=== PATIENT | female | born 2000 | race Hispanic/Latino ===

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

== ENCOUNTER 2020-04-27 18:56 | Emergency (ER) | payer SELFPAY ==
[2020-04-27] MEDS ORDERED: NA CHLORIDE 0.9% 1,000 ML ONE (19:53)
[2020-04-27] MEDS ORDERED: MORPHINE 4 MG/ML SYR ONE (19:53)
[2020-04-27] MEDS ORDERED: ONDANSETRON 4 MG/2 ML VIAL ONE (19:53)
[2020-04-27 20:05] LABS: Absolute Lymphocytes (CBC) 1.4 K/uL (0.7-4.9); Basophils % 0.3 % (0-1.3); Hematocrit 37.9 % (36.0-45.0); Lymphocytes % 17.2 % (15.3-44.8); MPV 9.5 fL (7.6-11.3)
[2020-04-27 20:12] LABS: BUN Blood Urea Nitrogen 10 mg/dL (7-18); Bicarbonate 25 mmol/L (21-32); Glucose Level 119 mg/dL (74-106); Potassium 3.3 mmol/L (3.5-5.1); Sodium Level 141 mmol/L (136-145)
--- NOTE | 2020-04-27 21:09 | RAD REPORT ---
EXAM DESCRIPTION: US - Transvaginal Study Probe - 04/27/2020 8:32 pm CLINICAL HISTORY: ABD PAIN Pelvic pain. COMPARISON: No comparisons FINDINGS: The uterus is normal in size, shape and echotexture. The uterus measures 7.7 x 4.5 x 4.4 c m. The endometrial stripe measures 6 mm, normal. Both ovaries are normal in size, shape and echotexture. The right ovary measures 2.9 x 2.1 x 1.6 cm. The left ovary measures 2.8 x 1.8 x 1.4 cm. No ovarian or parovarian lesions. No adnexal masses. Normal Doppler blood flow was demonstrated to both ovaries. No significant pelvic ascites. IMPRESSION: Unremarkable study.
--- NOTE | 2020-04-27 21:40 | RAD REPORT ---
EXAM DESCRIPTION: CTAbdomen Pelvis W Contrast - 04/27/2020 9:16 pm CLINICAL HISTORY: Abdominal pain. ABD PAIN COMPARISON: No comparisons TECHNIQUE: Biphasic CT imaging of the abdomen and pelvis was performed with 100 ml non-ionic IV cont rast. All CT scans are performed using dose optimization technique as appropriate and may include automated exposure control or mA/KV adjustment according to patient size. FINDINGS: The lung bases are clear. The liver, spleen, pancreas, adrenal glands and kidneys are within normal limits. No bowel obstruction, free air, free fluid or abscess. The appendix is normal. No evidence of signi ficant lymphadenopathy. No suspicious bony findings. IMPRESSION: No acute intra-abdominal or pelvic finding.
[2020-04-27 21:42] LABS: Urine Blood 3+ (NEG); Urine Glucose NEGATIVE (NEG); Urine Protein 1+ (NEG); Urine Specific Gravity 1.025 (1.005-1.030)
--- NOTE | 2020-04-27 21:51 | EDPHYS ---
Physician Documentation [facility] Name: Juliet Elena Age: 19 yrs Sex: Female : 2000 Arrival Date: 04/27/2020 Time: 19:06 Bed 18 Private MD: ED Physician Jori Dominguez HPI: 04/27 22:10 This 19 yrs old Female presents to ER via Wheelchair with complaints of kb Vaginal Bleeding, Near Syncope. 22:10 The patient has not experienced similar symptoms in the past. The patient has not kb recently seen a physician. 22:11 The patient presents with abdominal pain in the left lower quadrant. Onset: The kb symptoms/episode began/occurred just prior to arrival. The symptoms do not radiate. Associated signs and symptoms: Pertinent positives: nausea, vomiting, and diarrhea, vaginal bleeding. The symptoms are described as constant, sharp. Modifying factors: The symptoms are alleviated by nothing, the symptoms are aggravated by nothing. Severity of pain: At its worst the pain was severe in the emergency department the pain is unchanged. Pt reports she started having severe LLQ pain, then vomiting and diarrhea. States the pain made her lightheaded and feel like she was going to pass out. . 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 - Social history:: Smoking status: Patient denies any tobacco usage or history of. ROS: 22:10 Constitutional: Negative for fever, chills, and weight loss, Cardiovascular: Negative kb for chest pain, palpitations, and edema, Respiratory: Negative for shortness of breath, cough, wheezing, and pleuritic chest pain, Back: Negative for injury and pain, MS/Extremity: Negative for injury and deformity, Skin: Negative for injury, rash, and discoloration. 22:10 Abdomen/GI: Positive for abdominal pain, nausea, vomiting, and diarrhea. 22:10 Neuro: Positive for near syncope. Exam: 22:09 Head/Face: Normocephalic, atraumatic. Chest/axilla: Normal chest wall appearance and kb motion. Nontender with no deformity. No lesions are appreciated. Cardiovascular: Regular rate and rhythm with a normal S1 and S2. No gallops, murmurs, or rubs. Normal PMI, no JVD. No pulse deficits. Respiratory: Lungs have equal breath sounds bilaterally, clear to auscultation and percussion. No rales, rhonchi or wheezes noted. No increased work of breathing, no retractions or nasal flaring. Back: No spinal tenderness. No costovertebral tenderness. Full range of motion. Skin: Warm, dry with normal turgor. Normal color with no rashes, no lesions, and no evidence of cellulitis. MS/ Extremity: Pulses equal, no cyanosis. Neurovascular intact. Full, normal range of motion. Neuro: Awake and alert, GCS 15, oriented to person, place, time, and situation. Cranial nerves II-XII grossly intact. Motor strength 5/5 in all extremities. Sensory grossly intact. Cerebellar exam normal. Normal gait. 22:09 Constitutional: The patient appears alert, awake, in obvious pain, pale. 22:09 Abdomen/GI: Inspection: abdomen appears normal, Bowel sounds: normal, in all quadrants, Palpation: soft, in all quadrants, moderate abdominal tenderness, in the left lower quadrant. Vital Signs: 19:15 BP 138 / 83; Pulse 80; Resp 16; Temp 97; Pulse Ox 100% on R/A; Weight 72.57 kg (R); lp1 Height 5 ft. 5 in. (165.10 cm); Pain 10/10; 19:45 BP 136 / 80; Pulse 84; Resp 16; Pulse Ox 97% on R/A; lp1 20:15 BP 122 / 83; Pulse 65; Resp 16; Pulse Ox 99% on R/A; lp1 21:15 BP 110 / 71; Pulse 81; Resp 18; Pulse Ox 99% on R/A; lp1 22:13 BP 104 / 51; Pulse 68; Resp 16; Pulse Ox 99% on R/A; lp1 19:15 Body Mass Index 26.63 (72.57 kg, 165.10 cm) lp1 MDM: 19:10 Patient medically screened. kb 22:04 Data reviewed: vital signs, nurses notes. Data interpreted: Pulse oximetry: on room air kb is 100 %. Interpretation: normal. Counseling: I had a detailed discussion with the patient and/or guardian regarding: the historical points, exam findings, and any diagnostic results supporting the discharge/admit diagnosis, lab results, radiology results, the need for outpatient follow up, a family practitioner, an OB/Gyne specialist, to return to the emergency department if symptoms worsen or persist or if there are any questions or concerns that arise at home. 22:09 ED course: Pt feeling better after intervention, color return to normal.. kb 04/27 19:11 Order name: Basic Metabolic Panel; Complete Time: 20:14 kb 04/27 19:11 Order name: CBC with Diff; Complete Time: 20:10 kb 04/27 19:11 Order name: US Transvaginal Study (Probe); Complete Time: 21:11 kb 04/27 20:58 Order name: CT Abd/Pelvis - IV Contrast Only; Complete Time: 21:41 kb 04/27 21:19 Order name: Urine Dipstick--Ancillary (enter results); Complete Time: 21:50 ar5 04/27 21:19 Order name: Urine --Ancillary (enter results); Complete Time: 21:50 ar5 04/27 19:11 Order name: IV Saline Lock; Complete Time: 19:38 kb 04/27 19:11 Order name: Labs collected and sent; Complete Time: 19:38 kb 04/27 19:11 Order name: Urine Dipstick-Ancillary (obtain specimen); Complete Time: 21:10 kb 04/27 19:11 Order name: Urine Test (obtain specimen); Complete Time: 21:10 kb Administered Medications: 19:45 Drug: NS 0.9% 1000 ml Route: IV; Rate: 1000 ml; Site: right antecubital; lp1 21:10 Follow up: IV Status: Completed infusion; IV Intake: 1000ml lp1 19:45 Drug: Zofran (Ondansetron) 4 mg Route: IVP; Site: right antecubital; lp1 21:11 Follow up: Response: Marked relief of symptoms lp1 19:45 Drug: morphine 4 mg Route: IVP; Site: right antecubital; lp1 21:11 Follow up: Response: Marked relief of symptoms lp1 22:08 Drug: Potassium Chloride 20 mEq Route: PO; lp1 22:09 Follow up: Response: Medication administered at discharge. lp1 Disposition: 04/27/20 21:51 Discharged to Home. Impression: Lower abdominal pain, unspecified. - Condition is Stable. - Discharge Instructions: Abdominal Pain, Adult, [id number]. - Prescriptions for Zofran 4 mg Oral Tablet - take 1 tablet by ORAL route every 6 hours As needed; 20 tablet. Diclofenac Sodium 75 mg Oral Tablet, Delayed Release (E.C.) - take 1 tablet by ORAL route 2 times per day As needed; 30 tablet. - Medication Reconciliation Form, Thank You Letter, Antibiotic Education, Prescription Opioid Use form. - Follow up: Emergency Department; When: As needed; Reason: Worsening of condition. Follow up: Private Physician; When: 2 - 3 days; Reason: Recheck today's complaints, Continuance of care, Re-evaluation by your physician. Addendum: 04/29/2020 21:46 Co-signature as Attending Physician, Jori Dominguez MD. r n Signatures: Dispatcher [employer] EDMT Sara Burkett, APPLE CHECKER-C APPLE CHECKER-Ckb Jori Dominguez MD MD rn Nereyda Cheng RN RN lp1 Corrections: (The following items were deleted from the chart) 04/27 22:14 21:51 04/27/2020 21:51 Discharged to Home. Impression: Lower abdominal pain, lp1 unspecified. Condition is Stable. Forms are Medication Reconciliation Form, Thank You Letter, Antibiotic Education, Prescription Opioid Use. Follow up: Emergency Department; When: As needed; Reason: Worsening of condition. Follow up: Private Physician; When: 2 - 3 days; Reason: Recheck today's complaints, Continuance of care, Re-evaluation by your physician. kb
--- NOTE | 2020-04-27 21:51 | ER ---
Nurse's Notes [facility] Name: Juliet Elena Age: 19 yrs Sex: Female : 2000 Arrival Date: 04/27/2020 Time: 19:06 Bed 18 Private MD: Diagnosis: Lower abdominal pain, unspecified Presentation: 04/27 19:15 Chief complaint: Patient states: About an hour ago patient became light headed, pain to lp1 LLQ of abdomen with x3 episodes of vomiting; reports vaginal bleeding. 19:15 Coronavirus screen: Client denies travel out of the [place] in the last 14 days. At this lp1 time, the client does not indicate any symptoms associated with coronavirus-19. Ebola Screen: No symptoms or risks identified at this time. Initial Sepsis Screen: Does the patient meet any 2 criteria? No. Patient's initial sepsis screen is negative. Does the patient have a suspected source of infection? No. Patient's initial sepsis screen is negative. Risk Assessment: Do you want to hurt yourself or someone else? Patient reports no desire to harm self or others. Onset of symptoms was April 27, 2020 at 18:00. 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 - Social history:: Smoking status: Patient denies any tobacco usage or history of. Screenin:19 Abuse screen: Denies threats or abuse. Denies injuries from another. Nutritional lp1 screening: No deficits noted. Tuberculosis screening: No symptoms or risk factors identified. Fall Risk None identified. Assessment: 19:35 General: Appears uncomfortable, Behavior is appropriate for age. Pain: Complains of lp1 pain in left lower quadrant Pain currently is 10 out of 10 on a pain scale. Quality of pain is described as sharp, stabbing. Neuro: Level of Consciousness is awake, alert, obeys commands, Oriented to person, place, time, situation, Pupils are PERRLA, Reports dizziness. Cardiovascular: Patient's skin is warm and dry. Respiratory: Respiratory effort is even, unlabored, Breath sounds are clear bilaterally. GI: Abdomen is non-distended, Pt is actively vomiting bile, Bowel sounds present X 4 quads. Abdomen is tender to palpation in left lower quadrant Reports nausea, vomiting. : Reports vaginal bleeding that is bright red. EENT: No signs and/or symptoms were reported regarding the EENT system. Derm: Skin is intact, Skin is dry, Skin is pale, Skin temperature is warm. 19:35 Musculoskeletal: No deficits noted. lp1 19:57 Reassessment: Ultrasound at bedside. lp1 21:09 Reassessment: Patient ambulated to bathroom independently Patient states feeling lp1 better. Patient states symptoms have improved. 22:10 Reassessment: Patient appears in no apparent distress at this time. Patient is alert, lp1 oriented x 3, equal unlabored respirations, skin warm/dry/pink. Patient denies pain at this time. Patient states feeling better. Vital Signs: 19:15 BP 138 / 83; Pulse 80; Resp 16; Temp 97; Pulse Ox 100% on R/A; Weight 72.57 kg (R); lp1 Height 5 ft. 5 in. (165.10 cm); Pain 10/10; 19:45 BP 136 / 80; Pulse 84; Resp 16; Pulse Ox 97% on R/A; lp1 20:15 BP 122 / 83; Pulse 65; Resp 16; Pulse Ox 99% on R/A; lp1 21:15 BP 110 / 71; Pulse 81; Resp 18; Pulse Ox 99% on R/A; lp1 22:13 BP 104 / 51; Pulse 68; Resp 16; Pulse Ox 99% on R/A; lp1 19:15 Body Mass Index 26.63 (72.57 kg, 165.10 cm) lp1 ED Course: 19:06 Patient arrived in ED. mr 19:10 [facility] Burkett [facility]C [facility] kb 19:10 Jori Dominguez MD is Attending Physician. kb 19:23 Nereyda Cheng, SAL is Primary Nurse. lp1 19:30 Patient has correct armband on for positive identification. Bed in low position. Call lp1 light in reach. Pulse ox on. NIBP on. 19:35 Arm band placed on. lp1 19:36 Inserted saline lock: 20 gauge in right antecubital area, using aseptic technique. dh4 Blood collected. 20:19 Triage completed. lp1 20:33 Ultrasound completed. Patient tolerated well. Notified ED Physician ale. sg3 20:33 US Transvaginal Study (Probe) In Process Unspecified. EDMS 21:16 CT Abd/Pelvis - IV Contrast Only In Process Unspecified. EDMS 22:13 No provider procedures requiring assistance completed. IV discontinued, No lp1 redness/swelling at site. Pressure dressing applied. Administered Medications: 19:45 Drug: NS 0.9% 1000 ml Route: IV; Rate: 1000 ml; Site: right antecubital; lp1 21:10 Follow up: IV Status: Completed infusion; IV Intake: 1000ml lp1 19:45 Drug: Zofran (Ondansetron) 4 mg Route: IVP; Site: right antecubital; lp1 21:11 Follow up: Response: Marked relief of symptoms lp1 19:45 Drug: morphine 4 mg Route: IVP; Site: right antecubital; lp1 21:11 Follow up: Response: Marked relief of symptoms lp1 22:08 Drug: Potassium Chloride 20 mEq Route: PO; lp1 22:09 Follow up: Response: Medication administered at discharge. lp1 Intake: 21:10 IV: 1000ml; Total: 1000ml. lp1 Outcome: 21:51 Discharge ordered by . kb 22:14 Discharged to home ambulatory, with family. lp1 22:14 Condition: good 22:14 Discharge instructions given to patient, Instructed on discharge instructions, follow up and referral plans. medication usage, Demonstrated understanding of instructions, follow-up care, medications, Prescriptions given X 2. 22:14 Patient left the ED. lp1 Signatures: Dispatcher [employer] EDMS Sara Burkett, JANET FIGUEROAP-Selma Alexander Laura, RN RN lp1 Chelly Scanlon 3 Niko García 4
[2020-04-27] MEDS ORDERED: POTASSIUM CL SA 10 MEQ TAB PO ONE (22:08)
[2020-04-27 23:05] VITALS: O2SAT 99
[2020-04-27 23:07] VITALS: TEMP 97
[2020-04-27 23:09] VITALS: BP 104/51
== END 2020-04-27 22:14 | disposition home or self-care (01) ==
LOC: ER 18:56
DX: R10.32 Left lower quadrant pain (principal); R11.2 Nausea with vomiting, unspecified
CPT/HCPCS: 36415; 74177; 76830; 80048; 81003; 81025; 85025; 96361; 96374; 96375; 99284; J2405; J7030; Q9967

== ENCOUNTER 2024-07-28 16:31 | Emergency (ER) | payer SELFPAY ==
--- OUTSIDE RECORDS SUMMARY | 2024-07-28 16:36 | XMS REPORT | Continuity of Care Document ---
Author Name Unknown Address [address] [facility]. [address] th[address] Address [address] [facility] 1 [address] [place] [address] Care Team Providers Care Social Worker Psychiatric Name Role Phone MERCY AZUL Primary Care Physician Unava MERCY Lawrence Attending Clinician Unavaila GLORIA Becker Attending Clinician Unavailable Gloria Ponce MD Attending Clinician [phone] Doctor Unassigned, Chambers Attending Clinician U Mercy Fernandez CNM Attending Clinician [phone] ZANA GLEASON Attending Clinician Unavail able [facility] Attending Clinician Unavail able Shea Mclaughlin NP Attending Clinician [phone] SHEA MCLAUGHLIN Attending Clinician Unavailable GLORIA PONCE Admitting Clinician Unavailable [facility] Admitting Clinician Unavail able SHEA MCLAUGHLIN Admitting Clinician Unavailable Payers Payer Name Policy Type Policy Number Effective Date Expirati on Date Source [facility] [id number] 2022 00:00:00 [facility] [id number] 2015 00:00:00 Problems Condition Name Condition Details Condition Category Status Onset Date Resolution Date Last Treatment Date Treating Clinician Comments Source Allergic rhinitis Allergic Rhinitis Problem Active 2023-07 00:00: 00 [facility] Exacerbati on of mild persistent asthma Exacerbati on of Mild Persistent Asthma Problem Active 2023-07 00:00: 00 [facility] History of HSV History of HSV Disease Active 2023-0 5-06 00:00: 00 [facility] Asthma Asthma Disease Active 08-02 00:00: 00 [facility] No known active problems No known active problems Disease [facility] Allergies, Adverse Reactions, Alerts Allergy Name Allergy Type Status Severity Reaction(s) Onset Date Inactive Date Treating Clinician Comments Source NO KNOWN ALLERGIE S Drug Class Active [facility] Social History Social Habit Start Date Stop Date Quantity Comments Source [facility]2 (event) 2022-11-02 00:00:00 2022-11-12 08:40:00 Not sure [facility] History of Social function 2022-11-12 00:00:00 2022-11-12 00:00:00 [facility] Tobacco use and exposure 2022-11-12 00:00:00 2022-11-12 00:00:00 Smokeless tobacco non-user [facility] Alcohol intake 2022-11-12 00:00:00 2022-11-12 00:00:00 Ex-drinker (finding) [facility] Alcohol Comment 2022-11-12 00:00:00 2022-11-12 00:00:00 socially [facility] Sex Assigned At 2000 00:00:00 2000 00:00:00 [facility] Smoking Status Start Date Stop Date Source Never smoked tobacco [facility] Medications Ordered Medication Name Filled Medication Name Start Date Stop Date Current Medication? Ordering Clinician Indication Dosage Frequency Signature (SIG) Comments Components Source TAKE 10 ML BY MOUTH EVERY 4 TO 6 HOURS NEEDED FOR COUGH AND CONGESTION 08-03 00:00: 00 Yes Toñito Keene TAKE 10 ML EVERY 4-6 HOURS NEEDED FOR COUGH AND CONGESTION 08-03 00:00: 00 11-01 00:00 :00 No [id number] Toñito Keene ketorolac (TORADOL) injection 30 mg 2022-07 10:00: 00 07-05 09:03 :00 No 30mg 30 mg, Slow IV Push, ONCE, 1 dose, On Tue07/05/23 at 0400, [facility] NaCl 0.9% (NS) bolus infusion 1,000 mL 2022-07 09:45: 00 07-05 10:06 :00 No 1000mL at 999 mL/hr, 1,000 mL, IV Infusion, ONCE, 1 dose, On Tue07/05/23 at 0345, STAT [facility] ondansetron (ZOFRAN (PF)) injection 4 mg 2022-07 09:00: 00 07-05 08:06 :00 No 4mg 4 mg, Slow IV Push, ONCE, 1 dose, On Tue07/05/23 at 0300, [facility] FENTanyl PF (SUBLIMAZE (PF)) injection 75 mcg 2022-07 09:00: 00 07-05 08:07 :00 No 75ug 75 mcg, Slow IV Push, ONCE, 1 dose, On Tue07/05/23 at 0300, STAT [facility] NaCl 0.9% (NS) bolus infusion 1,000 mL 2022-07 09:00: 00 07-05 09:40 :00 No 1000mL at 999 mL/hr, 1,000 mL, IV Infusion, ONCE, 1 dose, On Tue07/05/23 at 0300, STAT [facility] cefTRIAXone (ROCEPHIN) 1,000 mg in NaCl 0.9% (NS) 100 mL MINI-BAG 2022-07 08:45: 00 07-05 09:40 :00 No 1000mg 1,000 mg, IV Piggyback, ONCE, 1 dose, On Tue07/05/23 at 0245, Administer over 30 Minutes, 100 mL
Reas on for Anti-Infec tive: Documented Infection< br>Documen janessa Infection Site: Urine
D uration of Therapy: Other (see Comments) [facility] iopamidol (ISOVUE 370-500 mL) injection 100 mL 2022-07 08:45: 00 07-05 08:45 :00 No [id number] 100mL 100 mL, Intravenou s, ONCE, 1 dose, On Tue07/05/23 at 0245, Routine [facility] TAKE 1 CAPSULE BY MOUTH IN THE MORNING TAKE 1 CAPSULE AT NOON & TAKE 1 CAPSULE IN THE EVENING 2022-07 00:00: 00 Yes Toñito Keene TAKE 1 TABLET BY MOUTH TWICE A DAY (IN THE MORNING AND IN THE EVENING) WITH FOOD FOR 10 DAYS 2022-07 00:00: 00 Yes Toñito Keene TAKE 1 TABLET BY MOUTH EVERY 4 HOURS NEEDED FOR NAUSEA AND VOMITING 2022-07 00:00: 00 Yes Toñito Keene TAKE 1 TABLET EVERY 8 HOURS WITH FOOD NEEDED. 2022-07 00:00: 00 11-01 00:00 :00 No 800 Toñito Keene cephALEXin (KEFLEX) 500 mg capsule 2022-07 00:00: 00 07-05 00:00 :00 No [id number] 500mg Take 1 capsule by mouth in the morning and 1 capsule at noon and 1 capsule in the evening. [facility] ondansetron 4 mg disintegrat ing tablet 2022-07 00:00: 00 07-05 00:00 :00 No [id number] 4mg Take 1 tablet by mouth every 4 (four) hours as needed for Nausea and Vomiting (N/V). [facility] naproxen 500 mg tablet 2022-07 00:00: 00 07-05 00:00 :00 No [id number] 500mg Take 1 tablet by mouth in the morning and 1 tablet in the evening. Take with meals. Do all this for 10 days. [facility] TAKE 1 TABLET DAILY. 2022-07 00:00: 00 Yes 2535 Toñito Keene TAKE 1 TABLET DAILY. 2022-07 00:00: 00 11-01 00:00 :00 No 2535 Toñito Keene TAKE ONE (1) TABLET BY MOUTH EVERY SIX HOURS. 12-31 00:00: 00 Yes Toñito Keene TAKE ONE (1) TABLET BY MOUTH THREE TIMES A DAY. 12-31 00:00: 00 Yes Toñito Keene SWISH AND SPIT 15 ML BY MOUTH TWICE A DAY. 12-31 00:00: 00 Yes Toñito Keene TAKE 1 TABLET DAILY. 6-08 00:00: 00 11-01 00:00 :00 No 2535 Toñito Keene RINSE AND EXPECTORATE WITH 1/2 OUNCE FOR 30 SECONDS TWICE A DAY 12-01 00:00: 00 Yes Toñito Keene TAKE 1 TABLET BY MOUTH TWICE A DAY FOR 7 DAYS 12-01 00:00: 00 Yes Toñito Keene albuterol 90 mcg/actuati on inhaler 11-12 09:16: 28 Yes [id number] albuterol sulfate HFA 90 mcg/actuat ion aerosol inhaler Inhale 2 puffs every 4 hours by inhalation route as needed. [facility] norgestimat e-ethinyl estradiol (SPRINTEC, 28, ORAL) 11-12 09:16: 28 Yes [id number] Take by mouth. [facility] TAKE 1 TABLET DAILY. 4-11 00:00: 00 11-01 00:00 :00 No 2535 Toñito Keene TAKE 1 TABLET DAILY. -03 00:00: 00 11-01 00:00 :00 No 2535 Toñito Keene TAKE 1 TABLET 3 TIMES DAILY. 10-05 00:00: 00 11-01 00:00 :00 No 1 Toñito Keene TAKE 1 TABLET TWICE DAILY WITH MEALS 09-29 00:00: 00 11-01 00:00 :00 No [id number] Toñito Keene TAKE 1 TABLET EVERY 8 HOURS WITH FOOD NEEDED. 16 00:00: 00 11-01 00:00 :00 No 800 Toñito Keene ketorolac (TORADOL) injection 30 mg 2021-07 02:00: 00 06-13 01:07 :00 No 30mg 30 mg, Slow IV Push, ONCE, 1 dose, On 06/12/22 at 2000, Routine [facility] ondansetron (ZOFRAN (PF)) injection 4 mg 2021-07- 01:00: 00 06-13 01:08 :00 No 4mg 4 mg, Slow IV Push, ONCE, 1 dose, On 06/12/22 at 1900, MARTITA [facility] TAKE 1 CAPSULE BY MOUTH EVERY 6 (SIX) HOURS FOR 5 DAYS. 2021-07 00:00: 00 Yes Toñito Keene TAKE 1 TABLET BY MOUTH EVERY 8 HOURS NEEDED FOR NAUSEA AND VOMITING . 2021-07 00:00: 00 Yes Toñito Keene ondansetron 4 mg disintegrat ing tablet 2021-07 00:00: 00 11-12 00:00 :00 No [id number] 4mg Take 1 tablet by mouth every 8 (eight) hours as needed for Nausea and Vomiting (N/V). [facility] cephALEXin 250 mg capsule 2021-07 00:00: 00 06-18 05:59 :00 No [id number] 250mg Take 1 capsule by mouth every 6 (six) hours for 5 days. [facility] Dose Unknown 2018-07 00:00: 00 Yes Toñito Keene Dose Unknown 2018-07 00:00: 00 Yes Toñito Keene Trelegy Ellipta 200 mcg-62.5 mcg-25 mcg powder for inhalation Inhale 1 puff every day by inhalation route. Trelegy Ellipta 200 mcg-62.5 mcg-25 mcg powder for inhalation Inhale 1 puff every day by inhalation route. No 1puff(s ) Q1D Trelegy Ellipta 200 mcg-62.5 mcg-25 mcg powder for inhalation Inhale 1 puff every day by inhalation route. [facility] montelukast 10 mg tablet Take 1 tablet every day by oral route for 90 days. montelukast 10 mg tablet Take 1 tablet every day by oral route for 90 days. No 1 Q1D montelukas t 10 mg tablet Take 1 tablet every day by oral route for 90 days. [facility] Immunizations Ordered Immunization Name Filled Immunization Name Date Status Comments Source HPV9 2022-11-12 00:00:00 Completed [facility] SARS-COV-2 COVID-19 PFIZER VACCINE 2021-02-24 00:00:00 Completed [facility] Meningococcal Polysaccharide (groups A, C, Y and W-135) conjugate vaccine (MCV4P) 2017-06-23 00:00:00 Completed [facility] Meningococcal Polysaccharide (groups A, C, Y and W-135) conjugate vaccine (MCV4P) 2017-06-23 00:00:00 Completed [facility] Meningococcal Polysaccharide (groups A, C, Y and W-135) conjugate vaccine (MCV4P) 2017-06-23 00:00:00 Completed [facility] Influenza Virus Vaccine Quad IM 6-35 MO 2016-04-09 00:00:00 Completed [facility] Influenza Virus Vaccine 2016-04-09 00:00:00 Completed [facility] Influenza, injectable Influenza, injectable 2016-04-09 00:00:00 Completed Toñito Keene HEPATITIS A 2011-10-27 00:00:00 Completed [facility] HPV 2011-10-17 00:00:00 Completed [facility] HEPATITIS A 2010-09-28 00:00:00 Completed [facility] Meningococcal Polysaccharide (groups A, C, Y and W-135) conjugate vaccine (MCV4P) 2010-09-28 00:00:00 Completed [facility] TDAP 2010-09-28 00:00:00 Completed [facility] DTaP, Unspecified Formulation 2002-09-24 00:00:00 Completed [facility] DTAP 2002-09-24 00:00:00 Completed [facility] IPV 2002-09-24 00:00:00 Completed [facility] MMR 2002-09-24 00:00:00 Completed [facility] Hep B, Adol or Pedi Dosage 1998 00:00:00 Completed [facility] Meningococcal Polysaccharide (groups A, C, Y and W-135) conjugate vaccine (MCV4P) Unknown Completed [facility] HPV9 Unknown Completed [facility] HPV Unknown Completed [facility] DTAP Unknown Completed [facility] HEPATITIS A Unknown Completed [facility] Hep B, Adol or Pedi Dosage Unknown Completed [facility] Influenza Virus Vaccine Unknown Completed [facility] SARS-COV-2 COVID-19 PFIZER VACCINE Unknown Completed [facility] IPV Unknown Completed [facility] MMR Unknown Completed [facility] TDAP Unknown Completed [facility] DTaP, Unspecified Formulation Unknown Completed [facility] Influenza Virus Vaccine Quad IM 6-35 MO Unknown Completed [facility] Meningococcal Polysaccharide (groups A, C, Y and W-135) conjugate vaccine (MCV4P) Unknown Completed [facility] HPV9 Unknown Completed [facility] HPV Unknown Completed [facility] DTAP Unknown Completed [facility] HEPATITIS A Unknown Completed [facility] Hep B, Adol or Pedi Dosage Unknown Completed [facility] Influenza Virus Vaccine Unknown Completed [facility] SARS-COV-2 COVID-19 PFIZER VACCINE Unknown Completed [facility] IPV Unknown Completed [facility] MMR Unknown Completed [facility] TDAP Unknown Completed [facility] DTaP, Unspecified Formulation Unknown Completed [facility] Influenza Virus Vaccine Quad IM 6-35 MO Unknown Completed [facility] Vital Signs Vital Name Observation Time Observation Value Comments S ource Height 2024-04-27 00:00:00 65 [in_i] [facility] BMI (Body Mass Index) 2024-04-27 00:00:00 30.8 kg/m2 [facility] Body Weight 2024-04-27 00:00:00 2963.2 [oz_av] [facility] BP Diastolic 2024-04-27 00:00:00 117 mm[Hg] [facility] BP Systolic 2024-04-27 00:00:00 129 mm[Hg] [facility] BP Systolic 2023-11-10 00:00:00 110 mm[Hg] [facility] Body Weight 2023-11-10 00:00:00 3052.8 [oz_av] [facility] BP Diastolic 2023-11-10 00:00:00 91 mm[Hg] [facility] Height 2023-11-10 00:00:00 65 [in_i] [facility] BMI (Body Mass Index) 2023-11-10 00:00:00 31.8 kg/m2 [facility] Systolic blood pressure 2023-07-05 09:19:00 111 mm[Hg] [facility] Diastolic blood pressure 2023-07-05 09:19:00 67 mm[Hg] [facility] Heart rate 2023-07-05 09:19:00 81 /min [facility] Respiratory rate 2023-07-05 09:19:00 18 /min [facility] Oxygen saturation in Arterial blood by Pulse oximetry 2023-07-05 09:19:00 100 /min [facility] Body temperature 2023-07-05 07:15:00 36.78 Erendira [facility] Body height 2023-07-05 07:15:00 167.6 cm [facility] Body weight 2023-07-05 07:15:00 85.049 kg [facility] BMI 2023-07-05 07:15:00 30.26 kg/m2 [facility] Systolic blood pressure 2022-11-12 14:00:00 135 mm[Hg] [facility] Diastolic blood pressure 2022-11-12 14:00:00 83 mm[Hg] [facility] Heart rate 2022-11-12 14:00:00 82 /min [facility] Body temperature 2022-11-12 14:00:00 36.33 Erendira [facility] Respiratory rate 2022-11-12 14:00:00 20 /min [facility] Body height 2022-11-12 14:00:00 167.6 cm [facility] Body weight 2022-11-12 14:00:00 81.829 kg [facility] BMI 2022-11-12 14:00:00 29.12 kg/m2 [facility] Height 2022-08-02 00:00:00 65 [in_i] [facility] BMI (Body Mass Index) 2022-08-02 00:00:00 29.4 kg/m2 [facility] BP Systolic 2022-08-02 00:00:00 106 mm[Hg] [facility] Body Weight 2022-08-02 00:00:00 2824 [oz_av] [facility] BP Diastolic 2022-08-02 00:00:00 80 mm[Hg] [facility] Systolic blood pressure 2022-06-13 02:00:00 116 mm[Hg] [facility] Diastolic blood pressure 2022-06-13 02:00:00 67 mm[Hg] Lindsay o [facility] Heart rate 2022-06-13 02:00:00 72 /min [facility] Respiratory rate 2022-06-13 02:00:00 16 /min [facility] Oxygen saturation in Arterial blood by Pulse oximetry 2022-06-13 02:00:00 100 /min [facility] Body temperature 2022-06-13 00:54:02 37.22 Erendira [facility] Body height 2022-06-13 00:39:00 167.6 cm [facility] Body weight 2022-06-13 00:39:00 79.379 kg [facility] BMI 2022-06-13 00:39:00 28.25 kg/m2 [facility] BP Systolic 2024-06-15 15:01:00 134 mm[Hg] Step [facility] BP Diastolic 2024-06-15 15:01:00 70 mm[Hg] Darwin phen [facility] Weight Measured 2024-06-15 15:01:00 191.00 pounds Toñitosalvador Keene Height Measured 2024-06-15 15:01:00 66.00 inches Toñitosalvador Keene Body Temperature 2024-06-15 15:01:00 98.20 degrees Toñito F Jassi Heart Rate 2024-06-15 15:01:00 69.00 /min Bella en F [facility] Respiratory Rate 2024-06-15 15:01:00 18.00 /min Toñito F Jassi BP Systolic 2024-06-05 17:48:00 118 mm[Hg] Step hen F [facility] BP Diastolic 2024-06-05 17:48:00 67 mm[Hg] Darwin phen [facility] Weight Measured 2024-06-05 17:48:00 191.40 pounds Toñitosalvador Keene Height Measured 2024-06-05 17:48:00 66.00 inches Toñitosalvador Keene Body Temperature 2024-06-05 17:48:00 98.40 degrees Toñito F Jassi Heart Rate 2024-06-05 17:48:00 80.00 /min Bella en F [facility] Respiratory Rate 2024-06-05 17:48:00 Toñito F Jassi BP Systolic 2024-04-04 08:38:00 116 mm[Hg] Step hen F [facility] BP Diastolic 2024-04-04 08:38:00 67 mm[Hg] Darwin phen F [facility] Weight Measured 2024-04-04 08:38:00 185.50 pounds Toñito F Jassi Height Measured 2024-04-04 08:38:00 66.00 inches Toñito F Jassi Body Temperature 2024-04-04 08:38:00 97.90 degrees Toñito F Jassi Heart Rate 2024-04-04 08:38:00 71.00 /min Bella en F [facility] Respiratory Rate 2024-04-04 08:38:00 18.00 /min Toñito F Jassi BP Systolic 2024-01-09 16:49:00 128 mm[Hg] Step hen F [facility] BP Diastolic 2024-01-09 16:49:00 81 mm[Hg] Darwin phen F [facility]ass[facility] Weight Measured 2024-01-09 16:49:00 178.00 pounds Toñito F Jassi Height Measured 2024-01-09 16:49:00 66.00 inches Toñito F Jassi Body Temperature 2024-01-09 16:49:00 97.40 degrees Toñito F Jassi Heart Rate 2024-01-09 16:49:00 72.00 /min Bella en F [facility] Respiratory Rate 2024-01-09 16:49:00 Toñito F Jassi BP Systolic 2023-08-03 17:24:00 136 mm[Hg] Step hen F [facility] BP Diastolic 2023-08-03 17:24:00 85 mm[Hg] Darwin phen F [facility] Weight Measured 2023-08-03 17:24:00 186.00 pounds Toñito F Jassi Height Measured 2023-08-03 17:24:00 66.00 inches Toñito F Jassi Body Temperature 2023-08-03 17:24:00 98.30 degrees Toñito F Jassi Heart Rate 2023-08-03 17:24:00 116.00 /min Step [facility] Respiratory Rate 2023-08-03 17:24:00 Toñito F Jassi BP Systolic 2023-07-05 15:22:00 111 mm[Hg] Step hen F [facility]ass[facility] BP Diastolic 2023-07-05 15:22:00 72 mm[Hg] Darwin phen F [facility] Weight Measured 2023-07-05 15:22:00 189.00 pounds Toñito F Jassi Height Measured 2023-07-05 15:22:00 66.00 inches Toñtio F Jassi Body Temperature 2023-07-05 15:22:00 97.90 degrees Toñito F Jassi Heart Rate 2023-07-05 15:22:00 74.00 /min Bella en F Jassi Respiratory Rate 2023-07-05 15:22:00 18.00 /min Toñito F Jassi BP Systolic 2023-05-09 16:58:00 122 mm[Hg] Step hen F [facility]ass[facility] BP Diastolic 2023-05-09 16:58:00 73 mm[Hg] Darwin phen F [facility]ass[facility] Weight Measured 2023-05-09 16:58:00 185.40 pounds Toñito F Jassi Height Measured 2023-05-09 16:58:00 66.00 inches Toñito F Jassi Body Temperature 2023-05-09 16:58:00 97.40 degrees Toñito F Jassi Heart Rate 2023-05-09 16:58:00 67.00 /min Bella en F Jassi Respiratory Rate 2023-05-09 16:58:00 Toñito F Jassi BP Systolic 2023-02-25 15:01:00 120 mm[Hg] Step hen F Jassi BP Diastolic 2023-02-25 15:01:00 65 mm[Hg] Darwin phen F [facility] Weight Measured 2023-02-25 15:01:00 185.00 pounds Toñito F Jassi Height Measured 2023-02-25 15:01:00 66.00 inches Toñito F Jassi Body Temperature 2023-02-25 15:01:00 97.90 degrees Toñito F Jassi Heart Rate 2023-02-25 15:01:00 73.00 /min Bella en F Jassi Respiratory Rate 2023-02-25 15:01:00 Toñito F Jassi BP Systolic 2022-12-15 16:10:00 130 mm[Hg] Step hen F Jassi BP Diastolic 2022-12-15 16:10:00 77 mm[Hg] Darwin phen [facility] Weight Measured 2022-12-15 16:10:00 182.80 pounds Toñito F Jassi Height Measured 2022-12-15 16:10:00 66.00 inches Toñito F Jassi Body Temperature 2022-12-15 16:10:00 97.40 degrees Toñito F Jassi Heart Rate 2022-12-15 16:10:00 70.00 /min Bella en F Jassi Respiratory Rate 2022-12-15 16:10:00 Toñito F Jassi BP Systolic 2022-10-19 15:55:00 120 mm[Hg] Step hen F Jassi BP Diastolic 2022-10-19 15:55:00 75 mm[Hg] Darwin phen F [facility]ass[facility] Weight Measured 2022-10-19 15:55:00 184.60 pounds Toñito F Jassi Height Measured 2022-10-19 15:55:00 66.00 inches Toñito F Jassi Body Temperature 2022-10-19 15:55:00 97.90 degrees Toñito F Jassi Heart Rate 2022-10-19 15:55:00 70.00 /min Bella en F Jassi Respiratory Rate 2022-10-19 15:55:00 Toñito F Jassi BP Systolic 2022-10-11 15:43:00 130 mm[Hg] Step hen F Jassi BP Diastolic 2022-10-11 15:43:00 68 mm[Hg] Darwin phen F Jass[facility] Weight Measured 2022-10-11 15:43:00 182.40 pounds Toñito F Jassi Height Measured 2022-10-11 15:43:00 66.00 inches Toñito F Jassi Body Temperature 2022-10-11 15:43:00 98.50 degrees Toñito F Jassi Heart Rate 2022-10-11 15:43:00 76.00 /min Bella en F Jassi Respiratory Rate 2022-10-11 15:43:00 Toñito F Jassi BP Systolic 2022-10-05 16:19:00 133 mm[Hg] Step hen F Jassi BP Diastolic 2022-10-05 16:19:00 74 mm[Hg] Darwin phen F Jass[facility] Weight Measured 2022-10-05 16:19:00 181.40 pounds Toñito F Jassi Height Measured 2022-10-05 16:19:00 66.00 inches Toñito F Jassi Body Temperature 2022-10-05 16:19:00 97.90 degrees Toñito F Jassi Heart Rate 2022-10-05 16:19:00 77.00 /min Bella en F Jassi Respiratory Rate 2022-10-05 16:19:00 Toñito Keene BP Systolic 2022-09-23 15:26:00 118 mm[Hg] Melvin Keene BP Diastolic 2022-09-23 15:26:00 67 mm[Hg] Darwin Keene Weight Measured 2022-09-23 15:26:00 181.40 pounds Toñito Keene Height Measured 2022-09-23 15:26:00 66.00 inches Toñito Keene Body Temperature 2022-09-23 15:26:00 98.50 degrees Toñito Keene Heart Rate 2022-09-23 15:26:00 89.00 /min Bella en Danay Keene Respiratory Rate 2022-09-23 15:26:00 24.00 /min Toñito Keene Procedures Procedure Date / Time Performed Performing Clinicia n Source CT ABDOMEN PELVIS W CONTRAST 2023-07-05 07:57:14 Gloria Ponce [facility] LIPASE 2023-07-05 07:33:00 Gloria Ponce [facility] COMP. METABOLIC PANEL ([id number]) 2023-07-05 07:33:00 Gloria Ponce [facility] CBC WITH DIFF 2023-07-05 07:33:00 Gloria Ponce [facility] URINALYSIS 2023-07-05 07:33:00 Gloria Ponce [facility] POCT TEST 2023-07-05 07:26:00 Rosy Ponce [facility] NOTICE OF PRIVACY PRACTICES 2023-07-05 07:11:46 Doctor Unassigned, Chambers [facility] CONSENT/REFUSAL FOR DIAGNOSIS AND TREATMENT 2023-07-05 07:11:11 Doctor Unassigned, Chambers [facility] PAP SMEAR-LIQUID BASED-CP 2022-11-12 16:34:00 Mercy Azul [facility] GARDASIL 9 (HPV 9V) VACCINE 2022-11-12 14:41:46 Mercy Azul [facility] ASSIGNMENT OF BENEFITS 2022-11-12 13:38:22 Docto r Unassigned, Chambers [facility] CT ABDOMEN PELVIS WO CONTRAST 2022-06-13 01:18:23 Shea Mclaughlin [facility] COMP. METABOLIC PANEL ([id number]) 2022-06-13 01:07:00 Shea Mclaughlin [facility] CBC WITH DIFF 2022-06-13 01:07:00 Shea Mclaughlin [facility] URINALYSIS 2022-06-13 01:07:00 Shea Mclaughlin [facility] POCT TEST 2022-06-13 01:07:00 Shea Mclaughlin [facility] NOTICE OF PRIVACY PRACTICES 2022-06-13 00:34:58 Doctor Unassigned, Chambers [facility] CONSENT/REFUSAL FOR DIAGNOSIS AND TREATMENT 2022-06-13 00:34:28 Doctor Unassigned, Chambers [facility] Encounters Start Date/Time End Date/Time Encounter Type Admission Type Attending [facility] Facility Care Department Encounter ID Source 2024-07-03 09:20:09 2024-07-03 09:20:[address] [facility] [id number] Toñito Keene 2024-06-15 00:00:00 2024-06-15 00:00:00 Outpatient Visit [facility] [id number] Toñito Keene 2024-06-05 17:34:10 2024-06-05 17:34:10 Outpatient [facility] [id number] Toñito Keene 2024-06-05 00:00:00 2024-06-05 00:00:00 Outpatient Visit [facility] [id number] Toñito Keene 2024-04-27 00:00:00 2024-04-27 00:00:00 BEVERLY Whelan-: [address] [address] , Ph. Formerly [facility], [facility]–1983 - [facility]_Need [facility] [id number] [facility] 2024-04-04 08:32:45 2024-04-04 08:32:[address] [facility] [id number] Toñito Keene 2024-04-04 00:00:00 2024-04-04 00:00:00 Outpatient Visit [facility] [id number] Toñito Keene 2024-01-09 16:47:19 2024-01-09 16:47:[address] 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 Formerly [facility], 1928–1983 - [facility] Office [id number] [facility] 2023-08-03 17:13:14 2023-08-03 17:13:[address] [facility] [facility] [id number] Toñito Keene 2023-07-05 15:13:41 2023-07-05 15:13:[address] [facility] [id number] Toñito Keene 2023-07-05 01:29:00 2023-07-05 04:13:00 Emergency X GLORIA PONCE [facility] ERT [id number] [facility] 2023-07-05 01:29:00 2023-07-05 04:13:00 Emergency Gloria Ponce [facility] 1.2.840.114 350.1.13.10 4.2.7.2.686 [id number] [facility] 2023-07-05 00:00:00 2023-07-05 00:00:00 Orders Only Doctor Unassigned, [facility] 1.2.840.114 350.1.13.10 4.2.7.2.686 [id number] [facility] 2023-05-09 16:52:07 2023-05-09 16:52:[address] [facility] [facility] 1030 Toñito Jon Caneadea 2023-02-25 15:02:57 2023-02-25 15:02:[address] [facility] 0818 Toñito Jon Caneadea 2022-12-15 15:58:16 2022-12-15 15:58:[address] [facility] [facility] 0607 Toñito Jon Caneadea 2022-11-12 09:00:00 2022-11-12 09:53:38 Outpatient R [facility] [id number] [facility] 2022-11-12 09:00:00 2022-11-12 09:53:38 Office Visit Mercy Azul [facility] 1.2.840.114 350.1.13.10 4.2.7.2.686 [id number] [facility] 2022-11-12 00:00:00 2022-11-12 00:00:00 Orders Only Doctor Unassigned, Chambers [facility] 1.2.840.114 350.1.13.10 4.2.7.2.686 [id number] [facility] 2022-10-19 15:47:56 2022-10-19 15:47:[address] [facility] [facility] [id number] Toñito Keene 2022-10-11 15:40:17 2022-10-11 15:40:[address] [facility] [id number] Toñito Jon Caneadea 2022-10-05 16:14:49 2022-10-05 16:14:49 Outpatient [facility] [id number] Toñito Keene 2022-09-23 15:25:56 2022-09-23 15:25:56 Outpatient [facility] 0316 Toñito Keene 2022-08-02 00:00:00 2022-08-02 00:00:00 Outpatient GC_CPC_Walk InSchedul [facility] [id number] [facility] 2022-08-02 00:00:00 2022-08-02 00:00:00 Thea Talbot PA: [id number] [address] , Ph. Formerly [facility], [facility]–1983 - GC_CPC_Need martina Office [id number] [facility] 2022-06-12 18:51:00 2022-06-12 20:28:00 Emergency Shea Mclaughlin Tiffani [facility] 1.2.840.114 350.1.13.10 4.2.7.2.686 [id number] [facility] 2022-06-12 18:51:00 2022-06-12 20:28:00 Emergency X SHEA MCLAUGHLIN [facility] ERT [id number] [facility] 2022-06-10 10:07:51 2022-06-10 10:07:51 Outpatient [facility] 1201 Toñito Keene Results Test Description Test Time Test Comments Results Result Co mments Source [id number] 04:53:51* Test Item Value Reference Range Interpretation Comme nts TESTOSTERONE (test code = 2830) <12 NG/DL <=55 NOTE: TOTAL TESTOSTERONE ASSAY SENSITIVITY IS 12 NG/DL. TO DETERMINE NORMAL VS. SUBNORMAL TESTOSTERONE IN CHILDREN AND WOMEN, CONSIDER TESTING WITH ULTRASENSITIVE TESTOSTERONE. [id number] 04:53:41* Test Item Value Reference Range Interpretation Comme nts PROLACTIN (test code = 2800) 19.4 NG/ML 5.0-37.0 NOTE: Methodolog y is Carline Olimpia Electrochemiluminescence Immunoassay (ECLIA). Values obtained with different assays/manufacturers cannot be used interchangeably. Results should not be used as sole basis to establish the presence or absence of malignancy. FSH + LH [id number] 04:53:41* Test Item Value Reference Range Interpretation Comme nts FOLLICLE STIM HORMONE (test code = 2700) 7.1 IU/L SEE BELOW EXPEC JANESSA VALUES FOR FSH FOR FEMALES >17 YEARS FOLLICULAR 3.5-12.5 IU/L MID-CYCLE PEAK 4.7-21.5 IU/L LUTEAL PHASE 1.7-7.7 IU/L POSTMENOPAUSAL 25.8-134.8 IU/L LUTEINIZING HORMONE (test code = 2776) 7.0 IU/L SEE BELOW EXPEC JANESSA VALUES FOR LH FOR FEMALES >17 YEARS MALES FEMALES >=18 YEARS 1.8-8.6 IU/L FOLLICULAR 2.4-12.6 IU/L MID-CYCLE PEAK 14.0-95.6 IU/L LUTEAL PHASE 1.0-11.4 IU/L POSTMENOPAUSAL 7.7-58.5 IU/L [id number] 04:53:41* Test Item Value Reference Range Interpretation Comme nts PROGESTERONE (test code = 2790) <0.20 NG/ML SEE BELOW EXPECTED VALUES FOR PROGESTERONE MALE . . . . . . . . . . . . . . . . NG/ML <0.20 FEMALE FOLLICULAR PHASE . . . . . . . . . NG/ML <0.90 OVULATION . . . . . . . . . . . . NG/ML <12.00 LUTEAL PHASE . . . . . . . . . . . NG/ML 1.83-23.90 POSTMENOPAUSAL . . . . . . . . . . NG/ML <0.20 1ST TRIMESTER. . . . . . . . . . . NG/ML 11.00-44.30 2ND TRIMESTER. . . . . . . . . . . NG/ML 25.40-83.30 3RD TRIMESTER. . . . . . . . . . . NG/ML 58.70-214.00 [id number] 04:53:41* Test Item Value Reference Range Interpretation Comme nts ESTRADIOL (test code = 2505) 30.0 PG/ML SEE BELOW EXPECTED VALUES FOR ESTRADIOL FOR FEMALES >=18 YEARS FOLLICULAR . . . . . . . . . . . . . PG/ML 12.4-233.0 OVULATION. . . . . . . . . . . . . . PG/ML 41.0-398.0 LUTEAL PHASE . . . . . . . . . . . . PG/ML 22.3-341.0 POSTMENOPAUSAL SUPPLEMENTED/NON-SUPP . PG/ML <138.0/<20.0 NOTE: TO DETERMINE NORMAL VS. SUBNORMAL ESTRADIOL IN POSTMENOPAUSAL FEMALES, CONSIDER ULTRASENSITIVE ESTRADIOL ([facility] ORDER CODE 5678). METHODOLOGY IS CARLINE OLIMPIA ELECTROCHEMILUMINESCENT IMMUNOASSAY WITH A LIMIT OF DETECTION OF 17 PG/ML. TSH, THIRD [id number] 04:53:41* Test Item Value Reference Range Interpretation Comme [facility] TSH, THIRD GENERATION (test code = 2821) 2.000 UIU/ML 0.400-4.100 HCG, [id number] 04:08:38* Test Item Value Reference Range Interpretation Comme nts HCG, QUANTITATIVE (test code = 2506) <5 MIU/ML SEE BELOW EXPEC JANESSA VALUES FOR HCG GST.AGE UNITS RANGE GST. AGE UNITS RANGE3 WEEKS MIU/ML 6-71 10 WEEKS MIU/ML 46,509-186,9774 WEEKS MIU/ML 10-750 12 WEEKS MIU/ML 27,832-210,6125 WEEKS MIU/ML 217-7,138 14 WEEKS MIU/ML 13,950-62,5306 WEEKS MIU/ML 158-31,795 15 WEEKS MIU/ML 12,039-70,9717 WEEKS MIU/ML 3,697-163,563 16 WEEKS MIU/ML 9,040-56,4518 WEEKS MIU/ML 32,065-149,571 17 WEEKS MIU/ML 8,175-55,8689 WEEKS MIU/ML 63,803-151,410 18 WEEKS MIU/ML 8,099-58,176MALES and NON- FEMALES . . . . . . . . MIU/ML 6-1NHRX-GXQYFQPIBI FEMALES . . . . . . . . . . . . MIU/ML <=7 UNLESS OTHERWISE INDICATED, ALL TESTING PERFORMED AT [facility] [address] [place] [address] CLINICAL DOCUMENTATION CLERK: TULIO WILLIAM M.D. CLIA NUMBER [id number] [place]. [id number] HCG, [id number] 00:00:00* Test Item Value Reference Range Interpretation Comme nts HCG, QUANTITATIVE (test code = 2506) <5 MIU/ML Toñito KeeneHCG, [id number] 00:00:00* Test Item Value Reference Range Interpretation Comme nts HCG, QUANTITATIVE (test code = 2506) <5 MIU/ML Toñito KeeneCULTURE, [id number] 08:04:45SPECIMEN NUMBER: [id number] CULTURE, URINE SPECIMEN NUMBER: [id number] SPECIMEN COMMENT: URINE SOURCE: URINE REPORT STATUS: FINAL FINAL REPORT: 07/07/2023 NO GROWTH AFTER 36 HOURS INCUBATION UNLESS OTHERWISE INDICATED, ALL TESTING PERFORMED AT [facility] [address] [place] [address] CLINICAL DOCUMENTATION CLERK: TULIO WILLIAM M.D. CLIA NUMBER [id number] [place].[id number] CULTURE, [id number] 00:00:00* Test Item Value Reference Range Interpretation Comme nts CULTURE, URINE (test code = 84651) SPECIMEN NUMBER: [id number] Toñito KeeneCULTURE, [id number] 00:00:00* Test Item Value Reference Range Interpretation Comme nts CULTURE, URINE (test code = 31949) SPECIMEN NUMBER: [id number] Toñito KeeneCULTURE, [id number] 00:00:00* Test Item Value Reference Range Interpretation Comme nts CULTURE, URINE (test code = 40532) SPECIMEN NUMBER: [id number] Toñito KeeneCULTURE, [id number] 00:00:00* Test Item Value Reference Range Interpretation Comme nts CULTURE, URINE (test code = 45355) SPECIMEN NUMBER: [id number] Toñito KeeneCT ABDOMEN PELVIS W [id number] 08:40:07ORDERING PHYSICIAN: GLORIA PONCE CLINICAL HISTORY: Abdominal pain, left-sided COMPARISON: None available. TECHNIQUE: Helical CT images of the abdomen and pelvis obtained with IVcontrast. CT scan performed according to ALARA (As low as reasonablyachievable) principles. FINDINGS: Heart size is normal. Lower lungs are clear. The liver is unremarkable. Thegallbladder, pancreas, spleen, adrenals, and kidneys are unremarkable.There is no hydronephrosis. The appendix is normal. Bladder isunremarkable. The uterus and adnexa are unremarkable. The bones areunremarkable.[facility] 07:26:00* Test Item Value Reference Range Interpretation Comme [facility] POCT PREG (test code = 1605) Negative On board controls acceptable with C Line (test code = 3574) Yes POCT PREG LOT # (test code = 3575) [id number] POCT PREG TEST DATE ( test code = 3576) 09/18/2024 Lab Interpretation (test cod e = 74672-0) Normal [facility], [id number] 09:44:11* Test Item Value Reference Range Interpretation Comme [facility] HCG, QUANTITATIVE (test code = 2506) <5 MIU/ML SEE BELOW EXPEC JANESSA VALUES FOR HCG GST.AGE UNITS RANGE GST. AGE UNITS RANGE3 WEEKS MIU/ML 6-71 10 WEEKS MIU/ML 46,509-186,9774 WEEKS MIU/ML 10-750 12 WEEKS MIU/ML 27,832-210,6125 WEEKS MIU/ML 217-7,138 14 WEEKS MIU/ML 13,950-62,5306 WEEKS MIU/ML 158-31,795 15 WEEKS MIU/ML 12,039-70,9717 WEEKS MIU/ML 3,697-163,563 16 WEEKS MIU/ML 9,040-56,4518 WEEKS MIU/ML 32,065-149,571 17 WEEKS MIU/ML 8,175-55,8689 WEEKS MIU/ML 63,803-151,410 18 WEEKS MIU/ML 8,099-58,176MALES and NON- FEMALES . . . . . . . . MIU/ML 3-4OBNE-NGLBAMTOPM FEMALES . . . . . . . . . . . . MIU/ML <=7 UNLESS OTHERWISE INDICATED, ALL TESTING PERFORMED AT [facility] [address] [place] [address] CLINICAL DOCUMENTATION CLERK: TULIO WILLIAM M.D. CLIA NUMBER [id number] [facility] [place]. [id number] HCG, [id number] 00:00:00* Test Item Value Reference Range Interpretation Comme nts HCG, QUANTITATIVE (test code = 2506) <5 MIU/ML Toñito Danay AustinHCG, [id number] 00:00:00* Test Item Value Reference Range Interpretation Comme nts HCG, QUANTITATIVE (test code = 2506) <5 MIU/ML Toñiot F AustinHCG, [id number] 00:00:00* Test Item Value Reference Range Interpretation Comme nts HCG, QUANTITATIVE (test code = 2506) <5 MIU/ML Toñito F AustinHCG, [id number] 00:00:00* Test Item Value Reference Range Interpretation Comme nts HCG, QUANTITATIVE (test code = 2506) <5 MIU/ML Toñito KeeneHCG, [id number] 09:25:45* Test Item Value Reference Range Interpretation Comme nts HCG, QUANTITATIVE (test code = 2506) <5 MIU/ML SEE BELOW EXPEC JANESSA VALUES FOR HCG GST.AGE UNITS RANGE GST. AGE UNITS RANGE3 WEEKS MIU/ML 6-71 10 WEEKS MIU/ML 46,509-186,9774 WEEKS MIU/ML 10-750 12 WEEKS MIU/ML 27,832-210,6125 WEEKS MIU/ML 217-7,138 14 WEEKS MIU/ML 13,950-62,5306 WEEKS MIU/ML 158-31,795 15 WEEKS MIU/ML 12,039-70,9717 WEEKS MIU/ML 3,697-163,563 16 WEEKS MIU/ML 9,040-56,4518 WEEKS MIU/ML 32,065-149,571 17 WEEKS MIU/ML 8,175-55,8689 WEEKS MIU/ML 63,803-151,410 18 WEEKS MIU/ML 8,099-58,176MALES and NON- FEMALES . . . . . . . . MIU/ML 4-5KFPP-MDGQYYEJYX FEMALES . . . . . . . . . . . . MIU/ML <=7 UNLESS OTHERWISE INDICATED, ALL TESTING PERFORMED AT [facility] [address] [place] [address] CLINICAL DOCUMENTATION CLERK: TULIO WILLIAM M.D. CLIA NUMBER [id number] [facility] [place]. [id number] HCG, [id number] 00:00:00* Test Item Value Reference Range Interpretation Comme nts HCG, QUANTITATIVE (test code = 2506) <5 MIU/ML Toñito F AustinHCG, [id number] 00:00:00* Test Item Value Reference Range Interpretation Comme nts HCG, QUANTITATIVE (test code = 2506) <5 MIU/ML Toñito F AustinHCG, [id number] 00:00:00* Test Item Value Reference Range Interpretation Comme nts HCG, QUANTITATIVE (test code = 2506) <5 MIU/ML Toñito F AustinHCG, [id number] 00:00:00* Test Item Value Reference Range Interpretation Comme nts HCG, QUANTITATIVE (test code = 2506) <5 MIU/ML Toñito F AustinANA NON-REFLEX TO [id number] 03:13:07* Test Item Value Reference Range Interpretation Comme nts ANTI-NUCLEAR ANTIBODIES (test code = 3506) NEGATIVE NEGATIVE METHODOLOGY IS I NDIRECT IMMUNOFLUORESCENT ASSAY (IFA) WITH HUMAN EPITHELIAL (HEP-2) CELL LINE SUBSTRATE. MUKUL NON-REFLEX TO [id number] 00:00:00* Test Item Value Reference Range Interpretation Comme nts ANTI-NUCLEAR ANTIBODIES (sunni t code = 3506) NEGATIVE Toñito F AustinANA NON-REFLEX TO [id number] 00:00:00* Test Item Value Reference Range Interpretation Comme nts ANTI-NUCLEAR ANTIBODIES (sunni t code = 3506) NEGATIVE Toñito F AustinANA NON-REFLEX TO [id number] 00:00:00* Test Item Value Reference Range Interpretation Comme nts ANTI-NUCLEAR ANTIBODIES (sunni t code = 3506) NEGATIVE Toñito F AustinANA NON-REFLEX TO [id number] 00:00:00* Test Item Value Reference Range Interpretation Comme nts ANTI-NUCLEAR ANTIBODIES (sunni t code = 3506) NEGATIVE Toñito F AustinCOMPREHENSIVE METABOLIC [id number] 04:01:02* Test Item Value Reference Range Interpretation Comme nts GLUCOSE (test code = 2216) 94 MG/DL 70-99 BUN (test code = 2207) 9 MG/DL 6-20 CREATININE (test code = 2213) 0.58 MG/DL 0.60-1.30 L eGFR (2020 CKD-EPI) (test code = ) 130 ML/MIN/1.73 >60 CALC BUN/CREAT (test code = 5) 16 RATIO 6-28 SODIUM (test code = 223) 143 MEQ/L 133-146 POTASSIUM (test code = 222) 4.2 MEQ/L 3.5-5.4 CHLORIDE (test code = 2214) 106 MEQ/L 95-107 CARBON DIOXIDE (test code = 2205) 23 MEQ/L 19-31 CALCIUM (test code = 2208) 9.5 MG/DL 8.5-10.5 PROTEIN, TOTAL (test code = 2228) 7.6 G/DL 6.1-8.3 ALBUMIN (test code = 2200) 4.6 G/DL 3.5-5.2 CALC GLOBULIN (test code = 2240) 3.0 G/DL 1.9-3.7 CALC A/G RATIO (test code = 2233) 1.5 RATIO 1.0-2.6 BILIRUBIN, TOTAL (test code = 2206) 0.7 MG/DL See_Comment [Automated me ssage] The system which generated this result transmitted reference range: <=1.2. The reference range was not used to interpret this result as normal/abnormal. ALKALINE PHOSPHATASE (test code = 2203) 74 U/L 40-115 AST (test code = 2218) 14 U/L 9-40 ALT (test code = 2219) 17 U/L 5-40 [facility] has impo rtant pathology staff changes effective 09/08/2022. New pathology staff will provide uninterrupted, excellent patient care and clinical consultation. See URL: [email or web address]. UNLESS OTHERWISE INDICATED, ALL TESTING PERFORMED AT [facility] [address] [place] [address] CLINICAL DOCUMENTATION CLERK: TULIO WILLIAM M.D. MICHAEL NUMBER [id number] [facility] [place]. [id number] COMPREHENSIVE METABOLIC [id number] 00:00:00* Test Item Value Reference Range Interpretation Comme nts GLUCOSE (test code = 2217) 94 MG/DL BUN (test code = 2208) 9 MG/DL CREATININE (test code = 2214) 0.58 MG/DL eGFR (2020 CKD-EPI) (test code = 50804) 130 ML/MIN/1.73 CALC BUN/CREAT (test code = 2235) 16 RATIO SODIUM (test code = 2231) 143 MEQ/L POTASSIUM (test code = 2228) 4.2 MEQ/L CHLORIDE (test code = 2215) 106 MEQ/L CARBON DIOXIDE (test code = 2206) 23 MEQ/L CALCIUM (test code = 2209) 9.5 MG/DL PROTEIN, TOTAL (test code = 2229) 7.6 G/DL ALBUMIN (test code = 2201) 4.6 G/DL CALC GLOBULIN (test code = 2240) 3.0 G/DL CALC A/G RATIO (test code = 2234) 1.5 RATIO BILIRUBIN, TOTAL (test code = 2207) 0.7 MG/DL ALKALINE PHOSPHATASE (test code = 2204) 74 U/L AST (test code = 2218) 14 U/L ALT (test code = 2219) 17 U/L Toñito Jon JassiCOMPREHENSIVE METABOLIC [id number] 00:00:00* Test Item Value Reference Range Interpretation Comme nts GLUCOSE (test code = 2217) 94 MG/DL BUN (test code = 2208) 9 MG/DL CREATININE (test code = 2214) 0.58 MG/DL eGFR (2020 CKD-EPI) (test code = 30365) 130 ML/MIN/1.73 CALC BUN/CREAT (test code = 2235) 16 RATIO SODIUM (test code = 2231) 143 MEQ/L POTASSIUM (test code = 2228) 4.2 MEQ/L CHLORIDE (test code = 2215) 106 MEQ/L CARBON DIOXIDE (test code = 2206) 23 MEQ/L CALCIUM (test code = 2209) 9.5 MG/DL PROTEIN, TOTAL (test code = 2229) 7.6 G/DL ALBUMIN (test code = 2201) 4.6 G/DL CALC GLOBULIN (test code = 2240) 3.0 G/DL CALC A/G RATIO (test code = 2234) 1.5 RATIO BILIRUBIN, TOTAL (test code = 2207) 0.7 MG/DL ALKALINE PHOSPHATASE (test code = 2204) 74 U/L AST (test code = 2218) 14 U/L ALT (test code = 2219) 17 U/L Toñito Jon CaneadeaCOMPREHENSIVE METABOLIC [id number] 00:00:00* Test Item Value Reference Range Interpretation Comme nts GLUCOSE (test code = 2217) 94 MG/DL BUN (test code = 2208) 9 MG/DL CREATININE (test code = 2214) 0.58 MG/DL eGFR (2020 CKD-EPI) (test code = 92420) 130 ML/MIN/1.73 CALC BUN/CREAT (test code = 2235) 16 RATIO SODIUM (test code = 2231) 143 MEQ/L POTASSIUM (test code = 2228) 4.2 MEQ/L CHLORIDE (test code = 2215) 106 MEQ/L CARBON DIOXIDE (test code = 2206) 23 MEQ/L CALCIUM (test code = 2209) 9.5 MG/DL PROTEIN, TOTAL (test code = 2229) 7.6 G/DL ALBUMIN (test code = 2201) 4.6 G/DL CALC GLOBULIN (test code = 2240) 3.0 G/DL CALC A/G RATIO (test code = 2234) 1.5 RATIO BILIRUBIN, TOTAL (test code = 2207) 0.7 MG/DL ALKALINE PHOSPHATASE (test code = 2204) 74 U/L AST (test code = 2218) 14 U/L ALT (test code = 2219) 17 U/L Toñito Jon [facility] [id number] 00:00:00* Test Item Value Reference Range Interpretation Comme nts GLUCOSE (test code = 2217) 94 MG/DL BUN (test code = 2208) 9 MG/DL CREATININE (test code = 2214) 0.58 MG/DL eGFR (2020 CKD-EPI) (test code = 63859) 130 ML/MIN/1.73 CALC BUN/CREAT (test code = 2235) 16 RATIO SODIUM (test code = 2231) 143 MEQ/L POTASSIUM (test code = 2228) 4.2 MEQ/L CHLORIDE (test code = 2215) 106 MEQ/L CARBON DIOXIDE (test code = 2206) 23 MEQ/L CALCIUM (test code = 2209) 9.5 MG/DL PROTEIN, TOTAL (test code = 2229) 7.6 G/DL ALBUMIN (test code = 2201) 4.6 G/DL CALC GLOBULIN (test code = 2240) 3.0 G/DL CALC A/G RATIO (test code = 2234) 1.5 RATIO BILIRUBIN, TOTAL (test code = 2207) 0.7 MG/DL ALKALINE PHOSPHATASE (test code = 2204) 74 U/L AST (test code = 2218) 14 U/L ALT (test code = 2219) 17 U/L Toñito F AustinCT/NG, NAAT, [id number] 00:06:35* Test Item Value Reference Range Interpretation Comme nts CHLAMYDIA, NAAT, URINE (test code = 10431) NEGATIVE NEGATIVE Testing is perfo rmed with Affresol OLIMPIA 6800/8800 systems usingreal-time polymerase chain reaction (PCR) method. Testing is performed with Carline OLIMPIA 6800/8800 systems usingreal-time polymerase chain reaction (PCR) method. A negative result does not exclude low level infection, specimensampling error, or collection error. GONORRHEA, NAAT, URINE (test code = 92544) NEGATIVE NEGATIVE Testing is perfo rmed with Carline OLIMPIA 6800/8800 systems usingreal-time polymerase chain reaction (PCR) method. Testing is performed with Carline OLIMPIA 6800/8800 systems usingreal-time polymerase chain reaction (PCR) method. A negative result does not exclude low level infection, specimensampling error, or collection error. CT/NG, TMA, [id number] 00:00:00* Test Item Value Reference Range Interpretation Comme nts CHLAMYDIA, NAAT, URINE (test code = 13264) NEGATIVE GONORRHEA, NAAT, URINE (test code = 74125) NEGATIVE Toñito F AustinCT/NG, TMA, [id number] 00:00:00* Test Item Value Reference Range Interpretation Comme nts CHLAMYDIA, NAAT, URINE (test code = 43069) NEGATIVE GONORRHEA, NAAT, URINE (test code = 37173) NEGATIVE Toñito F AustinCT/NG, TMA, [id number] 00:00:00* Test Item Value Reference Range Interpretation Comme nts CHLAMYDIA, NAAT, URINE (test code = 80881) NEGATIVE GONORRHEA, NAAT, URINE (test code = 93494) NEGATIVE Toñito KeeneCT/NG, TMA, [id number] 00:00:00* Test Item Value Reference Range Interpretation Comme nts CHLAMYDIA, NAAT, URINE (test code = 94908) NEGATIVE GONORRHEA, NAAT, URINE (test code = 57712) NEGATIVE Toñito Wynn SIMPLEX AB, [id number] 12:00:15* Test Item Value Reference Range Interpretation Comme nts HERPES SIMPLEX AB, IgM (test code = 53711) 1.28 INDEX SEE BELOW H IMPORTANT NOTE: HSV IgM ASSAYS ARE NOT TYPE-SPECIFIC. THE BIOLOGICALIgM RESPONSE WITH PRIMARY INFECTIONS IS VARIABLE AND MAY BEUNDETECTABLE; WITH RECURRENT INFECTIONS IgM MAY OR MAY NOT BEDETECTED. FALSE POSITIVE RESULTS UNRELATED TO HSV INFECTION CAN OCCURWITH HSV IgM ASSAYS. ALL RESULTS SHOULD BE REVIEWED IN CLINICALCONTEXT, AND COMPARISON TO ACUTE OR CONVALESCENT TYPE-SPECIFIC [id number] HSV2 IgG ASSAYS SHOULD BE CONSIDERED. INTERPRETATION UNITS RANGE ----- ----- NEGATIVE INDEX <=0.89 EQUIVOCAL INDEX 0.90-1.09 POSITIVE INDEX >=1.10 HERPES SIMPLEX [id number] 00:00:00* Test Item Value Reference Range Interpretation Comme nts HERPES SIMPLEX AB, IgM (test code = 65694) 1.28 INDEX Toñito PetersonPES SIMPLEX [id number] 00:00:00* Test Item Value Reference Range Interpretation Comme nts HERPES SIMPLEX AB, IgM (test code = 27554) 1.28 INDEX Toñito KeeneHERPES SIMPLEX [id number] 00:00:00* Test Item Value Reference Range Interpretation Comme nts HERPES SIMPLEX AB, IgM (test code = 66670) 1.28 INDEX Toñito PetersonPES SIMPLEX [id number] 00:00:00* Test Item Value Reference Range Interpretation Comme nts HERPES SIMPLEX AB, IgM (test code = 43176) 1.28 INDEX Toñito ZuñigaLTTAYLOR, [id number] 16:44:36SPECIMEN NUMBER: [id number] CULTURE, URINE SPECIMEN NUMBER: [id number] SPECIMEN COMMENT: URINE SOURCE: URINE REPORT STATUS: FINAL FINAL REPORT: 09/26/2022 10-50,000 CFU/ML UROGENITAL JUN PRESENT NO COMMON PATHOGENSCULTURE, [id number] 00:00:00* Test Item Value Reference Range Interpretation Comme nts CULTURE, URINE (test code = 30236) SPECIMEN NUMBER: [id number] Toñito Jon AustinCULTURE, [id number] 00:00:00* Test Item Value Reference Range Interpretation Comme nts CULTURE, URINE (test code = 23682) SPECIMEN NUMBER: [id number] Toñito KeeneCULTURE, [id number] 00:00:00* Test Item Value Reference Range Interpretation Comme nts CULTURE, URINE (test code = 89668) SPECIMEN NUMBER: [id number] Toñito KeeneCULTURE, [id number] 00:00:00* Test Item Value Reference Range Interpretation Comme nts CULTURE, URINE (test code = 89564) SPECIMEN NUMBER: [id number] Toñito [id number] 07:06:36* Test Item Value Reference Range Interpretation Comme will PROLACTIN (test code = 2800) 24.4 NG/ML 5.0-37.0 NOTE: Methodolog y is Carline Olimpia Electrochemiluminescence Immunoassay (ECLIA). Values obtained with different assays/manufacturers cannot be used interchangeably. Results should not be used as sole basis to establish the presence or absence of malignancy. [id number] 07:06:36* Test Item Value Reference Range Interpretation Comme will FERRITIN (test code = 2075) 4 NG/ML 13-200 L FSH + LH [id number] 07:06:36* Test Item Value Reference Range Interpretation Comme nts FOLLICLE STIM HORMONE (test code = 2700) 7.5 IU/L SEE BELOW EXPEC JANESSA VALUES FOR FSH FOR FEMALES >17 YEARS FOLLICULAR 3.5-12.5 IU/L MID-CYCLE PEAK 4.7-21.5 IU/L LUTEAL PHASE 1.7-7.7 IU/L POSTMENOPAUSAL 25.8-134.8 IU/L LUTEINIZING HORMONE (test code = 2776) 5.2 IU/L SEE BELOW EXPEC JANESSA VALUES FOR LH FOR FEMALES >17 YEARS MALES FEMALES >=18 YEARS 1.8-8.6 IU/L FOLLICULAR 2.4-12.6 IU/L MID-CYCLE PEAK 14.0-95.6 IU/L LUTEAL PHASE 1.0-11.4 IU/L POSTMENOPAUSAL 7.7-58.5 IU/L TSH, THIRD [id number] 07:06:36* Test Item Value Reference Range [facility]ation [facility] (test code = 2821) 1.320 UIU/ML 0.400-4.100 DHEA [id number] 07:00:38* Test Item Value Reference Range [facility]ation [facility] DHEA SULFATE (test code = 4225) 95 UG/DL 148-407 L [id number] 07:00:38* Test Item Value Reference Range Interpretation [facility] TESTOSTERONE (test code = 2830) <12 NG/DL See_Comment NOTE: TOTAL TESTOSTERONE ASSAY SENSITIVITY IS 12 NG/DL. TO DETERMINE NORMAL VS. SUBNORMAL TESTOSTERONE IN CHILDREN AND WOMEN, CONSIDER TESTING WITH ULTRASENSITIVE TESTOSTERONE. [Automated message] The system which generated this result transmitted reference range: <=55. The reference range was not used to interpret this result as normal/abnormal. HERPES SIMPLEX 1/2 AB, IgG [id number] 06:06:48* Test Item Value Reference Range Interpretation [facility] HERPES SIMPLEX 1 AB, IgG (test code = 50747) 6.410 INDEX SEE BELOW H INTERPRETATION U NITS RANGE ----- ----- NON-REACTIVE INDEX <1.000 REACTIVE INDEX >=1.000 HERPES SIMPLEX 2 AB, IgG (test code = 01544) 0.066 INDEX SEE BELOW INTERPRETATION U NITS RANGE ----- ----- NON-REACTIVE INDEX <1.000 REACTIVE INDEX >=1.000 HIV 1/2 4TH GEN, RFLX [id number] 06:06:48* Test Item Value Reference Range [facility] 1/2 4TH GEN, RFLX CONF ( test code = 3514) NON-REACTIVE NON-REACTIVE HEPATITIS PANEL, [id number] 06:06:48* Test Item Value Reference Range Interpretation Comme nts HEPATITIS A IgM (test code = 38500) NON-REACTIVE NON-REACTIVE HEPATITIS B CORE IgM (test code = 4644) NON-REACTIVE NON-REACTIVE HEPATITIS B SURF AG (test code = 2739) NON-REACTIVE NON-REACTIVE HEPATITIS C ANTIBODY (test code = 4675) NON-REACTIVE NON-REACTIVE INTERPRETATION HEPATITIS A: (test code = 2552) (NOTE) Hepatitis A serology shows no evidence of acute hepatitis A. INTERPRETATION HEPATITIS B: (test code = 91398) (NOTE) Hepatitis B serology shows no evidence of acute hepatitis B andno indication of exposure to hepatitis B virus in the previous flore[place] eight months. INTERPRETATION HEPATITIS C: (test code = 89827) (NOTE) Hepatitis C serology shows no evidence of exposure to hepatitisC virus at this time. It can take up to 12 months after exposure tothe hepatitis C virus for antibodies to become detectable in the blood in certain patients. [id number] 05:38:25* Test Item Value Reference Range Interpretation Comme nts RPR RESULT (test code = 3501) NON-REACTIVE NON-REACTIVE RPR TITER (test code = 3500) NOT INDIC. TITER NOT INDIC. CBC W/AUTO DIFF WITH [id number] 04:19:59* Test Item Value Reference Range Interpretation Comme nts WBC (test code = 1001) 5.1 K/UL 3.5-11.0 RBC (test code = 1002) 4.39 M/UL 3.80-5.40 HEMOGLOBIN (test code = 1003) 12.1 G/DL 11.5-15.5 HEMATOCRIT (test code = 1004) 37.6 % 34.0-45.0 MCV (test code = 1005) 85.6 fL 80.0-99.0 MCH (test code = 1006) 27.6 PG 25.0-33.0 MCHC (test code = 1007) 32.2 G/DL 31.0-36.0 RDW (test code = 1038) 14.9 % 11.5-15.0 NEUTROPHILS (test code = 1008) 53.9 % LYMPHOCYTES (test code = 1010) 30.5 % MONOCYTES (test code = 1011) 9.7 % EOSINOPHILS (test code = 1012) 4.5 % BASOPHILS (test code = 1013) 1.2 % IMMATURE GRANULOCYTES (test code = 1036) 0.2 % NUCLEATED RBCS (test code = 1065) 0.0 /100 WBC'S See_Comment [Automated messa ge] The system which generated this result transmitted reference range: 0.0. The reference range was not used to interpret this result as normal/abnormal. PLATELET COUNT (test code = 1015) 281 K/UL 130-400 ABSOLUTE NEUTROPHILS (test code = 1066) 2.77 K/UL 1.50-7.50 ABSOLUTE LYMPHOCYTES (test code = 1067) 1.57 K/UL 1.00-4.00 ABSOLUTE MONOCYTES (test code = 1068) 0.50 K/UL 0.20-1.00 ABSOLUTE EOSINOPHILS (test code = 1040) 0.23 K/UL 0.00-0.50 ABSOLUTE BASOPHILS (test code = 1069) 0.06 K/UL 0.00-0.20 ABS IMMATURE GRANULOCYTES (test code = 1020) 0.01 K/UL 0.00-0.10 ABS NUCLEATED RBCS (test code = 71294) 0.00 K/UL 0.00-0.11 RETICULOCYTE WITH [id number] 04:19:59* Test Item Value Reference Range Interpretation Comme nts RETICULOCYTE COUNT (test code = 1018) 1.63 % 0.80-2.40 ABSOLUTE RETICULOCYTE (test code = 82012) 71.6 K/UL 32.0-105.0 [facility] has important pathology staff changes effective 09/08/2022. New pathology staff will provide uninterrupted, excellent patient care and clinical consultation. See URL: [email or web address]. UNLESS OTHERWISE INDICATED, ALL TESTING PERFORMED AT [facility] [address] [facility] [place] [address] CLINICAL DOCUMENTATION CLERK: TULIO WILLIAM M.D. CLIA NUMBER [id number] [facility] [place]. [id number] 00:00:00* Test Item Value Reference Range Interpretation Comme nts RPR RESULT (test code = 3501) NON-REACTIVE RPR TITER (test code = 3500) NOT INDIC. TITER Toñito KeeneACUTE HEPATITIS [id number] 00:00:00* Test Item Value Reference Range Interpretation Comme nts HEPATITIS A IgM (test code = 82713) NON-REACTIVE HEPATITIS B CORE IgM (test c ode = 4647) NON-REACTIVE HEPATITIS B SURF AG (test co de = 2569) NON-REACTIVE HEPATITIS C ANTIBODY (test c ode = 4620) NON-REACTIVE INTERPRETATION HEPATITIS A: (test code = 2552) (NOTE) INTERPRETATION HEPATITIS B: (test code = 73829) (NOTE) INTERPRETATION HEPATITIS C: (test code = 98124) (NOTE) Toñito KeeneFSH + LH [id number] 00:00:00* Test Item Value Reference Range Interpretation Comme nts FOLLICLE STIM HORMONE (test code = 2700) 7.5 IU/L LUTEINIZING HORMONE (test co de = 2776) 5.2 IU/L Toñito KeeneTSH, THIRD [id number] 00:00:00* Test Item Value Reference Range Interpretation Comme nts TSH, THIRD GENERATION (test code = 2821) 1.320 UIU/ML Toñito [id number] 00:00:00* Test Item Value Reference Range Interpretation Comme nts TESTOSTERONE (test code = 2830) <12 NG/DL Toñito [id number] 00:00:00* Test Item Value Reference Range Interpretation Comme nts PROLACTIN (test code = 2800) 24.4 NG/ML Toñito KeeneDHEA [id number] 00:00:00* Test Item Value Reference Range Interpretation Comme nts DHEA SULFATE (test code = 4225) 95 UG/DL Toñito KeeneCBC W/AUTO [id number] 00:00:00* Test Item Value Reference Range Interpretation Comme nts WBC (test code = 1001) 5.1 K/UL RBC (test code = 1002) 4.39 M/UL HEMOGLOBIN (test code = 1003) 12.1 G/DL HEMATOCRIT (test code = 1004) 37.6 % MCV (test code = 1005) 85.6 fL MCH (test code = 1006) 27.6 PG MCHC (test code = 1007) 32.2 G/DL RDW (test code = 1038) 14.9 % NEUTROPHILS (test code = 1008) 53.9 % LYMPHOCYTES (test code = 1010) 30.5 % MONOCYTES (test code = 1011) 9.7 % EOSINOPHILS (test code = 1012) 4.5 % BASOPHILS (test code = 1013) 1.2 % IMMATURE GRANULOCYTES (test code = 1036) 0.2 % NUCLEATED RBCS (test code = 1065) 0.0 /100WBC'S PLATELET COUNT (test code = 1015) 281 K/UL ABSOLUTE NEUTROPHILS (test c ode = 1066) 2.77 K/UL ABSOLUTE LYMPHOCYTES (test c ode = 1067) 1.57 K/UL ABSOLUTE MONOCYTES (test cod e = 1068) 0.50 K/UL ABSOLUTE EOSINOPHILS (test c ode = 1040) 0.23 K/UL ABSOLUTE BASOPHILS (test cod e = 1069) 0.06 K/UL ABS IMMATURE GRANULOCYTES (t est code = 1020) 0.01 K/UL ABS NUCLEATED RBCS (test cod e = 26112) 0.00 K/UL Toñito [id number] 00:00:00* Test Item Value Reference Range Interpretation Comme nts FERRITIN (test code = 2075) 4 NG/ML Toñito KeeneHERPES SIMPLEX 1/2 [id number] 00:00:00* Test Item Value Reference Range Interpretation Comme nts HERPES SIMPLEX 1 AB, IgG (te st code = 91074) 6.410 INDEX HERPES SIMPLEX 2 AB, IgG (te st code = 62705) 0.066 INDEX Toñito KeeneRETICULOCYTE WITH [id number] 00:00:00* Test Item Value Reference Range Interpretation Comme nts RETICULOCYTE COUNT (test cod e = 1018) 1.63 % ABSOLUTE RETICULOCYTE (test code = 17778) 71.6 K/UL Toñito KeeneHIV 1/2 4TH GEN, RFLX [id number] 00:00:00* Test Item Value Reference Range Interpretation Comme nts HIV 1/2 4TH GEN, RFLX CONF ( test code = 3514) NON-REACTIVE Toñito [id number] 00:00:00* Test Item Value Reference Range Interpretation Comme nts RPR RESULT (test code = 3501) NON-REACTIVE RPR TITER (test code = 3500) NOT INDIC. TITER Toñito KeeneACUTE HEPATITIS [id number] 00:00:00* Test Item Value Reference Range Interpretation Comme nts HEPATITIS A IgM (test code = 16634) NON-REACTIVE HEPATITIS B CORE IgM (test c ode = 4614) NON-REACTIVE HEPATITIS B SURF AG (test co de = 2739) NON-REACTIVE HEPATITIS C ANTIBODY (test c ode = 4656) NON-REACTIVE INTERPRETATION HEPATITIS A: (test code = 2552) (NOTE) INTERPRETATION HEPATITIS B: (test code = 94820) (NOTE) INTERPRETATION HEPATITIS C: (test code = 34445) (NOTE) Toñito KeeneFSH + LH [id number] 00:00:00* Test Item Value Reference Range Interpretation Comme nts FOLLICLE STIM HORMONE (test code = 2700) 7.5 IU/L LUTEINIZING HORMONE (test co de = 2776) 5.2 IU/L Toñito KeeneTSH, THIRD [id number] 00:00:00* Test Item Value Reference Range Interpretation Comme nts TSH, THIRD GENERATION (test code = 2821) 1.320 UIU/ML Toñito [id number] 00:00:00* Test Item Value Reference Range Interpretation Comme nts TESTOSTERONE (test code = 2830) <12 NG/DL Toñito [id number] 00:00:00* Test Item Value Reference Range Interpretation Comme nts PROLACTIN (test code = 2800) 24.4 NG/ML Toñito KeeneDHEA [id number] 00:00:00* Test Item Value Reference Range Interpretation Comme nts DHEA SULFATE (test code = 4225) 95 UG/DL Toñito KeeneCBC W/AUTO [id number] 00:00:00* Test Item Value Reference Range Interpretation Comme nts WBC (test code = 1001) 5.1 K/UL RBC (test code = 1002) 4.39 M/UL HEMOGLOBIN (test code = 1003) 12.1 G/DL HEMATOCRIT (test code = 1004) 37.6 % MCV (test code = 1005) 85.6 fL MCH (test code = 1006) 27.6 PG MCHC (test code = 1007) 32.2 G/DL RDW (test code = 1038) 14.9 % NEUTROPHILS (test code = 1008) 53.9 % LYMPHOCYTES (test code = 1010) 30.5 % MONOCYTES (test code = 1011) 9.7 % EOSINOPHILS (test code = 1012) 4.5 % BASOPHILS (test code = 1013) 1.2 % IMMATURE GRANULOCYTES (test code = 1036) 0.2 % NUCLEATED RBCS (test code = 1065) 0.0 /100WBC'S PLATELET COUNT (test code = 1015) 281 K/UL ABSOLUTE NEUTROPHILS (test c ode = 1066) 2.77 K/UL ABSOLUTE LYMPHOCYTES (test c ode = 1067) 1.57 K/UL ABSOLUTE MONOCYTES (test cod e = 1068) 0.50 K/UL ABSOLUTE EOSINOPHILS (test c ode = 1040) 0.23 K/UL ABSOLUTE BASOPHILS (test cod e = 1069) 0.06 K/UL ABS IMMATURE GRANULOCYTES (t est code = 1020) 0.01 K/UL ABS NUCLEATED RBCS (test cod e = 77823) 0.00 K/UL Toñito [id number] 00:00:00* Test Item Value Reference Range Interpretation Comme nts FERRITIN (test code = 2075) 4 NG/ML Toñito KeeneHERPES SIMPLEX 1/2 [id number] 00:00:00* Test Item Value Reference Range Interpretation Comme nts HERPES SIMPLEX 1 AB, IgG (te st code = 85832) 6.410 INDEX HERPES SIMPLEX 2 AB, IgG (te st code = 04310) 0.066 INDEX Toñito KeeneRETICULOCYTE WITH [id number] 00:00:00* Test Item Value Reference Range Interpretation Comme nts RETICULOCYTE COUNT (test cod e = 1018) 1.63 % ABSOLUTE RETICULOCYTE (test code = 88026) 71.6 K/UL Toñito KeeneHIV 1/2 4TH GEN, RFLX [id number] 00:00:00* Test Item Value Reference Range Interpretation Comme nts HIV 1/2 4TH GEN, RFLX CONF ( test code = 3514) NON-REACTIVE Toñito [id number] 00:00:00* Test Item Value Reference Range Interpretation Comme nts RPR RESULT (test code = 3501) NON-REACTIVE RPR TITER (test code = 3500) NOT INDIC. TITER Toñito KeeneACUTE HEPATITIS [id number] 00:00:00* Test Item Value Reference Range Interpretation Comme nts HEPATITIS A IgM (test code = 62737) NON-REACTIVE HEPATITIS B CORE IgM (test c ode = 4644) NON-REACTIVE HEPATITIS B SURF AG (test co de = 2739) NON-REACTIVE HEPATITIS C ANTIBODY (test c ode = 4673) NON-REACTIVE INTERPRETATION HEPATITIS A: (test code = 2552) (NOTE) INTERPRETATION HEPATITIS B: (test code = 38504) (NOTE) INTERPRETATION HEPATITIS C: (test code = 29497) (NOTE) Toñito KeeneFSH + LH [id number] 00:00:00* Test Item Value Reference Range Interpretation Comme nts FOLLICLE STIM HORMONE (test code = 2700) 7.5 IU/L LUTEINIZING HORMONE (test co de = 2776) 5.2 IU/L Toñito KeeneTSH, THIRD [id number] 00:00:00* Test Item Value Reference Range Interpretation Comme nts TSH, THIRD GENERATION (test code = 2821) 1.320 UIU/ML Toñito [id number] 00:00:00* Test Item Value Reference Range Interpretation Comme nts TESTOSTERONE (test code = 2830) <12 NG/DL Toñito [id number] 00:00:00* Test Item Value Reference Range Interpretation Comme nts PROLACTIN (test code = 2800) 24.4 NG/ML Toñito KeeneDHEA [id number] 00:00:00* Test Item Value Reference Range Interpretation Comme nts DHEA SULFATE (test code = 4225) 95 UG/DL Toñito KeeneCBC W/AUTO [id number] 00:00:00* Test Item Value Reference Range Interpretation Comme nts WBC (test code = 1001) 5.1 K/UL RBC (test code = 1002) 4.39 M/UL HEMOGLOBIN (test code = 1003) 12.1 G/DL HEMATOCRIT (test code = 1004) 37.6 % MCV (test code = 1005) 85.6 fL MCH (test code = 1006) 27.6 PG MCHC (test code = 1007) 32.2 G/DL RDW (test code = 1038) 14.9 % NEUTROPHILS (test code = 1008) 53.9 % LYMPHOCYTES (test code = 1010) 30.5 % MONOCYTES (test code = 1011) 9.7 % EOSINOPHILS (test code = 1012) 4.5 % BASOPHILS (test code = 1013) 1.2 % IMMATURE GRANULOCYTES (test code = 1036) 0.2 % NUCLEATED RBCS (test code = 1065) 0.0 /100WBC'S PLATELET COUNT (test code = 1015) 281 K/UL ABSOLUTE NEUTROPHILS (test c ode = 1066) 2.77 K/UL ABSOLUTE LYMPHOCYTES (test c ode = 1067) 1.57 K/UL ABSOLUTE MONOCYTES (test cod e = 1068) 0.50 K/UL ABSOLUTE EOSINOPHILS (test c ode = 1040) 0.23 K/UL ABSOLUTE BASOPHILS (test cod e = 1069) 0.06 K/UL ABS IMMATURE GRANULOCYTES (t est code = 1020) 0.01 K/UL ABS NUCLEATED RBCS (test cod e = 75355) 0.00 K/UL Toñito [id number] 00:00:00* Test Item Value Reference Range Interpretation Comme nts FERRITIN (test code = 2075) 4 NG/ML Toñito KeeneHERPES SIMPLEX 1/2 [id number] 00:00:00* Test Item Value Reference Range Interpretation Comme nts HERPES SIMPLEX 1 AB, IgG (te st code = 74052) 6.410 INDEX HERPES SIMPLEX 2 AB, IgG (te st code = 65457) 0.066 INDEX Toñito KeeneRETICULOCYTE WITH [id number] 00:00:00* Test Item Value Reference Range Interpretation Comme nts RETICULOCYTE COUNT (test cod e = 1018) 1.63 % ABSOLUTE RETICULOCYTE (test code = 68029) 71.6 K/UL Toñito KeeneHIV 1/2 4TH GEN, RFLX [id number] 00:00:00* Test Item Value Reference Range Interpretation Comme nts HIV 1/2 4TH GEN, RFLX CONF ( test code = 3514) NON-REACTIVE Toñito [id number] 00:00:00* Test Item Value Reference Range Interpretation Comme nts RPR RESULT (test code = 3501) NON-REACTIVE RPR TITER (test code = 3500) NOT INDIC. TITER Toñito KeeneACUTE HEPATITIS [id number] 00:00:00* Test Item Value Reference Range Interpretation Comme nts HEPATITIS A IgM (test code = 51801) NON-REACTIVE HEPATITIS B CORE IgM (test c ode = 4644) NON-REACTIVE HEPATITIS B SURF AG (test co de = 2739) NON-REACTIVE HEPATITIS C ANTIBODY (test c ode = 4630) NON-REACTIVE INTERPRETATION HEPATITIS A: (test code = 2552) (NOTE) INTERPRETATION HEPATITIS B: (test code = 00784) (NOTE) INTERPRETATION HEPATITIS C: (test code = 04767) (NOTE) Toñito KeeneFSH + LH [id number] 00:00:00* Test Item Value Reference Range Interpretation Comme nts FOLLICLE STIM HORMONE (test code = 2700) 7.5 IU/L LUTEINIZING HORMONE (test co de = 2776) 5.2 IU/L Toñito KeeneTSH, THIRD [id number] 00:00:00* Test Item Value Reference Range Interpretation Comme nts TSH, THIRD GENERATION (test code = 2821) 1.320 UIU/ML Toñito [id number] 00:00:00* Test Item Value Reference Range Interpretation Comme nts TESTOSTERONE (test code = 2830) <12 NG/DL Toñito [id number] 00:00:00* Test Item Value Reference Range Interpretation Comme nts PROLACTIN (test code = 2800) 24.4 NG/ML Toñito KeeneDHEA [id number] 00:00:00* Test Item Value Reference Range Interpretation Comme nts DHEA SULFATE (test code = 4225) 95 UG/DL Toñito KeeneCBC W/AUTO [id number] 00:00:00* Test Item Value Reference Range Interpretation Comme nts WBC (test code = 1001) 5.1 K/UL RBC (test code = 1002) 4.39 M/UL HEMOGLOBIN (test code = 1003) 12.1 G/DL HEMATOCRIT (test code = 1004) 37.6 % MCV (test code = 1005) 85.6 fL MCH (test code = 1006) 27.6 PG MCHC (test code = 1007) 32.2 G/DL RDW (test code = 1038) 14.9 % NEUTROPHILS (test code = 1008) 53.9 % LYMPHOCYTES (test code = 1010) 30.5 % MONOCYTES (test code = 1011) 9.7 % EOSINOPHILS (test code = 1012) 4.5 % BASOPHILS (test code = 1013) 1.2 % IMMATURE GRANULOCYTES (test code = 1036) 0.2 % NUCLEATED RBCS (test code = 1065) 0.0 /100WBC'S PLATELET COUNT (test code = 1015) 281 K/UL ABSOLUTE NEUTROPHILS (test c ode = 1066) 2.77 K/UL ABSOLUTE LYMPHOCYTES (test c ode = 1067) 1.57 K/UL ABSOLUTE MONOCYTES (test cod e = 1068) 0.50 K/UL ABSOLUTE EOSINOPHILS (test c ode = 1040) 0.23 K/UL ABSOLUTE BASOPHILS (test cod e = 1069) 0.06 K/UL ABS IMMATURE GRANULOCYTES (t est code = 1020) 0.01 K/UL ABS NUCLEATED RBCS (test cod e = 80874) 0.00 K/UL Toñito KeeneNafukuQDBTOBIK1060-21-74 00:00:00* Test Item Value Reference Range Interpretation Comme nts FERRITIN (test code = 2075) 4 NG/ML Toñito KeeneHERPES SIMPLEX 1/2 [id number] 00:00:00* Test Item Value Reference Range Interpretation Comme nts HERPES SIMPLEX 1 AB, IgG (te st code = 44953) 6.410 INDEX HERPES SIMPLEX 2 AB, IgG (te st code = 32667) 0.066 INDEX Toñito KeeneRETICULOCYTE WITH [id number] 00:00:00* Test Item Value Reference Range Interpretation Comme nts RETICULOCYTE COUNT (test cod e = 1018) 1.63 % ABSOLUTE RETICULOCYTE (test code = 05481) 71.6 K/UL Toñito Jon AustinHIV 1/2 4TH GEN, RFLX [id number] 00:00:00* Test Item Value Reference Range Interpretation Comme nts HIV 1/2 4TH GEN, RFLX CONF ( test code = 3514) NON-REACTIVE Toñito KeeneCOMP. METABOLIC PANEL (11363)[id number] 01:42:11* Test Item Value Reference Range Interpretation Comme nts NA (test code = 9698086090) 141 mmol/L 135-145 K (test code = 9070469363) 4.3 mmol/L 3.5-5.0 CL (test code = 4763249911) 105 mmol/L 98-108 CO2 TOTAL (test code = 1337847223) 26 mmol/L 23-31 AGAP (test code = 0863292535) 2-16 BUN (test code = 7308161260) 8 mg/dL 7-23 GLUCOSE (test code = 3003371266) 103 mg/dL 70-110 CREATININE (test code = 1339887292) 0.54 mg/dL 0.50-1.04 TOTAL BILI (test code = 6338470512) 0.9 mg/dL 0.1-1.1 CALCIUM (test code = 3591413953) 9.5 mg/dL 8.6-10.6 T PROTEIN (test code = 4784956853) 7.7 g/dL 6.3-8.2 ALBUMIN (test code = 8495043882) 4.8 g/dL 3.5-5.0 ALK PHOS (test code = 4339964410) 79 U/L 34-122 ALTv (test code = 1742-6) 18 U/L 5-35 AST(SGOT) (test code = 7179244549) 21 U/L 13-40 eGFR (test code = 8939821539) mL/min/1.73m2 CHRISTINA (test code = CHRISTINA) Association of Glomerular Filtration Rate (GFR) and Staging of Kidney Disease* + + +- +| GFR (mL/min/1.73 m2) ?| With Kidney Damage ?| ?Without Kidney Damage+ ------+ ----+ ------+| ?>90 ?| ?Stage one ?| ? Normal ?+ -+ + -+| ?60-89 ?| ?Stage two ?| ? Decreased GFR ? + + +- +| ?30-59 ?| ?Stage three ?| ? Stage three ? + + +- +| ?15-29 ?| ?Stage four ? | ? Stage four ?+ -+ + -+| ?<15 (or dialysis) ? ?| ?Stage five ? | ? Stage five ?+ -+ + -+ *Each stage assumes the associated GFR level has been in effect for at least three months. ?Stages 1 to 5, with or without kidney disease, indicate chronic kidney disease. Notes: Determination of stages one and two (with eGFR >59mL/min/1.73 m2) requires estimation of kidney damage for at least three months as defined by structural or functional abnormalities of the kidney, manifested by either:Pathological abnormalities or Markers of kidney damage (including abnormalities in the composition of the blood or urine or abnormalities in imaging tests). [facility] WITH [id number] 01:27:50* Test Item Value Reference Range Interpretation Comme nts WBC (test code = 6690-2) See_Comment [Automated Emitlessa ge] The system which generated this result transmitted reference range: 4.30 - 11.10 10*3/?L. The reference range was not used to interpret this result as normal/abnormal. RBC (test code = 789-8) See_Comment [Automated [employer]a ge] The system which generated this result transmitted reference range: 3.93 - 5.25 10*6/?L. The reference range was not used to interpret this result as normal/abnormal. HGB (test code = 718-7) 12.4 g/dL 11.6-15.0 HCT (test code = 4544-3) 39.2 % 35.7-45.2 MCV (test code = 787-2) 86.3 fL 80.6-95.5 MCH (test code = 785-6) 27.3 pg 25.9-32.8 MCHC (test code = 786-4) 31.6 g/dL 31.6-35.1 RDW-SD (test code = 68134-2) 45.0 fL 39.0-49.9 RDW-CV (test code = 788-0) 14.2 % 12.0-15.5 PLT (test code = 777-3) See_Comment [Automated Emitlessa ge] The system which generated this result transmitted reference range: 166 - 358 10*3/?L. The reference range was not used to interpret this result as normal/abnormal. MPV (test code = 82522-0) 10.8 fL 9.5-12.9 NRBC/100 WBC (test code = 6228007370) See_Comment [Automated [employer] ssage] The system which generated this result transmitted reference range: 0.0 - 10.0 /100 WBCs. The reference range was not used to interpret this result as normal/abnormal. NRBC x10^3 (test code = 6141189785) See_Comment [Automated me ssage] The system which generated this result transmitted reference range: 10*3/?L. The reference range was not used to interpret this result as normal/abnormal. GRAN MAT (NEUT) % (test code = 770-8) 76.4 % IMM GRAN % (test code = 1896809144) 0.20 % LYMPH % (test code = 736-9) 15.5 % MONO % (test code = 5905-5) 5.8 % EOS % (test code = 713-8) 1.7 % BASO % (test code = 706-2) 0.4 % GRAN MAT x10^3(ANC) (test code = 2082128118) 7.09 10*3/uL 1.88-7.09 IMM GRAN x10^3 (test code = 4858229823) 0.00-0.06 LYMPH x10^3 (test code = 731-0) 1.44 10*3/uL 1.32-3.29 MONO x10^3 (test code = 742-7) 0.54 10*3/uL 0.33-0.92 EOS x10^3 (test code = 711-2) 0.16 10*3/uL 0.03-0.39 BASO x10^3 (test code = 704-7) 0.04 10*3/uL 0.01-0.07 [id number] Test Item Value Reference Range Interpretation Comme nts POCT PREG (test code = 1605) negative Lab Interpretation (test cod e = 50022-6) [facility] (HIGH RISK) 2020-02-20 00:00:00* Test Item Value Reference Range Interpretation Comme nts SARS-CoV-2 INTERPRETATION (t est code = 41468) POSITIVE SOURCE (test code = 79874) NOT SPECIFIED Toñito KeeneSARS-CoV-2 (COVID-19) by RT-PCR (HIGH RISK)2020-02-20 00:00:00* Test Item Value Reference Range Interpretation Comme nts SARS-CoV-2 INTERPRETATION (t est code = 02953) POSITIVE SOURCE (test code = 88306) NOT SPECIFIED Toñ[facility] Jon ZlmnfgJNPP-YbR-1 (COVID-19) by RT-PCR (HIGH RISK)2020-02-20 00:00:00* Test Item Value Reference Range Interpretation Comme nts SARS-CoV-2 INTERPRETATION (t est code = 27746) POSITIVE SOURCE (test code = 07767) NOT SPECIFIED Toñ[facility] Jon LgnjekBQUA-EdH-7 (COVID-19) by RT-PCR (HIGH RISK)2020-02-20 00:00:00* Test Item Value Reference Range Interpretation Comme nts SARS-CoV-2 INTERPRETATION (t est code = 05980) POSITIVE SOURCE (test code = 60626) NOT SPECIFIED Toñito Keene"
[2024-07-28 17:55] LABS: Absolute Eosinophils 0.4 K/uL (0-0.5); Absolute Lymphocytes (CBC) 1.7 K/uL (0.7-4.9); Absolute Monocytes 0.6 K/uL (0.1-1.3); Absolute Neutrophil 6.1 K/uL (1.8-8.0); Basophils % 0.5 % (0-1.3); Hematocrit 41.9 % (36.0-45.0); Lymphocytes % 19.3 % (15.3-44.8); MCH 29.6 pg (27.0-35.0); MCHC 33.4 g/dL (32.0-36.0); MCV 88.8 fL (80-100); MPV 8.8 fL (7.6-11.3); Monocytes % 6.9 % (3.3-12.3); Neutrophils % 69.3 % (41.7-73.7); Nucleated Red Blood Cells % 0.1 % (0-0); Platelets 272 thou/uL (152-406); RBC Red Blood Cell Count 4.71 M/uL (3.86-4.86); Red Cell Distribution Width 13.2 % (12.1-15.2)
[2024-07-28 18:04] LABS: Specific Gravity 1.005 (1.005-1.030); Urine Bacteria <20 /HPF (<20); Urine Bilirubin NEGATIVE (Negative); Urine Blood Trace (Negative); Urine Clarity Turbid (Clear); Urine Color Colorless (Yellow); Urine Culture Reflex Order NOT NEEDED; Urine Glucose NEGATIVE (Negative); Urine Ketones NEGATIVE (Negative); Urine Microscopic Reflex YN ORDER UMIC; Urine Nitrite NEGATIVE (Negative); Urine Protein NEGATIVE (Negative); Urine RBC None Seen /HPF (None Seen); Urine Urobilinogen Normal (Normal); Urine WBC <5 /HPF (<5)
[2024-07-28 18:21] LABS: Albumin 3.5 g/dL (3.4-5.0); Anion Gap 9.5 mEq/L (5.0-15.0); Bilirubin Total 0.8 mg/dL (0.2-1.0); Globulin 3.6 g/dL (2.3-3.5); Potassium 3.5 mEq/L (3.5-5.1); Protein, Total 7.1 g/dL (6.4-8.2)
--- NOTE | 2024-07-28 18:24 | ER ---
Nurse's Notes [facility] Name: Juliet Elena Age: 24 yrs Sex: Female : 2000 Arrival Date: 07/28/2024 Time: 16:31 Bed 20 Private MD: Diagnosis: Encounter for test, result negative;Lower abdominal pain, unspecified Presentation: 07/28 16:44 Chief complaint: Patient states: POSITIVE UPT AT HOME LAST PM, +CRAMPING AND NAUSEA. bp Coronavirus screen: At this time, the client does not indicate any symptoms associated with coronavirus-19. Ebola Screen: No symptoms or risks identified at this time. Initial Sepsis Screen: Does the patient meet any 2 criteria? No. Patient's initial sepsis screen is negative. Does the patient have a suspected source of infection? No. Patient's initial sepsis screen is negative. Risk Assessment: Do you want to hurt yourself or someone else? Patient reports no desire to harm self or others. Onset of symptoms is unknown. 16:44 Method Of Arrival: Ambulatory bp 16:44 Acuity: RUPAL 4 bp Triage Assessment: 16:45 General: Appears in no apparent distress. comfortable, Behavior is calm, cooperative, bp appropriate for age. Pain: Complains of pain in pelvis. EENT: No deficits noted. Neuro: No deficits noted. Cardiovascular: No deficits noted. Respiratory: No deficits noted. GI: No signs and/or symptoms were reported involving the gastrointestinal system. : Denies discharge, vaginal bleeding. Derm: No deficits noted. Musculoskeletal: No deficits noted. 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 - Infectious Disease History:: Denies. - Social history:: Smoking status: Patient denies any tobacco usage or history of. Screenin:20 [facility] ED Fall Risk Assessment (Adult) History of falling in the last 3 months, me1 including since admission No falls in past 3 months (0 pts) Confusion or Disorientation No (0 pts) Intoxicated or Sedated No (0 pts) Impaired Gait No (0 pts) Mobility Assist Device Used No (0 pt) Altered Elimination No (0 pt) Score/Fall Risk Level 0 - 2 = Low Risk Maintained a safe environment, Provided non-skid footwear, Hourly rounding (assess needs \T\ fall precautionary measures) done. Abuse screen: Denies threats or abuse. Nutritional screening: No deficits noted. Tuberculosis screening: No symptoms or risk factors identified. Assessment: 17:20 General: Appears comfortable, well groomed, well developed, well nourished, Behavior is me1 calm, cooperative, appropriate for age, Reports POSITIVE UPT AT HOME LAST PM, +CRAMPING AND NAUSEA. Pain: Complains of pain in left lower quadrant and right lower quadrant and pelvis Pain does not radiate. Pain currently is 3 out of 10 on a pain scale. Quality of pain is described as crampy, Pain began suddenly, Is continuous. Neuro: Level of Consciousness is awake, alert, obeys commands, Oriented to person, place, time, situation, Appropriate for age. Cardiovascular: Patient's skin is warm and dry. Respiratory: Airway is patent Trachea midline Respiratory effort is even, unlabored, Respiratory pattern is regular, symmetrical. GI: Reports nausea. : No signs and/or symptoms were reported regarding the genitourinary system. EENT: No signs and/or symptoms were reported regarding the EENT system. Derm: Skin is intact, is healthy with good turgor, Skin is pink, warm \T\ dry. Musculoskeletal: No signs and/or symptoms reported regarding the musculoskeletal system. Vital Signs: 16:44 BP 145 / 83; Pulse 100; Resp 16; Temp 98; Pulse Ox 100% ; bp 17:45 BP 118 / 76; Pulse 85; Resp 16; Pulse Ox 99% ; me1 18:30 BP 138 / 94; Pulse 97; Resp 15; Temp 98.4; Pulse Ox 99% ; me1 ED Course: 16:33 Patient arrived in ED. ra3 16:34 [facility]. cp 16:34 Hayes Ortega MD is Attending Physician. cp 16:45 Triage completed. bp 16:45 Arm band placed on. bp 17:20 Patient has correct armband on for positive identification. Bed in low position. Call me1 light in reach. Side rails up X2. Provided Education on: POC. Verbalized understanding.. Client placed on continuous cardiac and pulse oximetry monitoring. NIBP monitoring applied. Pulse ox on. NIBP on. 17:20 No provider procedures requiring assistance completed. me1 17:25 Katerina Khoury, RN is Primary Nurse. me1 17:39 Initial lab(s) drawn, by me, sent to lab. Urine collected: clean catch specimen, clear. me1 Inserted saline lock: 22 gauge in right antecubital area, using aseptic technique. 17:40 CBC with Diff Sent. me1 17:40 CMP Sent. me1 17:40 Lipase Sent. me1 17:40 Urinalysis w/ reflexes Sent. me1 17:40 Test, Serum Sent. me1 18:11 PHCP role handed off by Hayes Bustos PA sb4 18:11 Sarah Burns PA-C is PHCP. sb4 18:22 Hayes Bustos PA is PHCP. cp 18:50 IV discontinued, intact, bleeding controlled, No redness/swelling at site. Pressure me1 dressing applied. Administered Medications: No medications were administered Medication: 17:20 VIS not applicable for this client. me1 Outcome: 18:23 Discharge ordered by MD. cp 18:50 Discharged to home ambulatory, me1 18:50 Condition: stable 18:50 Discharge instructions given to patient, Instructed on discharge instructions, follow up and referral plans. Demonstrated understanding of instructions, follow-up care, 18:50 Patient left the ED. me1 Signatures: Hayes Bustos PA PA cp Peltier, Brian, RN SAL bp Sarah Burns PA-C PA-C sb4 Katerina Khoury, SAL RN [facility] ra3 Corrections: (The following items were deleted from the chart) 17:54 17:40 Test, Urine+UC.LAB.BRZ drawn and sent. me1 EDMS 18:43 16:44 Chief complaint: Patient states: POSITIVE UPT AT HOME LAST PM, +CRAMPING AND me1 NAUSEA bp
--- NOTE | 2024-07-28 18:24 | EDPHYS ---
Physician Documentation [facility] Name: Juliet Elena Age: 24 yrs Sex: Female : 2000 Arrival Date: 07/28/2024 Time: 16:31 Bed 20 Private MD: ED Physician Hayes Ortega HPI: 07/28 16:48 This 24 yrs old Female presents to ER via Ambulatory with complaints of Preg cp test. 16:48 The patient presents with abdominal pain in the lower abdomen. cp 16:48 Onset: The symptoms/episode began/occurred today. cp 16:48 Associated signs and symptoms: Pertinent positives: nausea. The symptoms are described cp as crampy. Severity of pain: in the emergency department the pain is unchanged despite home interventions. Patient reports faint positive line on home test and requests blood test. 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 - Infectious Disease History:: Denies. - Social history:: Smoking status: Patient denies any tobacco usage or history of. ROS: 16:50 Abdomen/GI: Positive for abdominal pain, nausea, cp 16:50 Constitutional: Negative for body aches, chills, fever, poor PO intake, cp 16:50 Eyes: Negative for injury, pain, redness, and discharge, cp 16:50 ENT: Negative for drainage from ear(s), ear pain, sore throat, difficulty swallowing, difficulty handling secretions, 16:50 Cardiovascular: Negative for chest pain, palpitations, 16:50 Respiratory: Negative for cough, shortness of breath, wheezing, 16:50 Back: Negative for pain at rest, pain with movement, 16:50 : Negative for urinary symptoms, 16:50 All other systems are negative, Exam: 16:55 Constitutional: The patient appears in no acute distress, alert, awake, well developed, cp well nourished, 16:55 Head/Face: Normocephalic, atraumatic. cp 16:55 Eyes: Periorbital structures: appear normal, Conjunctiva: normal, no exudate, no injection, Sclera: no appreciated abnormality, Lids and lashes: appear normal, bilaterally, 16:55 ENT: External ear(s): are unremarkable, Nose: is normal, Mouth: Lips: moist, Oral mucosa: moist, Posterior pharynx: Airway: no evidence of obstruction, patent, 16:55 Chest/axilla: Inspection: normal, 16:55 Cardiovascular: Rate: tachycardic, Rhythm: regular, 16:55 Respiratory: the patient does not display signs of respiratory distress, Respirations: normal, no use of accessory muscles, no retractions, labored breathing, is not present, Breath sounds: are clear throughout, no decreased breath sounds, no stridor, no wheezing, 16:55 Abdomen/GI: Inspection: abdomen appears normal, Bowel sounds: active, all quadrants, Palpation: soft, in all quadrants, mild abdominal tenderness, in the right lower quadrant and left lower quadrant, rebound tenderness, is not appreciated, involuntary guarding, is not appreciated, 16:55 Back: CVA tenderness, is absent, cp Vital Signs: 16:44 BP 145 / 83; Pulse 100; Resp 16; Temp 98; Pulse Ox 100% ; bp 17:45 BP 118 / 76; Pulse 85; Resp 16; Pulse Ox 99% ; me1 18:30 BP 138 / 94; Pulse 97; Resp 15; Temp 98.4; Pulse Ox 99% ; me1 MDM: 16:42 Medical Screening Exam initiated esha 17:00 Differential diagnosis: Ectopic , non-specific abd pain, Ovarian Torsion, cp Pyelonephritis, Tubal Ovarian Abcess, Ureterolithiasis, urinary tract infection. 18:22 Data reviewed: vital signs, nurses notes, lab test result(s), and as a result, I will cp discharge patient. 18:22 Counseling: I had a detailed discussion with the patient and/or guardian regarding the cp historical points, exam findings, and any diagnostic results supporting the discharge/admit diagnosis, lab results, to return to the emergency department if symptoms worsen or persist or if there are any questions or concerns that arise at home. Special discussion: Based on the patient's Hx, exam, and Dx evaluation, there is no indication for emergent surgery or inpatient Tx. It is understood by the patient/guardian that if the Sx's persist or worsen they need to return immediately for re-evaluation. 07/28 16:45 Order name: CBC with Diff; Complete Time: 18:13 cp 07/28 16:45 Order name: CMP; Complete Time: 18:21 cp 07/28 16:45 Order name: Lipase; Complete Time: 18:21 cp 07/28 16:45 Order name: Urinalysis w/ reflexes; Complete Time: 18:13 cp 07/28 17:39 Order name: Test, Serum; Complete Time: 18:13 me1 07/28 16:45 Order name: IV Saline Lock; Complete Time: 17:40 cp 07/28 16:45 Order name: Labs collected and sent; Complete Time: 17:40 cp Administered Medications: No medications were administered Disposition Summary: 07/28/24 18:23 Discharge Ordered Notes: Location: Home cp Problem: new cp Symptoms: have improved cp Condition: Stable cp Diagnosis - Encounter for test, result negative cp - Lower abdominal pain, unspecified cp Followup: cp - With: Emergency Department - When: As needed - Reason: Worsening of condition Discharge Instructions: - Discharge Summary Sheet cp - Abdominal Pain, Adult cp - Home Test Information cp Forms: - Medication Reconciliation Form cp - Antibiotic Education cp - Prescription Opioid Use cp - Patient Portal Instructions cp - Leadership Thank You Letter cp Addendum: 08/01/2024 07:27 Co-signature as Attending Physician, Hayes Ortega MD I agree with the assessment and c taylor plan of care. Signatures: Dispatcher [employer] EDHayes Pate MD MD cha Page, Corey, PA PA cp Peltier, Brian, RN RN Sarah Leger PA-C PA-C sb4 Corrections: (The following items were deleted from the chart) 07/28 17:43 16:55 Abdomen/GI: Inspection: abdomen appears normal, cp cp 17:54 16:45 Test, Urine+UC.LAB.BRZ ordered. EDID EDID
[2024-07-28 19:36] VITALS: O2SAT 99
[2024-07-28 19:37] VITALS: BP 138/94; TEMP 98.4
== END 2024-07-28 18:50 | disposition home or self-care (01) ==
LOC: ER 16:31
DX: R10.30 Lower abdominal pain, unspecified (principal); Z32.02 Encounter for pregnancy test, result negative; J45.909 Unspecified asthma, uncomplicated
CPT/HCPCS: 36415; 80053; 81001; 83690; 84703; 85025; 99284

== ENCOUNTER 2024-09-17 15:11 | Inpatient (IN) | payer SELFPAY ==
--- OUTSIDE RECORDS SUMMARY | 2024-09-17 15:17 | XMS REPORT | Continuity of Care Document ---
Author Name Unknown Address [address] [facility] [address] [place] [address] [facility] Address [address] [facility] [address] [place] [address] Care Team Providers Care Junior Copywriter Name Role Phone MERCY AZUL Primary Care Physician Unava ilMERCY Horan Attending Clinician Unavaila GLORIA Becker Attending Clinician Unavailable Gloria Ponce MD Attending Clinician [phone] Doctor Unassigned, [place] Attending Clinician U Mercy Fernandez CNM Attending Clinician [phone] ZANA GLEASON Attending Clinician Unavail able [facility]ul Attending Clinician Unavail able Shea Mclaughlin NP Attending Clinician [phone] SHEA MCLAUGHLIN Attending Clinician Unavailable GLORIA PONCE Admitting Clinician Unavailable [facility]_WalkInSchedvaishali Admitting Clinician Unavail able SHEA MCLAUGHLIN Admitting Clinician Unavailable Payers Payer Name Policy Type Policy Number Effective Date Expirati on Date Source [id number] 2022 00:00:00 [facility] [id number] 2015 00:00:00 Problems Condition Name Condition Details Condition Category Status Onset Date Resolution Date Last Treatment Date Treating Clinician Comments Source Allergic rhinitis Allergic Rhinitis Problem Active 2023-07 00:00: 00 [facility] Exacerbati on of mild persistent asthma Exacerbati on of Mild Persistent Asthma Problem Active 2023-07 00:00: 00 [facility] History of HSV History of HSV Disease Active 11-13 00:00: 00 [facility] Asthma Asthma Disease Active 08-02 00:00: 00 [facility] No known active problems No known active problems Disease [facility] Allergies, Adverse Reactions, Alerts Allergy Name Allergy Type Status Severity Reaction(s) Onset Date Inactive Date Treating Clinician Comments Source NO KNOWN ALLERGIE S Drug Class Active [facility] Social History Social Habit Start Date Stop Date Quantity Comments Source [facility] to SARS-CoV-2 (event) 2022-11-02 00:00:00 2022-11-12 08:40:00 Not sure [facility] History of Social function 2022-11-12 00:00:00 2022-11-12 00:00:00 [facility] Tobacco use and exposure 2022-11-12 00:00:00 2022-11-12 00:00:00 Smokeless tobacco non-user [facility] Alcohol intake 2022-11-12 00:00:00 2022-11-12 00:00:00 Ex-drinker (finding) [facility] Alcohol Comment 2022-11-12 00:00:00 2022-11-12 00:00:00 socially [facility] Sex Assigned At 2000 00:00:00 2000 00:00:00 [facility] Smoking Status Start Date Stop Date Source Never smoked tobacco [facility] Medications Ordered Medication Name Filled Medication Name Start Date Stop Date Current Medication? Ordering Clinician Indication Dosage Frequency Signature (SIG) Comments Components Source TAKE 10 ML BY MOUTH EVERY 4 TO 6 HOURS NEEDED FOR COUGH AND CONGESTION 08-03 00:00: 00 Yes Toñito Keene TAKE 10 ML EVERY 4-6 HOURS NEEDED FOR COUGH AND CONGESTION 08-03 00:00: 00 11-01 00:00 :00 No [id number] Toñito Keene ketorolac (TORADOL) injection 30 mg 2022-07 10:00: 00 07-05 09:03 :00 No 30mg 30 mg, Slow IV Push, ONCE, 1 dose, On Tue07/05/23 at 0400, [facility] NaCl 0.9% (NS) bolus infusion 1,000 mL 2022-07 09:45: 00 07-05 10:06 :00 No 1000mL at 999 mL/hr, 1,000 mL, IV Infusion, ONCE, 1 dose, On Tue07/05/23 at 0345, STAT [facility] ondansetron (ZOFRAN (PF)) injection 4 mg 2022-07 09:00: 00 07-05 08:06 :00 No 4mg 4 mg, Slow IV Push, ONCE, 1 dose, On Tue07/05/23 at 0300, [facility] FENTanyl PF (SUBLIMAZE (PF)) injection 75 mcg 2022-07 09:00: 00 07-05 08:07 :00 No 75ug 75 mcg, Slow IV Push, ONCE, 1 dose, On Tue07/05/23 at 0300, STAT [facility] NaCl 0.9% (NS) bolus infusion 1,000 mL 2022-07 09:00: 00 07-05 09:40 :00 No 1000mL at 999 mL/hr, 1,000 mL, IV Infusion, ONCE, 1 dose, On Tue07/05/23 at 0300, [facility] cefTRIAXone (ROCEPHIN) 1,000 mg in NaCl 0.9% (NS) 100 mL MINI-BAG 2022-07 08:45: 00 07-05 09:40 :00 No 1000mg 1,000 mg, IV Piggyback, ONCE, 1 dose, On Tue07/05/23 at 0245, Administer over 30 Minutes, 100 mL
Reas on for Anti-Infec tive: Documented Infection< br>Documen janessa Infection Site: Urine
D uration of Therapy: Other (see Comments) [facility] iopamidol (ISOVUE 370-500 mL) injection 100 mL 2022-07 08:45: 00 07-05 08:45 :00 No [id number] 100mL 100 mL, Intravenou s, ONCE, 1 dose, On Tue07/05/23 at 0245, Routine [facility] TAKE 1 CAPSULE BY MOUTH IN THE [...] 2022-07 00:00: 00 07-05 00:00 :00 No [id number] 500mg Take 1 capsule by mouth in the morning and 1 capsule at noon and 1 capsule in the evening. [facility] ondansetron 4 mg disintegrat ing tablet 2022-07 00:00: 00 07-05 00:00 :00 No [id number] 4mg Take 1 tablet by mouth every 4 (four) hours as needed for Nausea and Vomiting (N/V). [facility] naproxen 500 mg tablet 2022-07 00:00: 00 07-05 00:00 :00 No [id number] 500mg Take 1 tablet by mouth in the morning and 1 tablet in the evening. Take with meals. Do all this for 10 days. [facility] TAKE 1 TABLET DAILY. 2022-07 00:00: 00 [...] Yes Toñito Keene TAKE 1 TABLET DAILY. 608 00:00: 00 11-01 00:00 :00 No 2535 Toñito Keene RINSE AND EXPECTORATE WITH 1/2 OUNCE FOR 30 SECONDS TWICE A DAY 12-01 00:00: 00 Yes Toñito Keene TAKE 1 TABLET BY MOUTH TWICE A DAY FOR 7 DAYS 12-01 00:00: 00 Yes Toñito Keene albuterol 90 mcg/actuati on inhaler 11-12 09:16: 28 Yes [id number] albuterol sulfate HFA 90 mcg/actuat ion aerosol inhaler Inhale 2 puffs every 4 hours by inhalation route as needed. [facility] norgestimat e-ethinyl estradiol (SPRINTEC, 28, ORAL) 11-12 09:16: 28 Yes [id number] Take by mouth. [facility] TAKE 1 TABLET DAILY. 4-11 00:00: 00 11-01 00:00 :00 No 2535 Toñito Keene TAKE 1 TABLET DAILY. 4-03 00:00: 00 11-01 00:00 :00 No 2535 Toñito Keene TAKE 1 TABLET 3 TIMES DAILY. 10-05 00:00: 00 11-01 00:00 :00 No 1 Toñito Keene TAKE 1 TABLET TWICE DAILY WITH MEALS 09-29 00:00: 00 11-01 00:00 :00 No [id number] Toñito Keene TAKE 1 TABLET EVERY 8 HOURS WITH FOOD NEEDED. 16 00:00: 00 11-01 00:00 :00 No 800 Toñito Keene ketorolac (TORADOL) injection 30 mg 2021-07 02:00: 00 06-13 01:07 :00 No 30mg 30 mg, Slow IV Push, ONCE, 1 dose, On 06/12/22 at 2000, Routine [facility] ondansetron (ZOFRAN (PF)) injection 4 mg 2021-07 01:00: 00 06-13 01:08 :00 No 4mg 4 mg, Slow IV Push, ONCE, 1 dose, On 06/12/22 at 1900, [facility] TAKE 1 CAPSULE BY MOUTH EVERY 6 (SIX) HOURS FOR 5 DAYS. 2021-07 00:00: 00 Yes Toñito Keene TAKE 1 TABLET BY MOUTH EVERY 8 HOURS NEEDED FOR NAUSEA AND VOMITING . 2021-07 00:00: 00 Yes Toñito Keene ondansetron 4 mg disintegrat ing tablet 2021-07 00:00: 00 11-12 00:00 :00 No [id number] 4mg Take 1 tablet by mouth every 8 (eight) hours as needed for Nausea and Vomiting (N/V). [facility] cephALEXin 250 mg capsule 2021-07 00:00: 00 06-18 05:59 :00 No [id number] 250mg Take 1 capsule by mouth every 6 (six) hours for 5 days. [facility] Dose Unknown 2018-07 00:00: 00 Yes Toñito [...] 1 puff every day by inhalation route. [facility] montelukast 10 mg tablet Take 1 tablet every day by oral route for 90 days. montelukast 10 mg tablet Take 1 tablet every day by oral route for 90 days. No 1 Q1D montelukas t 10 mg tablet Take 1 tablet every day by oral route for 90 days. [facility] Immunizations Ordered Immunization Name Filled Immunization Name Date Status Comments Source HPV9 2022-11-12 00:00:00 Completed [facility] SARS-COV-2 COVID-19 PFIZER VACCINE 2021-02-24 00:00:00 Completed [facility] Meningococcal Polysaccharide (groups A, C, Y and W-135) conjugate vaccine (MCV4P) 2017-06-23 00:00:00 Completed [facility] Meningococcal Polysaccharide (groups A, C, Y and W-135) conjugate vaccine (MCV4P) 2017-06-23 00:00:00 Completed [facility] Meningococcal Polysaccharide (groups A, C, Y and W-135) conjugate vaccine (MCV4P) 2017-06-23 00:00:00 Completed [facility] Influenza Virus Vaccine Quad IM 6-35 MO 2016-04-09 00:00:00 Completed [facility] Influenza Virus Vaccine 2016-04-09 00:00:00 Completed [facility] Influenza, injectable Influenza, injectable 2016-04-09 00:00:00 Completed Toñito Keene HEPATITIS A 2011-10-27 00:00:00 Completed [facility] HPV 2011-10-17 00:00:00 Completed [facility] HEPATITIS A 2010-09-28 00:00:00 Completed [facility] Meningococcal Polysaccharide (groups A, C, Y and W-135) conjugate vaccine (MCV4P) 2010-09-28 00:00:00 Completed [facility] TDAP 2010-09-28 00:00:00 Completed [facility] DTaP, Unspecified Formulation 2002-09-24 00:00:00 Completed [facility] DTAP 2002-09-24 00:00:00 Completed [facility] IPV 2002-09-24 00:00:00 Completed [facility] MMR 2002-09-24 00:00:00 Completed [facility] Hep B, Adol or Pedi Dosage 1998 00:00:00 Completed [facility] Meningococcal Polysaccharide (groups A, C, Y and W-135) conjugate vaccine (MCV4P) Unknown Completed [facility] HPV9 Unknown Completed [facility] HPV Unknown Completed [facility] DTAP Unknown Completed [facility] HEPATITIS A Unknown Completed [facility] Hep B, Adol or Pedi Dosage Unknown Completed [facility] Influenza Virus Vaccine Unknown Completed [facility] SARS-COV-2 COVID-19 PFIZER VACCINE Unknown Completed [facility] IPV Unknown Completed [facility] MMR Unknown Completed [facility] TDAP Unknown Completed [facility] DTaP, Unspecified Formulation Unknown Completed [facility] Influenza Virus Vaccine Quad IM 6-35 MO Unknown Completed [facility] Meningococcal Polysaccharide (groups A, C, Y and W-135) conjugate vaccine (MCV4P) Unknown Completed [facility] HPV9 Unknown Completed [facility] HPV Unknown Completed [facility] DTAP Unknown Completed [facility] HEPATITIS A Unknown Completed [facility] Hep B, Adol or Pedi Dosage Unknown Completed [facility] Influenza Virus Vaccine Unknown Completed [facility] SARS-COV-2 COVID-19 PFIZER VACCINE Unknown Completed [facility] IPV Unknown Completed [facility] MMR Unknown Completed [facility] TDAP Unknown Completed [facility] DTaP, Unspecified Formulation Unknown Completed [facility] Influenza Virus Vaccine Quad IM 6-35 MO Unknown Completed [facility] Vital Signs Vital Name Observation Time Observation [...] Systolic blood pressure 2023-07-05 09:19:00 111 mm[Hg] [facility] Diastolic blood pressure 2023-07-05 09:19:00 67 mm[Hg] [facility] Heart rate 2023-07-05 09:19:00 81 /min Unive [facility] Respiratory rate 2023-07-05 09:19:00 18 /min [facility] Oxygen saturation in Arterial blood by Pulse oximetry 2023-07-05 09:19:00 100 /min [facility] Body temperature 2023-07-05 07:15:00 36.78 Erendira [facility] Body height 2023-07-05 07:15:00 167.6 cm [facility] Body weight 2023-07-05 07:15:00 85.049 kg [facility] BMI 2023-07-05 07:15:00 30.26 kg/m2 [facility] Systolic blood pressure 2022-11-12 14:00:00 135 mm[Hg] [facility] Diastolic blood pressure 2022-11-12 14:00:00 83 mm[Hg] [facility] Heart rate 2022-11-12 14:00:00 82 /min Unive [facility] Body temperature 2022-11-12 14:00:00 36.33 Erendira [facility] Respiratory rate 2022-11-12 14:00:00 20 /min [facility] Body height 2022-11-12 14:00:00 167.6 cm [facility] Body weight 2022-11-12 14:00:00 81.829 kg [facility] BMI 2022-11-12 14:00:00 29.12 kg/m2 [facility] Height 2022-08-02 00:00:00 65 [in_i] [facility] BMI (Body Mass Index) 2022-08-02 00:00:00 29.4 kg/m2 [facility] BP Systolic 2022-08-02 00:00:00 106 mm[Hg] [facility] Body Weight 2022-08-02 00:00:00 2824 [oz_av] [facility] BP Diastolic 2022-08-02 00:00:00 80 mm[Hg] [facility] Systolic blood pressure 2022-06-13 02:00:00 116 mm[Hg] [place] [facility] Diastolic blood pressure 2022-06-13 02:00:00 67 mm[Hg] [place] [facility] Heart rate 2022-06-13 02:00:00 72 /min [facility] Respiratory rate 2022-06-13 02:00:00 16 /min [facility] Oxygen saturation in Arterial blood by Pulse oximetry 2022-06-13 02:00:00 100 /min [facility] Body temperature 2022-06-13 00:54:02 37.22 Erendira [facility] Body height 2022-06-13 00:39:00 167.6 cm [facility] Body weight 2022-06-13 00:39:00 79.379 kg [facility] BMI 2022-06-13 00:39:00 28.25 kg/m2 [facility] BP Systolic 2024-06-15 15:01:00 134 mm[Hg] Step hen F Jassi BP Diastolic 2024-06-15 15:01:00 70 mm[Hg] Darwin phen F Jassi Weight Measured 2024-06-15 15:01:00 191.00 pounds Toñito F Jassi Height Measured 2024-06-15 15:01:00 66.00 inches Toñito F Jassi Body Temperature 2024-06-15 15:01:00 98.20 degrees Toñito F Jassi Heart Rate 2024-06-15 15:01:00 69.00 /min Bella en F Jassi Respiratory Rate 2024-06-15 15:01:00 18.00 /min Toñito F Jassi BP Systolic 2024-06-05 17:48:00 118 mm[Hg] Step hen F Jassi BP Diastolic 2024-06-05 17:48:00 67 mm[Hg] Darwin phen F Jassi Weight Measured 2024-06-05 17:48:00 191.40 pounds Toñito F Jassi Height Measured 2024-06-05 17:48:00 66.00 inches Toñito F Jassi Body Temperature 2024-06-05 17:48:00 98.40 degrees Toñito [...] Jassi Height Measured 2023-07-05 15:22:00 66.00 inches Toñito F Jassi Body Temperature 2023-07-05 15:22:00 97.90 [...] PELVIS W CONTRAST 2023-07-05 07:57:14 Gloria Ponce [facility] LIPASE 2023-07-05 07:33:00 [facility] COMP. METABOLIC PANEL ([id number]) 2023-07-05 07:33:00 Gloria Ponce [facility] CBC WITH DIFF 2023-07-05 07:33:00 Gloria Ponce [facility] URINALYSIS 2023-07-05 07:33:00 Gloria Ponce [facility] POCT TEST 2023-07-05 07:26:00 Rosy Ponce [facility] NOTICE OF PRIVACY PRACTICES 2023-07-05 07:11:46 Doctor Unassigned, [place] [facility] CONSENT/REFUSAL FOR DIAGNOSIS AND TREATMENT 2023-07-05 07:11:11 Doctor Unassigned, [place] [facility] PAP SMEAR-LIQUID BASED-CP 2022-11-12 16:34:00 Mercy Azul [facility] GARDASIL 9 (HPV 9V) VACCINE 2022-11-12 14:41:46 Mercy Azul [facility] ASSIGNMENT OF BENEFITS 2022-11-12 13:38:22 Docto r Unassigned, [place] [facility] CT ABDOMEN PELVIS WO CONTRAST 2022-06-13 01:18:23 Shea Mclaughlin [facility] COMP. METABOLIC PANEL ([id number]) 2022-06-13 01:07:00 Shea Mclaughlin [facility] CBC WITH DIFF 2022-06-13 01:07:00 Shea Mclaughlin [facility] URINALYSIS 2022-06-13 01:07:00 Shea Mclaughlin [facility] POCT TEST 2022-06-13 01:07:00 Shea Mclaughlin [facility] NOTICE OF PRIVACY PRACTICES 2022-06-13 00:34:58 Doctor Unassigned, [place] [facility] CONSENT/REFUSAL FOR DIAGNOSIS AND TREATMENT 2022-06-13 00:34:28 Doctor Unassigned, [place] [facility] Encounters Start Date/Time End Date/Time Encounter Type Admission Type Attending [facility] Facility Care Department Encounter ID Source 2024-07-03 09:20:09 2024-07-03 09:20:09 Outpatient SFA [facility] [id number] Toñito Keene 2024-06-15 00:00:00 2024-06-15 00:00:00 Outpatient Visit SFA [id number] Toñito Jon Jassi 2024-06-05 17:34:10 2024-06-05 17:34:10 Outpatient SFA SFA [id number] Toñito Jon Jassi 2024-06-05 00:00:00 2024-06-05 00:00:00 Outpatient Visit SFA [id number] Toñito Jon Jassi 2024-04-27 00:00:00 2024-04-27 00:00:00 [facility] [address] [address] , Ph. On license of [facility] [id number] [facility] 2024-04-04 08:32:45 2024-04-04 08:32:45 Outpatient SFA SFA [id number] Toñito Keene 2024-04-04 00:00:00 2024-04-04 00:00:00 Outpatient Visit SFA [id number] Toñito Keene 2024-01-09 16:47:19 2024-01-09 16:47:19 Outpatient SFA SFA [id number] Toñito Keene 2024-01-09 00:00:00 2024-01-09 00:00:00 Outpatient Visit SFA [id number] Toñito Keene 2023-11-22 15:00:00 2023-11-22 15:00:00 Outpatient [facility] [id number] [facility] 2023-11-18 09:00:00 2023-11-18 09:00:00 Outpatient [facility] [id number] [facility] 2023-11-10 00:00:00 2023-11-10 00:00:00 Sudhir Orta, SENIOR PAINTER: [address] [address] , Ph. On license of [facility]_Need [facility] [id number] [facility] 2023-08-03 17:13:14 2023-08-03 17:13:14 Outpatient SFA [facility] [id number] Toñito Keene 2023-07-05 15:13:41 2023-07-05 15:13:41 Outpatient SFA [facility] [id number] Toñito Keene 2023-07-05 01:29:00 2023-07-05 04:13:00 Emergency X GLORIA PONCE [facility] ERT [id number] [facility] 2023-07-05 01:29:00 2023-07-05 04:13:00 Emergency Gloria Ponce [facility] [id number] [id number] [id number] [id number] [facility] 2023-07-05 00:00:00 2023-07-05 00:00:00 Orders Only Doctor Unassigned, [place] [facility] [id number] [id number] [id number] [facility] 2023-05-09 16:52:07 2023-05-09 16:52:07 Outpatient SFA SFA [id number] Toñito Jon [place] 2023-02-25 15:02:57 2023-02-25 15:02:57 Outpatient SFA SFA [id number] Toñito Jon Jassi 2022-12-15 15:58:16 2022-12-15 15:58:16 Outpatient SFA [facility] [id number] Toñito Jon [place] 2022-11-12 09:00:00 2022-11-12 09:53:38 Outpatient R [facility] [id number] [facility] 2022-11-12 09:00:00 2022-11-12 09:53:38 Office Visit Mercy Azul [facility] 1..840.114 350.1.13.10 [id number] [id number] [facility] 2022-11-12 00:00:00 2022-11-12 00:00:00 Orders Only Doctor Unassigned, [place] [facility] 1.2840.114 350.1.13.10 4.2.7.2.686 [id number] [facility] 2022-10-19 15:47:56 2022-10-19 15:47:56 Outpatient SFA SFA [id number] Toñito Jon Jassi 2022-10-11 15:40:17 2022-10-11 15:40:17 Outpatient SFA SFA [id number] Toñito Keene 2022-10-05 16:14:49 2022-10-05 16:14:49 Outpatient [facility] [id number] Toñito Keene 2022-09-23 15:25:56 2022-09-23 15:25:56 Outpatient [facility] [id number] Toñito Keene 2022-08-02 00:00:00 2022-08-02 00:00:00 Outpatient [facility] [id number] [facility] 2022-08-02 00:00:00 2022-08-02 00:00:00 JOHNNY Pressley: [address] [address] , Ph. On license of [facility]_C[facility]_Need martina Office [id number] [facility] 2022-06-12 18:51:00 2022-06-12 20:28:00 Emergency Shea Mclaughlin [facility] [id number] 350.1.13.10 [id number] [id number] [facility] 2022-06-12 18:51:00 2022-06-12 20:28:00 Emergency X NINGCARLOS LOPEZALA [facility] ERT [id number] [facility] 2022-06-10 10:07:51 2022-06-10 10:07:51 Outpatient [facility] [id number] Toñito Keene Results Test Description Test Time Test Comments Results Result Co mments Source [id number] 04:53:51* Test Item Value Reference Range Interpretation Comme nts TESTOSTERONE (test code = 2830) <12 NG/DL <=55 NOTE: TOTAL TESTOSTERONE ASSAY SENSITIVITY IS 12 NG/DL. TO DETERMINE NORMAL VS. SUBNORMAL TESTOSTERONE IN CHILDREN AND WOMEN, CONSIDER TESTING WITH ULTRASENSITIVE TESTOSTERONE. [id number] 04:53:41* Test Item Value Reference Range Interpretation Comme nts PROLACTIN (test code = 2800) 19.4 NG/ML 5.0-37.0 NOTE: Methodolog y is Carline Olimpia Electrochemiluminescence Immunoassay (ECLIA). Values obtained with different assays/manufacturers cannot be used interchangeably. Results should not be used as sole basis to establish the presence or absence of malignancy. FSH + LH [id number] 04:53:41* Test Item Value Reference Range Interpretation [...] LUTEAL PHASE 1.0-11.4 IU/L POSTMENOPAUSAL 7.7-58.5 IU/L [id number] 04:53:41* Test Item Value Reference Range Interpretation [...] . . . . . NG/ML 58.70-214.00 [id number] 04:53:41* Test Item Value Reference Range Interpretation [...] ESTRADIOL IN POSTMENOPAUSAL FEMALES, CONSIDER ULTRASENSITIVE ESTRADIOL ([facility] ORDER CODE 5678). METHODOLOGY IS CARLINE OLIMPIA ELECTROCHEMILUMINESCENT IMMUNOASSAY WITH A LIMIT OF DETECTION OF 17 PG/ML. TSH, THIRD [id number] 04:53:41* Test Item Value Reference Range Interpretation Comme [facility] TSH, THIRD GENERATION (test code = 2821) 2.000 UIU/ML 0.400-4.100 HCG, [id number] 04:08:38* Test Item Value Reference Range Interpretation Comme [facility] HCG, QUANTITATIVE (test code = 2506) [...] . . . . . . MIU/ML [id number] FEMALES . . . . . . . . . . . . MIU/ML <=7 UNLESS OTHERWISE INDICATED, ALL TESTING PERFORMED AT [facility], [facility]. [address] [place] [id number] PROCUREMENT PROFESSIONAL LOGISTICS: TULIO WILLIAM M.D. CLIA NUMBER [id number] [place] [id number] HCG, [id number] 00:00:00* Test Item Value Reference Range Interpretation Comme nts HCG, QUANTITATIVE (test code = 2506) <5 MIU/ML Toñito KeeneHCG, [id number] 00:00:00* Test Item Value Reference Range Interpretation Comme nts HCG, QUANTITATIVE (test code = 2506) <5 MIU/ML Toñito KeeneCULTURE, [id number] 08:04:45SPECIMEN NUMBER: [id number] CULTURE, URINE SPECIMEN NUMBER: [id number] SPECIMEN COMMENT: URINE SOURCE: URINE REPORT STATUS: FINAL FINAL REPORT: 07/07/2023 NO GROWTH AFTER 36 HOURS INCUBATION UNLESS OTHERWISE INDICATED, ALL TESTING PERFORMED AT [facility] [address] [place] [address] PROCUREMENT PROFESSIONAL LOGISTICS: TULIO WILLIAM M.D. CLIA NUMBER [id number] [place].[id number] CULTURE, [id number] 00:00:00* Test Item Value Reference Range Interpretation Comme nts CULTURE, URINE (test code = 97949) SPECIMEN NUMBER: [id number] Toñito KeeneCULTURE, [id number] 00:00:00* Test Item Value Reference Range Interpretation Comme nts CULTURE, URINE (test code = 78012) SPECIMEN NUMBER: [id number] Toñito KeeneCULTURE, [id number] 00:00:00* Test Item Value Reference Range Interpretation Comme nts CULTURE, URINE (test code = 57143) SPECIMEN NUMBER: [id number] Toñito KeeneCULTURE, [id number] 00:00:00* Test Item Value Reference Range Interpretation Comme nts CULTURE, URINE (test code = 32471) SPECIMEN NUMBER: [id number] Toñito KeeneCT ABDOMEN PELVIS W [id number] 08:40:07ORDERING PHYSICIAN: GLORIA PONCE CLINICAL HISTORY: Abdominal [...] uterus and adnexa are unremarkable. The bones areunremarkable.[facility] 07:26:00* Test Item Value Reference Range Interpretation Comme [facility] POCT PREG (test code = 1605) Negative On board controls acceptable with C Line (test code = 3574) Yes POCT PREG LOT # (test code = 3575) [id number] POCT PREG TEST DATE ( test code = 3576) 09/18/2024 Lab Interpretation (test cod e = 19216-9) Normal [facility], [id number] 09:44:11* Test Item Value Reference Range Interpretation Comme [facility] HCG, QUANTITATIVE (test code = 2506) [...] . . . . . . MIU/ML [id number]-GHAZCDGQWS FEMALES . . . . . . . . . . . . MIU/ML <=7 UNLESS OTHERWISE INDICATED, ALL TESTING PERFORMED AT [facility] [address] [place] [address] PROCUREMENT PROFESSIONAL LOGISTICS: TULIO WILLIAM M.D. CLIA NUMBER [id number] [facility] [place]. [id number] HCG, [id number] 00:00:00* Test Item Value Reference Range Interpretation Comme nts HCG, QUANTITATIVE (test code = 2506) <5 MIU/ML Toñitosalvador KeeneHCG, [id number] 00:00:00* Test Item Value Reference Range Interpretation Comme nts HCG, QUANTITATIVE (test code = 2506) <5 MIU/ML Toñito Danay KeeneHCG, [id number] 00:00:00* Test Item Value Reference Range Interpretation Comme nts HCG, QUANTITATIVE (test code = 2506) <5 MIU/ML Toñito F AustinHCG, [id number] 00:00:00* Test Item Value Reference Range Interpretation Comme nts HCG, QUANTITATIVE (test code = 2506) <5 MIU/ML Toñito KeeneHCG, [id number] 09:25:45* Test Item Value Reference Range Interpretation [...] . . . . . . MIU/ML 7-4VMJV-YPIGWPOHTB FEMALES . . . . . . . . . . . . MIU/ML <=7 UNLESS OTHERWISE INDICATED, ALL TESTING PERFORMED AT [facility] [address] [place] [address] PROCUREMENT PROFESSIONAL LOGISTICS: TULIO WILLIAM M.D. [place] NUMBER [id number] [facility] [place]. [id number] HCG, [id number] 00:00:00* Test Item Value Reference Range Interpretation Comme nts HCG, QUANTITATIVE (test code = 2506) <5 MIU/ML Toñito F AustinHCG, [id number] 00:00:00* Test Item Value Reference Range Interpretation Comme nts HCG, QUANTITATIVE (test code = 2506) <5 MIU/ML Toñito F AustinHCG, [id number] 00:00:00* Test Item Value Reference Range Interpretation Comme nts HCG, QUANTITATIVE (test code = 2506) <5 MIU/ML Toñito F AustinHCG, [id number] 00:00:00* Test Item Value Reference Range Interpretation Comme nts HCG, QUANTITATIVE (test code = 2506) <5 MIU/ML Toñito F AustinANA NON-REFLEX TO [id number] 03:13:07* Test Item Value Reference Range Interpretation Comme nts ANTI-NUCLEAR ANTIBODIES (test code = 3506) NEGATIVE NEGATIVE METHODOLOGY IS I NDIRECT IMMUNOFLUORESCENT ASSAY (IFA) WITH HUMAN EPITHELIAL (HEP-2) CELL LINE SUBSTRATE. MUKUL NON-REFLEX TO [id number] 00:00:00* Test Item Value Reference Range Interpretation Comme nts ANTI-NUCLEAR ANTIBODIES (sunni t code = 3506) NEGATIVE Toñito F AustinANA NON-REFLEX TO [id number] 00:00:00* Test Item Value Reference Range Interpretation Comme nts ANTI-NUCLEAR ANTIBODIES (sunni t code = 3506) NEGATIVE Toñito F AustinANA NON-REFLEX TO [id number] 00:00:00* Test Item Value Reference Range Interpretation Comme nts ANTI-NUCLEAR ANTIBODIES (sunni t code = 3506) NEGATIVE Toñito F AustinANA NON-REFLEX TO [id number] 00:00:00* Test Item Value Reference Range Interpretation Comme nts ANTI-NUCLEAR ANTIBODIES (sunni t code = 3506) NEGATIVE Toñito KeeneCOMPREHENSIVE METABOLIC [id number] 04:01:02* Test Item Value Reference Range Interpretation Comme nts GLUCOSE (test code = 2217) 94 MG/DL 70-99 BUN (test code = 2208) 9 MG/DL 6-20 CREATININE (test code = 2214) 0.58 MG/DL 0.60-1.30 L eGFR (2020 CKD-EPI) (test code = 02763) 130 ML/MIN/1.73 >60 CALC BUN/CREAT (test code = 2235) 16 RATIO 6-28 SODIUM (test code = 223) 143 MEQ/L 133-146 POTASSIUM (test code = 2228) 4.2 MEQ/L 3.5-5.4 CHLORIDE (test code = 2215) 106 MEQ/L 95-107 CARBON DIOXIDE (test code = 2206) 23 MEQ/L 19-31 CALCIUM (test code = 2209) 9.5 MG/DL 8.5-10.5 PROTEIN, TOTAL (test code = 2229) 7.6 G/DL 6.1-8.3 ALBUMIN (test code = 2201) 4.6 G/DL 3.5-5.2 CALC GLOBULIN (test code = 2240) 3.0 G/DL 1.9-3.7 CALC A/G RATIO (test code = 2234) 1.5 RATIO 1.0-2.6 BILIRUBIN, TOTAL (test code = 2207) 0.7 MG/DL See_Comment [Automated me ssage] The system which generated this result transmitted reference range: <=1.2. The reference range was not used to interpret this result as normal/abnormal. ALKALINE PHOSPHATASE (test code = 2204) 74 U/L 40-115 AST (test code = 2218) 14 U/L 9-40 ALT (test code = 2219) 17 U/L 5-40 [facility] has impo rtant pathology staff changes effective 09/08/2022. New pathology staff will provide uninterrupted, excellent patient care and clinical consultation. See URL: [email or web address]. UNLESS OTHERWISE INDICATED, ALL TESTING PERFORMED AT [facility] [address] [place] [address] PROCUREMENT PROFESSIONAL LOGISTICS: TULIO WILLIAM M.D. CLIA NUMBER [id number] [facility] [place] [place]. [id number] COMPREHENSIVE METABOLIC [id number] 00:00:00* Test Item Value Reference Range Interpretation Comme nts GLUCOSE (test code = 2217) 94 MG/DL BUN (test code = 2208) 9 MG/DL CREATININE (test code = 2214) 0.58 MG/DL eGFR (2020 CKD-EPI) (test code = 21193) 130 ML/MIN/1.73 CALC BUN/CREAT (test code = [...] (test code = 2219) 17 U/L Toñito KeeneCOMPREHENSIVE METABOLIC [id number] 00:00:00* Test Item Value Reference Range Interpretation Comme nts GLUCOSE (test code = 2217) 94 MG/DL BUN (test code = 2208) 9 MG/DL CREATININE (test code = 2214) 0.58 MG/DL eGFR (2020 CKD-EPI) (test code = 36644) 130 ML/MIN/1.73 CALC BUN/CREAT (test code = [...] code = 2219) 17 U/L Toñito F AustinCOMPREHENSIVE METABOLIC [id number] 00:00:00* Test Item Value Reference Range Interpretation Comme nts GLUCOSE (test code = 2217) 94 MG/DL BUN (test code = 2208) 9 MG/DL CREATININE (test code = 2214) 0.58 MG/DL eGFR (2020 CKD-EPI) (test code = 73249) 130 ML/MIN/1.73 CALC BUN/CREAT (test code = [...] code = 2219) 17 U/L Toñito F AustinCOMPREHENSIVE METABOLIC [id number] 00:00:00* Test Item Value Reference Range Interpretation Comme nts GLUCOSE (test code = 2217) 94 MG/DL BUN (test code = 2208) 9 MG/DL CREATININE (test code = 2214) 0.58 MG/DL eGFR (2020 CKD-EPI) (test code = 52988) 130 ML/MIN/1.73 CALC BUN/CREAT (test code = [...] 2219) 17 U/L Toñito F AustinCT/NG, NAAT, [id number] 00:06:35* Test Item Value Reference Range Interpretation Comme nts CHLAMYDIA, NAAT, URINE (test code = 13215) NEGATIVE NEGATIVE Testing is perfo rmed with [employer] 6800/8800 systems usingreal-time polymerase chain reaction (PCR) method. Testing is performed with [employer] 6800/8800 systems usingreal-time polymerase chain reaction (PCR) method. A negative result does not exclude low level infection, specimensampling error, or collection error. GONORRHEA, NAAT, URINE (test code = 36230) NEGATIVE NEGATIVE Testing is perfo rmed with [employer] 6800/8800 systems usingreal-time polymerase chain reaction (PCR) method. Testing is performed with [employer] 6800/8800 systems usingreal-time polymerase chain reaction (PCR) method. A negative result does not exclude low level infection, specimensampling error, or collection error. CT/NG, TMA, [id number] 00:00:00* Test Item Value Reference Range Interpretation Comme nts CHLAMYDIA, NAAT, URINE (test code = 46062) NEGATIVE GONORRHEA, NAAT, URINE (test code = 22922) NEGATIVE Toñito F AustinCT/NG, TMA, [id number] 00:00:00* Test Item Value Reference Range Interpretation Comme nts CHLAMYDIA, NAAT, URINE (test code = 64061) NEGATIVE GONORRHEA, NAAT, URINE (test code = 49196) NEGATIVE Toñito F AustinCT/NG, TMA, [id number] 00:00:00* Test Item Value Reference Range Interpretation Comme nts CHLAMYDIA, NAAT, URINE (test code = 69307) NEGATIVE GONORRHEA, NAAT, URINE (test code = 45515) NEGATIVE Toñito Jon AustinCT/NG, TMA, [id number] 00:00:00* Test Item Value Reference Range Interpretation Comme nts CHLAMYDIA, NAAT, URINE (test code = 42880) NEGATIVE GONORRHEA, NAAT, URINE (test code = 28624) NEGATIVE Toñito KeeneHERPES SIMPLEX AB, [id number] 12:00:15* Test Item Value Reference Range Interpretation Comme nts HERPES SIMPLEX AB, IgM (test code = 67521) 1.28 INDEX SEE BELOW H IMPORTANT NOTE: HSV IgM ASSAYS ARE NOT TYPE-SPECIFIC. THE BIOLOGICALIgM RESPONSE WITH PRIMARY INFECTIONS IS VARIABLE AND MAY BEUNDETECTABLE; WITH RECURRENT INFECTIONS IgM MAY OR MAY NOT BEDETECTED. FALSE POSITIVE RESULTS UNRELATED TO HSV INFECTION CAN OCCURWITH HSV IgM ASSAYS. ALL RESULTS SHOULD BE REVIEWED IN CLINICALCONTEXT, AND COMPARISON TO ACUTE OR CONVALESCENT TYPE-SPECIFIC [id number] HSV2 IgG ASSAYS SHOULD BE CONSIDERED. INTERPRETATION UNITS RANGE ----- ----- NEGATIVE INDEX <=0.89 EQUIVOCAL INDEX 0.90-1.09 POSITIVE INDEX >=1.10 HERPES SIMPLEX [id number] 00:00:00* Test Item Value Reference Range Interpretation Comme nts HERPES SIMPLEX AB, IgM (test code = 53352) 1.28 INDEX Toñito KeeneHERPES SIMPLEX [id number] 00:00:00* Test Item Value Reference Range Interpretation Comme nts HERPES SIMPLEX AB, IgM (test code = 52104) 1.28 INDEX Toñito Jon AustinHERPES SIMPLEX [id number] 00:00:00* Test Item Value Reference Range Interpretation Comme nts HERPES SIMPLEX AB, IgM (test code = 06003) 1.28 INDEX Toñito KeeneHERPES SIMPLEX [id number] 00:00:00* Test Item Value Reference Range Interpretation Comme nts HERPES SIMPLEX AB, IgM (test code = 12289) 1.28 INDEX Toñito KeeneCULTURE, [id number] 16:44:36SPECIMEN NUMBER: [id number] CULTURE, URINE SPECIMEN NUMBER: [id number] SPECIMEN COMMENT: URINE SOURCE: URINE REPORT STATUS: FINAL FINAL REPORT: 09/26/2022 10-50,000 CFU/ML UROGENITAL JUN PRESENT NO COMMON PATHOGENSCULTURE, [id number] 00:00:00* Test Item Value Reference Range Interpretation Comme nts CULTURE, URINE (test code = 51995) SPECIMEN NUMBER: [id number] Toñito Jon AustinCULTURE, [id number] 00:00:00* Test Item Value Reference Range Interpretation Comme nts CULTURE, URINE (test code = 98535) SPECIMEN NUMBER: [id number] Toñito KeeneCULTURE, [id number] 00:00:00* Test Item Value Reference Range Interpretation Comme nts CULTURE, URINE (test code = 69148) SPECIMEN NUMBER: [id number] Toñito KeeneCULTURE, [id number] 00:00:00* Test Item Value Reference Range Interpretation Comme nts CULTURE, URINE (test code = 24225) SPECIMEN NUMBER: [id number] Toñito [id number] 07:06:36* Test Item Value Reference Range Interpretation Comme will PROLACTIN (test code = 2800) 24.4 NG/ML 5.0-37.0 NOTE: Methodolog y is [employer] Electrochemiluminescence Immunoassay (ECLIA). Values obtained with different assays/manufacturers cannot be used interchangeably. Results should not be used as sole basis to establish the presence or absence of malignancy. [id number] 07:06:36* Test Item Value Reference Range Interpretation Comme will FERRITIN (test code = 2075) 4 NG/ML 13-200 L FSH + LH [id number] 07:06:36* Test Item Value Reference Range Interpretation [...] 1.0-11.4 IU/L POSTMENOPAUSAL 7.7-58.5 IU/L TSH, THIRD [id number] 07:06:36* Test Item Value Reference Range Interpretation [facility] TSH, THIRD GENERATION (test code = 2821) 1.320 UIU/ML 0.400-4.100 DHEA [id number] 07:00:38* Test Item Value Reference Range Interpretation [facility] DHEA SULFATE (test code = 4225) 95 UG/DL 148-407 L [id number] 07:00:38* Test Item Value Reference Range Interpretation [facility] TESTOSTERONE (test code = 2830) <12 NG/DL See_Comment NOTE: TOTAL TESTOSTERONE ASSAY SENSITIVITY IS 12 NG/DL. TO DETERMINE NORMAL VS. SUBNORMAL TESTOSTERONE IN CHILDREN AND WOMEN, CONSIDER TESTING WITH ULTRASENSITIVE TESTOSTERONE. [Automated message] The system which generated this result transmitted reference range: <=55. The reference range was not used to interpret this result as normal/abnormal. HERPES SIMPLEX 1/2 AB, IgG [id number] 06:06:48* Test Item Value Reference Range Interpretation [facility] HERPES SIMPLEX 1 AB, IgG (test code = 90743) 6.410 INDEX SEE BELOW H INTERPRETATION U NITS RANGE ----- ----- NON-REACTIVE INDEX <1.000 REACTIVE INDEX >=1.000 HERPES SIMPLEX 2 AB, IgG (test code = 53053) 0.066 INDEX SEE BELOW INTERPRETATION U NITS RANGE ----- ----- NON-REACTIVE INDEX <1.000 REACTIVE INDEX >=1.000 HIV 1/2 4TH GEN, RFLX [id number] 06:06:48* Test Item Value Reference Range Interpretation Comme [facility] HIV 1/2 4TH GEN, RFLX CONF ( test code = 3514) NON-REACTIVE NON-REACTIVE HEPATITIS PANEL, [id number] 06:06:48* Test Item Value Reference Range Interpretation Comme nts HEPATITIS A IgM (test code = 56975) NON-REACTIVE NON-REACTIVE HEPATITIS B CORE IgM (test code = 4644) NON-REACTIVE NON-REACTIVE HEPATITIS B SURF AG (test code = 2739) NON-REACTIVE NON-REACTIVE HEPATITIS C ANTIBODY (test code = 4675) NON-REACTIVE NON-REACTIVE INTERPRETATION HEPATITIS A: (test code = 2552) (NOTE) Hepatitis A serology shows no evidence of acute hepatitis A. INTERPRETATION HEPATITIS B: (test code = 24402) (NOTE) Hepatitis B serology shows no evidence of acute hepatitis B andno indication of exposure to hepatitis B virus in the previous florencia eight months. INTERPRETATION HEPATITIS C: (test code = 16035) (NOTE) Hepatitis C serology shows no evidence of exposure to hepatitisC virus at this time. It can take up to 12 months after exposure tothe hepatitis C virus for antibodies to become detectable in the blood in certain patients. [id number] 05:38:25* Test Item Value Reference Range Interpretation Comme nts RPR RESULT (test code = 3501) NON-REACTIVE NON-REACTIVE RPR TITER (test code = 3500) NOT INDIC. TITER NOT INDIC. CBC W/AUTO DIFF WITH [id number] 04:19:59* Test Item Value Reference Range Interpretation [...] 0.00-0.10 ABS NUCLEATED RBCS (test code = 85034) 0.00 K/UL 0.00-0.11 RETICULOCYTE WITH [id number] 04:19:59* Test Item Value Reference Range Interpretation Comme nts RETICULOCYTE COUNT (test code = 1018) 1.63 % 0.80-2.40 ABSOLUTE RETICULOCYTE (test code = 42010) 71.6 K/UL 32.0-105.0 [facility] has important pathology staff changes effective 09/08/2022. New pathology staff will provide uninterrupted, excellent patient care and clinical consultation. See URL: [email or web address]. UNLESS OTHERWISE INDICATED, ALL TESTING PERFORMED AT [facility] [address] [place] [address] PROCUREMENT PROFESSIONAL LOGISTICS: TULIO WILLIAM M.D. CLIA NUMBER [id number] [facility] [place]. [id number] 00:00:00* Test Item Value Reference Range Interpretation Comme nts RPR RESULT (test code = 3501) NON-REACTIVE RPR TITER (test code = 3500) NOT INDIC. TITER Toñito KeeneACUTE HEPATITIS [id number] 00:00:00* Test Item Value Reference Range Interpretation Comme nts HEPATITIS A IgM (test code = 18548) NON-REACTIVE HEPATITIS B CORE IgM (test c ode = 4608) NON-REACTIVE HEPATITIS B SURF AG (test co de = 5780) NON-REACTIVE HEPATITIS C ANTIBODY (test c ode = 2374) NON-REACTIVE INTERPRETATION HEPATITIS A: (test code = 2552) (NOTE) INTERPRETATION HEPATITIS B: (test code = 80997) (NOTE) INTERPRETATION HEPATITIS C: (test code = 09643) (NOTE) Toñito KeeneFSH + LH [id number] 00:00:00* Test Item Value Reference Range Interpretation Comme nts FOLLICLE STIM HORMONE (test code = 2700) 7.5 IU/L LUTEINIZING HORMONE (test co de = 2776) 5.2 IU/L Toñito KeeneTSH, THIRD [id number] 00:00:00* Test Item Value Reference Range Interpretation Comme nts TSH, THIRD GENERATION (test code = 2821) 1.320 UIU/ML Toñito [id number] 00:00:00* Test Item Value Reference Range Interpretation Comme nts TESTOSTERONE (test code = 2830) <12 NG/DL Toñito [id number] 00:00:00* Test Item Value Reference Range Interpretation Comme nts PROLACTIN (test code = 2800) 24.4 NG/ML Toñito KeeneDHEA [id number] 00:00:00* Test Item Value Reference Range Interpretation Comme nts DHEA SULFATE (test code = 4225) 95 UG/DL Toñito KeeneCBC W/AUTO [id number] 00:00:00* Test Item Value Reference Range Interpretation [...] ABS NUCLEATED RBCS (test cod e = 25152) 0.00 K/UL Toñito [id number] 00:00:00* Test Item Value Reference Range Interpretation Comme nts FERRITIN (test code = 2075) 4 NG/ML Toñito KeeneHERPES SIMPLEX 1/2 [id number] 00:00:00* Test Item Value Reference Range Interpretation Comme nts HERPES SIMPLEX 1 AB, IgG (te st code = 53296) 6.410 INDEX HERPES SIMPLEX 2 AB, IgG (te st code = 64750) 0.066 INDEX Toñito KeeneRETICULOCYTE WITH [id number] 00:00:00* Test Item Value Reference Range Interpretation Comme nts RETICULOCYTE COUNT (test cod e = 1018) 1.63 % ABSOLUTE RETICULOCYTE (test code = 17226) 71.6 K/UL Toñito Jon AustinHIV 1/2 4TH GEN, RFLX [id number] 00:00:00* Test Item Value Reference Range Interpretation Comme nts HIV 1/2 4TH GEN, RFLX CONF ( test code = 3514) NON-REACTIVE Toñito [id number] 00:00:00* Test Item Value Reference Range Interpretation Comme nts RPR RESULT (test code = 3501) NON-REACTIVE RPR TITER (test code = 3500) NOT INDIC. TITER Toñito KeeneACUTE HEPATITIS [id number] 00:00:00* Test Item Value Reference Range Interpretation Comme nts HEPATITIS A IgM (test code = 83002) NON-REACTIVE HEPATITIS B CORE IgM (test c ode = 4644) NON-REACTIVE HEPATITIS B SURF AG (test co de = 7999) NON-REACTIVE HEPATITIS C ANTIBODY (test c ode = 8026) NON-REACTIVE INTERPRETATION HEPATITIS A: (test code = 2552) (NOTE) INTERPRETATION HEPATITIS B: (test code = 07752) (NOTE) INTERPRETATION HEPATITIS C: (test code = 97977) (NOTE) Toñito KeeneFSH + LH [id number] 00:00:00* Test Item Value Reference Range Interpretation Comme nts FOLLICLE STIM HORMONE (test code = 2700) 7.5 IU/L LUTEINIZING HORMONE (test co de = 2776) 5.2 IU/L Toñito KeeneTSH, THIRD [id number] 00:00:00* Test Item Value Reference Range Interpretation Comme nts TSH, THIRD GENERATION (test code = 2821) 1.320 UIU/ML Toñito [id number] 00:00:00* Test Item Value Reference Range Interpretation Comme nts TESTOSTERONE (test code = 2830) <12 NG/DL Toñito [id number] 00:00:00* Test Item Value Reference Range Interpretation Comme nts PROLACTIN (test code = 2800) 24.4 NG/ML Toñito KeeneDHEA [id number] 00:00:00* Test Item Value Reference Range Interpretation Comme nts DHEA SULFATE (test code = 4225) 95 UG/DL Toñito KeeneCBC W/AUTO [id number] 00:00:00* Test Item Value Reference Range Interpretation [...] ABS NUCLEATED RBCS (test cod e = 03896) 0.00 K/UL Toñito [id number] 00:00:00* Test Item Value Reference Range Interpretation Comme nts FERRITIN (test code = 2075) 4 NG/ML Toñito KeeneHERPES SIMPLEX 1/2 [id number] 00:00:00* Test Item Value Reference Range Interpretation Comme nts HERPES SIMPLEX 1 AB, IgG (te st code = 36350) 6.410 INDEX HERPES SIMPLEX 2 AB, IgG (te st code = 52957) 0.066 INDEX Toñito KeeneRETICULOCYTE WITH [id number] 00:00:00* Test Item Value Reference Range Interpretation Comme nts RETICULOCYTE COUNT (test cod e = 1018) 1.63 % ABSOLUTE RETICULOCYTE (test code = 10416) 71.6 K/UL Toñito KeeneHIV 1/2 4TH GEN, RFLX [id number] 00:00:00* Test Item Value Reference Range Interpretation Comme nts HIV 1/2 4TH GEN, RFLX CONF ( test code = 3514) NON-REACTIVE Toñito [id number] 00:00:00* Test Item Value Reference Range Interpretation Comme nts RPR RESULT (test code = 3501) NON-REACTIVE RPR TITER (test code = 3500) NOT INDIC. TITER Toñito KeeneACUTE HEPATITIS [id number] 00:00:00* Test Item Value Reference Range Interpretation Comme nts HEPATITIS A IgM (test code = 56763) NON-REACTIVE HEPATITIS B CORE IgM (test c ode = 4644) NON-REACTIVE HEPATITIS B SURF AG (test co de = 1974) NON-REACTIVE HEPATITIS C ANTIBODY (test c ode = 5575) NON-REACTIVE INTERPRETATION HEPATITIS A: (test code = 2552) (NOTE) INTERPRETATION HEPATITIS B: (test code = 54782) (NOTE) INTERPRETATION HEPATITIS C: (test code = 35674) (NOTE) Toñito KeeneFSH + LH [id number] 00:00:00* Test Item Value Reference Range Interpretation Comme nts FOLLICLE STIM HORMONE (test code = 2700) 7.5 IU/L LUTEINIZING HORMONE (test co de = 2776) 5.2 IU/L Toñito KeeneTSH, THIRD [id number] 00:00:00* Test Item Value Reference Range Interpretation Comme nts TSH, THIRD GENERATION (test code = 2821) 1.320 UIU/ML Toñito K[id number] 00:00:00* Test Item Value Reference Range Interpretation Comme nts TESTOSTERONE (test code = 2830) <12 NG/DL Toñito [id number] 00:00:00* Test Item Value Reference Range Interpretation Comme nts PROLACTIN (test code = 2800) 24.4 NG/ML Toñito KeeneDHEA [id number] 00:00:00* Test Item Value Reference Range Interpretation Comme nts DHEA SULFATE (test code = 4225) 95 UG/DL Toñito KeeneCBC W/AUTO [id number] 00:00:00* Test Item Value Reference Range Interpretation [...] ABS NUCLEATED RBCS (test cod e = 27129) 0.00 K/UL Toñito [id number] 00:00:00* Test Item Value Reference Range Interpretation Comme nts FERRITIN (test code = 2075) 4 NG/ML Toñito KeeneHERPES SIMPLEX 1/2 [id number] 00:00:00* Test Item Value Reference Range Interpretation Comme nts HERPES SIMPLEX 1 AB, IgG (te st code = 13139) 6.410 INDEX HERPES SIMPLEX 2 AB, IgG (te st code = 09482) 0.066 INDEX Toñito KeeneRETICULOCYTE WITH [id number] 00:00:00* Test Item Value Reference Range Interpretation Comme nts RETICULOCYTE COUNT (test cod e = 1018) 1.63 % ABSOLUTE RETICULOCYTE (test code = 05186) 71.6 K/UL Toñito KeeneHIV 1/2 4TH GEN, RFLX [id number] 00:00:00* Test Item Value Reference Range Interpretation Comme nts HIV 1/2 4TH GEN, RFLX CONF ( test code = 3514) NON-REACTIVE Toñito KeeneYwqrsaVQW2550-09-39 00:00:00* Test Item Value Reference Range Interpretation Comme nts RPR RESULT (test code = 3501) NON-REACTIVE RPR TITER (test code = 3500) NOT INDIC. TITER Toñito KeeneACUTE HEPATITIS [id number] 00:00:00* Test Item Value Reference Range Interpretation Comme nts HEPATITIS A IgM (test code = 99430) NON-REACTIVE HEPATITIS B CORE IgM (test c ode = 4644) NON-REACTIVE HEPATITIS B SURF AG (test co de = 7009) NON-REACTIVE HEPATITIS C ANTIBODY (test c ode = 0864) NON-REACTIVE INTERPRETATION HEPATITIS A: (test code = 2552) (NOTE) INTERPRETATION HEPATITIS B: (test code = 44764) (NOTE) INTERPRETATION HEPATITIS C: (test code = 05677) (NOTE) Toñito KeeneFSH + LH [id number] 00:00:00* Test Item Value Reference Range Interpretation Comme nts FOLLICLE STIM HORMONE (test code = 2700) 7.5 IU/L LUTEINIZING HORMONE (test co de = 2776) 5.2 IU/L Toñito KeeneTSH, THIRD [id number] 00:00:00* Test Item Value Reference Range Interpretation Comme nts TSH, THIRD GENERATION (test code = 2821) 1.320 UIU/ML Toñito [id number] 00:00:00* Test Item Value Reference Range Interpretation Comme nts TESTOSTERONE (test code = 2830) <12 NG/DL Toñito [id number] 00:00:00* Test Item Value Reference Range Interpretation Comme nts PROLACTIN (test code = 2800) 24.4 NG/ML Toñito KeeneDHEA [id number] 00:00:00* Test Item Value Reference Range Interpretation Comme nts DHEA SULFATE (test code = 4225) 95 UG/DL Toñito KeeneCBC W/AUTO [id number] 00:00:00* Test Item Value Reference Range Interpretation [...] ABS NUCLEATED RBCS (test cod e = 85679) 0.00 K/UL Toñito [id number] 00:00:00* Test Item Value Reference Range Interpretation Comme nts FERRITIN (test code = 2075) 4 NG/ML Toñito KeeneHERPES SIMPLEX 1/2 [id number] 00:00:00* Test Item Value Reference Range Interpretation Comme nts HERPES SIMPLEX 1 AB, IgG (te st code = 30735) 6.410 INDEX HERPES SIMPLEX 2 AB, IgG (te st code = 84096) 0.066 INDEX Toñito KeeneRETICULOCYTE WITH [id number] 00:00:00* Test Item Value Reference Range Interpretation Comme nts RETICULOCYTE COUNT (test cod e = 1018) 1.63 % ABSOLUTE RETICULOCYTE (test code = 39588) 71.6 K/UL Toñito Jon AustinHIV 1/2 4TH GEN, RFLX [id number] 00:00:00* Test Item Value Reference Range Interpretation Comme nts HIV 1/2 4TH GEN, RFLX CONF ( test code = 3514) NON-REACTIVE Toñito KeeneCOMP. METABOLIC PANEL (68310)2022-06-13 01:42:11* Test Item Value Reference Range Interpretation Comme nts NA (test code = 8584939837) 141 mmol/L 135-145 K (test code = 8974075469) 4.3 mmol/L 3.5-5.0 CL (test code = 3925567424) 105 mmol/L 98-108 CO2 TOTAL (test code = 5696729852) 26 mmol/L 23-31 AGAP (test code = 4766677891) 2-16 BUN (test code = 6748853172) 8 mg/dL 7-23 GLUCOSE (test code = 3231207588) 103 mg/dL 70-110 CREATININE (test code = 5509842894) 0.54 mg/dL 0.50-1.04 TOTAL BILI (test code = 3097368725) 0.9 mg/dL 0.1-1.1 CALCIUM (test code = 8737255327) 9.5 mg/dL 8.6-10.6 T PROTEIN (test code = 3535483876) 7.7 g/dL 6.3-8.2 ALBUMIN (test code = 1009791501) 4.8 g/dL 3.5-5.0 ALK PHOS (test code = 1168712437) 79 U/L 34-122 ALTv (test code = 1742-6) 18 U/L 5-35 AST(SGOT) (test code = 6725593149) 21 U/L 13-40 eGFR (test code = 8930270814) mL/min/1.73m2 CHRISTINA (test code = CHRISTINA) Association [...] or urine or abnormalities in imaging tests). [facility] WITH [id number] 01:27:50* Test Item Value Reference Range Interpretation Comme nts WBC (test code = 6690-2) See_Comment [[employer]ated [employer] The system which generated this result transmitted reference range: 4.30 - 11.10 10*3/?L. The reference range was not used to interpret this result as normal/abnormal. RBC (test code = 789-8) See_Comment [[employer]ated [employer] The system which generated this result transmitted [...] 31.6 g/dL 31.6-35.1 RDW-SD (test code = 44551-9) 45.0 fL 39.0-49.9 RDW-CV (test code = 788-0) 14.2 % 12.0-15.5 PLT (test code = 777-3) See_Comment [[employer] The system which generated this result transmitted reference range: 166 - 358 10*3/?L. The reference range was not used to interpret this result as normal/abnormal. MPV (test code = 34092-8) 10.8 fL 9.5-12.9 NRBC/100 WBC (test code = 9775041955) See_Comment [[employer]] The system which generated this result transmitted reference range: 0.0 - 10.0 /100 WBCs. The reference range was not used to interpret this result as normal/abnormal. NRBC x10^3 (test code = 5823305331) See_Comment [Automated [employer]] The system which generated this result transmitted reference range: 10*3/?L. The reference range was not used to interpret this result as normal/abnormal. GRAN MAT (NEUT) % (test code = 770-8) 76.4 % IMM GRAN % (test code = 0633153684) 0.20 % LYMPH % (test code = 736-9) 15.5 % MONO % (test code = 5905-5) 5.8 % EOS % (test code = 713-8) 1.7 % BASO % (test code = 706-2) 0.4 % GRAN MAT x10^3(ANC) (test code = 4677097962) 7.09 10*3/uL 1.88-7.09 IMM GRAN x10^3 (test code = 4757230164) 0.00-0.06 LYMPH x10^3 (test code = 731-0) 1.44 10*3/uL 1.32-3.29 MONO x10^3 (test code = 742-7) 0.54 10*3/uL 0.33-0.92 EOS x10^3 (test code = 711-2) 0.16 10*3/uL 0.03-0.39 BASO x10^3 (test code = 704-7) 0.04 10*3/uL 0.01-0.07 [id number] 01:07:00* Test Item Value Reference Range Interpretation Comme nts POCT PREG (test code = 1605) negative Lab Interpretation (test cod e = 92122-8) Normal [facility] (COVID-19) by RT-PCR (HIGH RISK) 2020-02-20 00:00:00* Test Item Value Reference Range Interpretation Comme nts SARS-CoV-2 INTERPRETATION (t est code = 60403) POSITIVE SOURCE (test code = 78470) NOT SPECIFIED Toñito KeeneSARS-CoV-2 (COVID-19) by RT-PCR (HIGH RISK)2020-02-20 00:00:00* Test Item Value Reference Range Interpretation Comme nts SARS-CoV-2 INTERPRETATION (t est code = 59237) POSITIVE SOURCE (test code = 88033) NOT SPECIFIED Toñito KeeneSARS-CoV-2 (COVID-19) by RT-PCR (HIGH RISK)2020-02-20 00:00:00* Test Item Value Reference Range Interpretation Comme nts SARS-CoV-2 INTERPRETATION (t est code = 35999) POSITIVE SOURCE (test code = 12497) NOT SPECIFIED Toñito KeeneSARS-CoV-2 (COVID-19) by RT-PCR (HIGH RISK)2020-02-20 00:00:00* Test Item Value Reference Range Interpretation Comme nts SARS-CoV-2 INTERPRETATION (t est code = 34403) POSITIVE SOURCE (test code = 94668) NOT SPECIFIED Toñito Keene Notes Date/Time Note [facility]:00:00 Toñito Jodie [facility]2024-09-25 00:00:00 [facility]2024-07-01 00:00:00 [facility]2023-12-26 04:12:16 Awake, alert oriented X4, respiratory even and unlabored,skin w/d color appropriate for race, moves all ext well, pt encouraged to follow up with pcp and or return as needed Pt given printed and verbal discharge instructions regarding Abdominal pain,Diarrhea,Urinary tract infection,Dysmenorrhea , patient verbralized understanding and signature obtained, patient denies any other concerns. Prescriptions provided Discussed antibiotic therapy and to take until all completed unless adverse reaction occurs - if occurs, discontinue medication and follow up with pcp/seek medical attention Advised to seek medical attention for new/prolonged/worsening of symptoms, No adverse reaction to meds given in ER noted upon discharge [facility]2023-12-26 01:13:54 C/O LLQ pain that happens every month when she is on her menstrual cycle. Pt states menstrual cycle started 07/02/2023. Pt states now she having diarrhea X7 today and feels dizzy. [facility]"
[2024-09-17 16:23] LABS: Absolute Eosinophils 0.3 K/uL (0-0.5); Absolute Lymphocytes (CBC) 1.1 K/uL (0.7-4.9); Absolute Monocytes 0.5 K/uL (0.1-1.3); Absolute Neutrophil 9.8 K/uL (1.8-8.0); Basophils % 0.4 % (0-1.3); Eosinophils % 2.6 % (0-4.4); Hematocrit 41.4 % (36.0-45.0); Hemoglobin 14.3 g/dL (12.0-15.0); Lymphocytes % 9.7 % (15.3-44.8); MCH 30.4 pg (27.0-35.0); MCHC 34.5 g/dL (32.0-36.0); MCV 88.1 fL (80-100); MPV 8.7 fL (7.6-11.3); Monocytes % 4.1 % (3.3-12.3); Neutrophils % 83.2 % (41.7-73.7); Platelets 242 thou/uL (152-406); Red Cell Distribution Width 12.8 % (12.1-15.2)
[2024-09-17 16:26] LABS: Specific Gravity 1.026 (1.005-1.030); Sqamous Epithelial <5 /HPF (None Seen); Urine Bacteria <20 /HPF (<20); Urine Bilirubin NEGATIVE (Negative); Urine Blood 3+ (Negative); Urine Clarity Extremely Turbid (Clear); Urine Color Light-Orange (Yellow); Urine Crystals Unidentified Few /HPF (None Seen); Urine Culture Reflex Order REFLEXED; Urine Glucose NEGATIVE (Negative); Urine Ketones NEGATIVE (Negative); Urine Micro Reflex YN NO BILL MICROSCOPIC; Urine Mucus Slight /HPF (None Seen); Urine Nitrite NEGATIVE (Negative); Urine Protein 1+ (Negative); Urine RBC >50 /HPF (None Seen); Urine Urobilinogen Normal (Normal); Urine WBC 20-50 /HPF (<5); Urine WBC Clump Rare /HPF (None Seen); Urine Yeast (Budding) Trace /HPF (None Seen); Urine pH 6.5 (5.0-7.0)
[2024-09-17 16:40] LABS: Albumin 3.9 g/dL (3.4-5.0); Albumin/Globulin Ratio 1.1 (1.1-1.8); Anion Gap 8.8 mEq/L (5.0-15.0); Bilirubin Total 0.8 mg/dL (0.2-1.0); Globulin 3.7 g/dL (2.3-3.5); Potassium 3.8 mEq/L (3.5-5.1); Protein, Total 7.6 g/dL (6.4-8.2)
--- NOTE | 2024-09-17 17:43 | RAD REPORT ---
EXAMINATION: CT ABDOMEN AND PELVIS WITH CONTRAST CLINICAL INDICATION: Abdominal pain TECHNIQUE: CT abdomen and pelvis was performed, after the administration of 100 cc Isovue-300.. Sagit sita and coronal reconstructions were obtained. One or more of the following dose reduction techniques were used: Automated exposure control, adjustment of the mA and kV according to patient si ze, and iterative reconstruction. Unless otherwise specified, incidental findings do not require dedicated imaging follow-up. [id number]. Oral contrast was not given which limits evaluation of bowel and appendix. COMPARISON: .None FINDINGS: 2.3 cm enhancing lesion posterior segment right lobe of liver. This is not clearly seen on the prior exam. The spleen, pancreas, adrenals and kidneys are unremarkable. Borderline enlargement of the appendix. Increased density mid appendix is equivocal for an appendicol ith No stranding within the adjacent fat no adnexal mass No evidence of diverticulitis. Prominent low-density area fundus. : IMPRESSION: Prominent low-density area uterine fundus. It is uncertain if this represents dilated endometrium, fi broid or artifact. Endovaginal sonogram recommended. 2.3 cm enhancing lesion within the liver may represent a hemangioma. Ultrasound recommended. Borderline enlargement of the appendix may be a normal finding given no stranding within the adjacent fat. Early appendicitis is another consideration and should be correlated clinically
--- NOTE | 2024-09-17 20:46 | RAD REPORT ---
EXAMINATION: CT ABDOMEN AND PELVIS WITHOUT CONTRAST CLINICAL INDICATION: Abdominal pain TECHNIQUE: CT abdomen and pelvis was performed, as per department protocol.. Oral contrast given. IAx ial, sagittal and coronal reconstructions were obtained. One or more of the following dose reduction techniques were used: Automated exposure control, adjustment of the mA and/or kV according to the patient size, and/or iterative reconstruction. Unless otherwise specified, incidental findings do not require dedicated imaging follow-up. [id number]. COMPARISON: CT abdomen same date FINDINGS: Oral contrast was administered. The small bowel and cecum are well opacified the contrast. No significant contrast is present within the appendix. The appendix is borderline dilated. No strand ing within the adjacent fat. No free air. No abscess. No other significant change since CT earlier on the same date with IV contrast. IMPRESSION: Borderline enlargement of the appendix without significant oral contrast within it. No stranding with in the adjacent fat. These findings are indeterminate for early appendicitis
[2024-09-17] MEDS ORDERED: METOCLOPRAMIDE 10 MG/2mL INJ ONE (21:12)
[2024-09-17] MEDS ORDERED: NA CHLORIDE 0.9% 1,000 ML ONE (21:12)
[2024-09-17] MEDS ORDERED: KETOROLAC 30 MG/ML INJ ONE (21:12)
--- NOTE | 2024-09-17 21:15 | EDPHYS ---
Physician Documentation [facility] Name: Juliet Elena Age: 24 yrs Sex: Female : 2000 Arrival Date: 09/17/2024 Time: 15:11 Bed 5 Private MD: HANANE Physician Hayes Ortega HPI: 09/17 16:10 This 24 yrs old Female presents to ER via Ambulatory with complaints of cp Abdominal Pain, Dizziness, Nausea/Vomiting. 16:10 The patient presents with abdominal pain in the lower abdomen. Onset: The cp symptoms/episode began/occurred today. 16:10 Associated signs and symptoms: Pertinent positives: nausea and vomiting, vaginal cp bleeding, dizziness, Pertinent negatives: constipation, diarrhea, dysuria, fever, headache, hematuria. 16:10 The symptoms are described as constant. 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 - Infectious Disease History:: Denies. - Social history:: Smoking status: Patient denies any tobacco usage or history of. ROS: 16:15 Constitutional: Negative for body aches, chills, fever, poor PO intake, cp 16:15 Eyes: Negative for injury, pain, redness, and discharge, cp 16:15 ENT: Negative for drainage from ear(s), ear pain, sore throat, difficulty swallowing, difficulty handling secretions, 16:15 Respiratory: Negative for cough, shortness of breath, wheezing, 16:15 Abdomen/GI: Positive for abdominal pain, nausea, vomiting, of the suprapubic area and right lower quadrant, Negative for diarrhea, constipation, anorexia, 16:15 Back: Negative for pain at rest, pain with movement, radiated pain, 16:15 : Positive for vaginal bleeding, Negative for urinary symptoms, 16:15 Neuro: Positive for dizziness, Negative for altered mental status, headache, weakness, 16:15 All other systems are negative, Exam: 16:20 Constitutional: The patient appears in no acute distress, alert, awake, non-toxic, well cp developed, well nourished, uncomfortable, 16:20 Head/Face: Normocephalic, atraumatic. cp 16:20 Eyes: Periorbital structures: appear normal, Conjunctiva: normal, no exudate, no injection, Sclera: no appreciated abnormality, Lids and lashes: appear normal, bilaterally, 16:20 ENT: External ear(s): are unremarkable, Nose: is normal, Mouth: Lips: moist, Oral mucosa: moist, Posterior pharynx: Airway: no evidence of obstruction, patent, 16:20 Neck: ROM/movement: is normal, is supple, without pain, no range of motions limitations, 16:20 Chest/axilla: Inspection: normal, 16:20 Cardiovascular: Rate: normal, Rhythm: regular, 16:20 Respiratory: the patient does not display signs of respiratory distress, Respirations: normal, no use of accessory muscles, no retractions, labored breathing, is not present, Breath sounds: are clear throughout, no decreased breath sounds, no stridor, no wheezing, 16:20 Abdomen/GI: Inspection: abdomen appears normal, Bowel sounds: active, all quadrants, cp Palpation: soft, in all quadrants, moderate abdominal tenderness, in the suprapubic area and right lower quadrant, rebound tenderness, is not appreciated, involuntary guarding, is not appreciated, 16:20 Back: pain, is absent, ROM is normal, 16:20 Neuro: Orientation: to person, place \T\ time. Mentation: is normal, Vital Signs: 15:25 BP 133 / 92; Pulse 65; Resp 14; Temp 97.9(TE); Pulse Ox 100% on R/A; Weight 86.18 kg; ss Height 5 ft. 7 in. ; Pain 10/10; 18:01 BP 133 / 66; Pulse 74; Resp 16; Pulse Ox 100% ; ll1 19:37 BP 126 / 92; Pulse 78; Resp 16; Pulse Ox 100% ; vc1 20:30 BP 131 / 72; Pulse 74; Resp 18; Pulse Ox 100% ; cp4 21:30 BP 132 / 74; Pulse 64; Resp 18; Pulse Ox 100% ; cp4 22:30 BP 126 / 61; Pulse 78; Resp 18; Pulse Ox 99% ; cp4 22:30 BP 138 / 92; Pulse 89; Resp 18; Pulse Ox 100% ; cp4 23:59 BP 118 / 62; Pulse 79; Resp 18; Pulse Ox 100% ; cp4 15:25 Body Mass Index 29.76 (86.18 kg, 170.18 cm) ss 15:25 Pain Scale: Adult ss MDM: 15:27 Medical Screening Exam initiated cp 17:00 Differential diagnosis: appendicitis, Ectopic , Endometriosis, non-specific cp abd pain, Ovarian Torsion, Pelvic Inflammatory Disease, Pyelonephritis, Ureterolithiasis, urinary tract infection. 21:05 Data reviewed: vital signs, nurses notes, lab test result(s), radiologic studies, CT cp scan. 21:05 Management of patient was discussed with the following: Dog License Officer Supervisor: DR Holder will cp consult and wants patient npo and admitted to hospitalist services. no antibiotics at this time. 21:15 Management of patient was discussed with the following: Hospitalist: Elida Rivera [employer], cp will admit after discussion to hospitalist services. 21:15 I considered the following discharge prescriptions or medication management in the emergency department Medications were administered in the Emergency Department. See MAR. 21:15 Counseling: I had a detailed discussion with the patient and/or guardian regarding the historical points, exam findings, and any diagnostic results supporting the discharge/admit diagnosis, lab results, radiology results, the need for further work-up and treatment in the hospital. Response to treatment: the patient's symptoms have mildly improved after treatment. 09/17 16:05 Order name: CBC with Diff; Complete Time: 16:45 cp 09/17 16:05 Order name: CMP; Complete Time: 16:45 cp 09/17 16:05 Order name: Lipase; Complete Time: 16:45 cp 09/17 16:05 Order name: Urinalysis W/Microscopic; Complete Time: 16:45 cp 09/17 21:04 Interpretation: Normal except: [facility] Extremely Turbid; UBLD 3+; UPROT 1+; UESTR 75; UWBC cp 20-50; URBC >50; BYST Trace. 09/17 16:05 Order name: Test, Serum; Complete Time: 16:45 cp 09/17 16:33 Order name: Urine Culture EDNJ 09/17 22:41 Order name: Urinalysis w/ reflexes EDMS 09/17 22:41 Order name: Basic Metabolic Panel EDNJ 09/17 22:41 Order name: Basic Metabolic Panel EDNJ 09/17 22:41 Order name: CBC with Automated Diff EDNJ 09/17 22:41 Order name: CBC with Automated Diff EDNJ 09/17 22:41 Order name: Magnesium EDNJ 09/17 22:41 Order name: Magnesium EDNJ 09/17 16:46 Order name: CT Abd/Pelvis - IV Contrast Only; Complete Time: 17:47 cp 09/17 19:12 Order name: Abdomen ; Complete Time: 20:48 EDNJ 09/17 22:38 Order name: CONS Physician Consult EDNJ 09/17 16:05 Order name: IV Saline Lock; Complete Time: 16:18 cp 09/17 16:05 Order name: Labs collected and sent; Complete Time: 16:18 cp Administered Medications: 21:25 Drug: Ketorolac IVP 15 mg IVP once Route: IVP; Site: left antecubital; cp4 23:05 Follow up: Response: No adverse reaction cp4 21:25 Drug: NS 0.9% IV 1000 ml IV at 1000 ml once; to be given as a bolus over 60 minutes cp4 Route: IV; Rate: 1000 ml; Site: left antecubital; 23:05 Follow up: Response: No adverse reaction; IV Status: Completed infusion cp4 21:25 Drug: metoCLOPramide IVP 10 mg IVP once; over 1 to 2 minutes Route: IVP; Site: left 4 antecubital; 23:05 Follow up: Response: No adverse reaction cp4 Disposition Summary: 09/17/24 21:14 Hospitalization Ordered Notes: Hospitalization Status: Observation cp Provider: Tejal Kaur cp Location: Telemetry/[facility] (observation) cp Condition: Stable cp Problem: new cp Symptoms: have improved cp Bed/Room Type: Standard cp Room Assignment: 221(09/17/24 22:53) rv1 Diagnosis - Lower abdominal pain, unspecified - RLQ cp Forms: - Medication Reconciliation Form cp - SBAR form cp - Leadership Thank You Letter cp Addendum: 09/27/2024 16:23 Co-signature as Attending Physician, Hayes Ortega MD I agree with the assessment and c taylor plan of care. Signatures: Dispatcher [employer] Hayes Pate MD MD cha Blanchard, Shelby RN RN ss Hayes Bustos PA PA cp Villegas, Rebecca rv1 Estephania Renee cp4 Corrections: (The following items were deleted from the chart) 09/17 16:05 16:05 CBC+H.LAB.BRZ ordered. EDMS EDMS 16:05 16:05 COMPREHENSIVE METABOLIC PANEL+C.LAB.BRZ ordered. EDMS EDMS 16:05 16:05 LIPASE+C.LAB.BRZ ordered. EDMS EDMS 16:05 16:05 Urinalysis W/Microscopic+U.LAB.BRZ ordered. EDMS EDMS 16:05 16:05 TEST, SERUM+SC.LAB.BRZ ordered. EDMS EDMS 18:13 18:13 Abdomen Pelvis W Con+CT.RAD.BRZ ordered. EDMS EDMS 22:53 21:14 cp rv1
--- NOTE | 2024-09-17 21:15 | ER ---
Nurse's Notes [facility] Name: Juliet Elena Age: 24 yrs Sex: Female : 2000 Arrival Date: 09/17/2024 Time: 15:11 Bed 5 Private MD: Diagnosis: Lower abdominal pain, unspecified-RLQ Presentation: 09/17 15:25 Chief complaint: Patient states: Dizziness that began while at work today with N/V. Pt ss reports she is having Heavy period with moderate cramping. Pt reports + UPT Tuesday and Tuesday. Coronavirus screen: Client denies travel out of the [place] in the last 14 days. Ebola Screen: Patient denies exposure to infectious person. Patient denies travel to an Ebola-affected area in the 21 days before illness onset. Initial Sepsis Screen: Does the patient meet any 2 criteria? No. Patient's initial sepsis screen is negative. Does the patient have a suspected source of infection? No. Patient's initial sepsis screen is negative. Risk Assessment: Do you want to hurt yourself or someone else? Patient reports no desire to harm self or others. Note pt reports, "I took a Tylenol #3 at 1230 to help with the pain.". Onset of symptoms was September 16, 2024. 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 - Infectious Disease History:: Denies. - Social history:: Smoking status: Patient denies any tobacco usage or history of. Screenin:00 [facility] ED Fall Risk Assessment (Adult) History of falling in the last 3 months, vc1 including since admission No falls in past 3 months (0 pts) Confusion or Disorientation No (0 pts) Intoxicated or Sedated No (0 pts) Impaired Gait No (0 pts) Mobility Assist Device Used No (0 pt) Altered Elimination No (0 pt) Score/Fall Risk Level 0 - 2 = Low Risk Oriented to surroundings, Maintained a safe environment, Educated pt \\T\\ family on fall prevention, incl call for assistance when getting out of bed, Hourly rounding (assess needs \\T\\ fall precautionary measures) done. Abuse screen: Denies threats or abuse. Nutritional screening: No deficits noted. Tuberculosis screening: No symptoms or risk factors identified. Assessment: 17:55 General: Appears in no apparent distress. Behavior is calm, cooperative, appropriate ll1 for age. Pain: Complains of pain in pelvis Quality of pain is described as crampy. GI: Reports cramping, nausea, vomiting. : Reports vaginal bleeding that is moderate flow. 18:02 Reassessment: No changes from previously documented assessment. Patient and/or family ll1 updated on plan of care and expected duration. Pain level reassessed. Patient is alert, oriented x 3, equal unlabored respirations, skin warm/dry/pink. 18:38 Reassessment: done drinking oral contrast. ll1 19:00 General: Appears in no apparent distress. uncomfortable, well groomed, well developed, vc1 well nourished, Behavior is calm, cooperative, appropriate for age. Pain: Complains of pain in right lower quadrant and left lower quadrant and pelvis Pain does not radiate. Pain currently is 8 out of 10 on a pain scale. Quality of pain is described as sharp. Neuro: Level of Consciousness is awake, alert, obeys commands, Oriented to person, place, time, situation, Appropriate for age. Cardiovascular: Capillary refill < 3 seconds Patient's skin is warm and dry. Respiratory: Airway is patent Respiratory effort is even, unlabored, Respiratory pattern is regular, symmetrical, Breath sounds are clear bilaterally. GI: Bowel sounds present X 4 quads. Abd is soft Abdomen is tender to palpation in right lower quadrant and left lower quadrant. : Reports vaginal bleeding that is moderate flow. EENT: No deficits noted. No signs and/or symptoms were reported regarding the EENT system. Derm: Skin is intact, is healthy with good turgor, Skin is dry, Skin is normal, Skin temperature is warm. 19:00 Musculoskeletal: Circulation, motion, and sensation intact. Range of motion: intact in vc1 all extremities. 19:37 Reassessment: No changes from previously documented assessment. Patient and/or family vc1 updated on plan of care and expected duration. Pain level reassessed. Patient is alert, oriented x 3, equal unlabored respirations, skin warm/dry/pink. Vital Signs: 15:25 BP 133 / 92; Pulse 65; Resp 14; Temp 97.9(TE); Pulse Ox 100% on R/A; Weight 86.18 kg; ss Height 5 ft. 7 in. ; Pain 10/10; 18:01 BP 133 / 66; Pulse 74; Resp 16; Pulse Ox 100% ; ll1 19:37 BP 126 / 92; Pulse 78; Resp 16; Pulse Ox 100% ; vc1 20:30 BP 131 / 72; Pulse 74; Resp 18; Pulse Ox 100% ; cp4 21:30 BP 132 / 74; Pulse 64; Resp 18; Pulse Ox 100% ; cp4 22:30 BP 126 / 61; Pulse 78; Resp 18; Pulse Ox 99% ; cp4 22:30 BP 138 / 92; Pulse 89; Resp 18; Pulse Ox 100% ; cp4 23:59 BP 118 / 62; Pulse 79; Resp 18; Pulse Ox 100% ; cp4 15:25 Body Mass Index 29.76 (86.18 kg, 170.18 cm) ss 15:25 Pain Scale: Adult ss ED Course: 15:14 Patient arrived in ED. al6 15:14 Hayes Bustos PA is PHCP. cp 15:14 Hayes Ortega MD is Attending Physician. cp 15:27 Triage completed. ss 15:27 Arm band placed on right wrist. ss 16:18 Test, Serum Sent. bc6 16:18 Urinalysis W/Microscopic Sent. bc6 16:18 CBC with Diff Sent. bc6 16:18 CMP Sent. bc6 16:18 Lipase Sent. bc6 16:18 Initial lab(s) drawn, by hi, sent to lab. Urine collected: clean catch specimen, saw bc6 blood. Inserted saline lock: 20 gauge in left antecubital area, using aseptic technique. Blood collected. Flushed with 10 mL NS. 17:18 CT Abd/Pelvis - IV Contrast Only In Process Unspecified. EDMS 17:31 Candice Mg, RN is Primary Nurse. ll1 19:00 Patient has correct armband on for positive identification. Bed in low position. Call vc1 light in reach. Provided Education on: Oral contrast and CT. Pulse ox on. NIBP on. 20:26 Abdomen In Process Unspecified. EDMS 21:14 Tejal Kaur MD is Hospitalizing Provider. cp 23:04 No provider procedures requiring assistance completed. Patient admitted, IV remains in cp4 place. Administered Medications: 21:25 Drug: Ketorolac IVP 15 mg IVP once Route: IVP; Site: left antecubital; cp4 23:05 Follow up: Response: No adverse reaction cp4 21:25 Drug: NS 0.9% IV 1000 ml IV at 1000 ml once; to be given as a bolus over 60 minutes cp4 Route: IV; Rate: 1000 ml; Site: left antecubital; 23:05 Follow up: Response: No adverse reaction; IV Status: Completed infusion cp4 21:25 Drug: metoCLOPramide IVP 10 mg IVP once; over 1 to 2 minutes Route: IVP; Site: left cp4 antecubital; 23:05 Follow up: Response: No adverse reaction cp4 Medication: 20:19 VIS not applicable for this client. vc1 Outcome: 21:14 Decision to Hospitalize by Provider. cp 23:59 Admitted to Med/surg accompanied by tech, via wheelchair, room 221, with chart, cp4 23:59 Condition: stable 23:59 Instructed on the need for admit, 09/18 00:16 Patient left the ED. vc1 Signatures: Dispatcher [employer] EDMS Kalli Holcomb RN RN Hayes Cleary PA PA cp Lewis, Lynsay, RN RN ll1 Genesis Arias RN RN vc1 Alesha Antonio6 Estephania Renee cp4 Catherine Cano
--- NOTE | 2024-09-17 22:33 | P.HP ---
Certification for Inpatient Patient admitted to: Observation <Elida Rivera - Last Filed: 09/18/24 02:46> Patient History Date of Service: 09/18/24 Reason for admission: Appendicitis History of Present Illness: 24-year-old female with a past medical history of asthma, presents to the emergency room with abdominal pain. She reports associated nausea vomiting started yesterday. She reports abdominal pain is right lower quadrant, radiates to the left lower quadrant, she denies constipation, diarrhea, fever, recent infection. Laboratory evaluation leukocytosis 11.80, neutrophils 83.2, chemistry unremarkable, urinalysis mild leukocytosis 75, 3+ hematuria. CT shows acute early appendicitis, plan to admit for appendicitis with surgery to consult. - Past Medical/Surgical History -: Asthma Past Surgical History: Patient denies surgical history - Social History Smoking Status: Never smoker Alcohol use: No Place of Residence: Home <Elida Rivera - Last Filed: 09/18/24 02:46> Date of Service: 09/17/24 History of Present Illness: Chart has been reviewed. Events of the last 24 hours have been noted. Case discussed with ZURDO. I performed a substantial part of the MDM during this patient's care today. I personally made or approved the documented management plan and acknowledge its risk of complications. I agree with the findings and documentation provided in the ZURDO's notes <Tejal Kaur - Last Filed: 09/22/24 02:44> Allergies No Known Allergies Allergy (Unverified 09/25/17 21:54) Home Medications: Amox/Clavulanate [Augmentin 875-125 Tab] 1 tab PO BID 7 Days #14 tab 09/20/24 Codeine/APAP [Tylenol W/Codeine #3 tab] 1 tab PO Q6HP PRN #10 tab 09/20/24 Review of Systems 10-point ROS is otherwise unremarkable <Elida Rivera - Last Filed: 09/18/24 02:46> Physical Examination - Physical Exam General: Alert, In no apparent distress, Oriented x3 HEENT: Atraumatic, Normocephalic, PERRLA Neck: Supple, 2+ carotid pulse no bruit, JVD not distended Respiratory: Clear to auscultation bilaterally, Normal air movement Cardiovascular: No edema, Normal pulses, Regular rate/rhythm Capillary refill: <2 Seconds Gastrointestinal: Normal bowel sounds, Other (+rebound RLQ), Tenderness Musculoskeletal: No swelling, No contractures Integumentary: No breakdown, No significant lesion, No tenderness/swelling Neurological: Normal speech, Normal strength at 5/5 x4 extr, Normal tone - Studies Laboratory Data (last 24 hrs) 09/17/24 09/17/24 16:15 16:15 WBC 11.80 H Hgb 14.3 Hct 41.4 Plt Count 242 Sodium 138 Potassium 3.8 BUN 11 Creatinine 0.63 Glucose 115 H Total Bilirubin 0.8 AST 15 ALT 24 Alkaline Phosphatase 68 Lipase 30 <Elida Rivera - Last Filed: 09/18/24 02:46> Assessment and Plan - Problems (Diagnosis) (1) Appendicitis Status: Acute Qualifiers: Appendicitis type: unspecified Qualified Code(s): K37 - Unspecified appendicitis (2) Rebound tenderness Status: Acute (3) Nausea & vomiting Status: Acute (4) Acute cystitis with hematuria Status: Acute - Plan Admit to [facility] -Surgery to consult -N.p.o. for surgery to eval in the a.m. -IV fluids, IV antibiotics, as needed antiemetics -Albuterol nebs as needed -UA, trend urine culture -Trend WBCs -Trend electrolytes replace as needed Full code DVT SCDs Diet n.p.o. Disposition Home independent prior Discharge Plan: Home - Advance Directives Does patient have a Living Will: No Does patient have a Durable POA for Healthcare: No Critical Care: No Time Spent Managing Pts Care (In Minutes): 55 <Elida Rivera - Last Filed: 09/18/24 02:46> Date of Service: 09/18/24 Chart has been reviewed. Events of the last 24 hours have been noted. Case discussed with ZURDO. I performed a substantial part of the MDM during this patient's care today. I personally made or approved the documented management plan and acknowledge its risk of complications. I agree with the findings and documentation provided in the ZURDO's notes <Tejal Kaur - Last Filed: 09/22/24 02:44>
[2024-09-17] MEDS ORDERED: ALBUTEROL 2.5 MG/3 ML NEB SOL NEB PRN (22:40)
[2024-09-18] MEDS: NA CHLORIDE 0.9% 1,000 ML IV SCH (00:37)
[2024-09-18] MEDS: PIPER TAZO 3.375 GM in NA CHLORIDE 0.9% 100 ML IV SCH (00:37)
[2024-09-18 05:24] VITALS: BMI 29.6
[2024-09-18 05:26] LABS: Absolute Eosinophils 0.6 K/uL (0-0.5); Absolute Lymphocytes (CBC) 2.1 K/uL (0.7-4.9); Absolute Monocytes 0.7 K/uL (0.1-1.3); Absolute Neutrophil 4.4 K/uL (1.8-8.0); Basophils % 0.5 % (0-1.3); Eosinophils % 7.4 % (0-4.4); Hematocrit 37.3 % (36.0-45.0); Lymphocytes % 26.8 % (15.3-44.8); MCH 30.7 pg (27.0-35.0); MCHC 34.7 g/dL (32.0-36.0); MCV 88.4 fL (80-100); MPV 8.7 fL (7.6-11.3); Monocytes % 9.2 % (3.3-12.3); Neutrophils % 56.1 % (41.7-73.7); Platelets 212 thou/uL (152-406); RBC Red Blood Cell Count 4.22 M/uL (3.86-4.86); Red Cell Distribution Width 12.8 % (12.1-15.2)
[2024-09-18 05:35] LABS: Anion Gap 9.5 mEq/L (5.0-15.0); Magnesium 2.1 mg/dL (1.6-2.4); Potassium 3.5 mEq/L (3.5-5.1)
--- NOTE | 2024-09-18 09:05 | RAD REPORT ---
EXAMINATION: US Liver Only CLINICAL HISTORY: eval lesion seen on CT, ?hemangioma COMPARISON: CT abdomen and pelvis 09/17/2024 TECHNIQUE: Limited upper abdominal grayscale and color flow sonographic images. FINDINGS: Bile ducts: No intrahepatic biliary ductal dilation. Visualized aspects of the gallbladder are unrema rkable. Liver: Smooth contour, and normal in size measuring 16.3 cm in long axis. Diffuse parenchymal hyperec hogenicity suggesting steatosis. Subcapsular posterior right lobe ovoid 3.0 x 2.6 cm hypoechoic lesion with no increased vascularity, corresponding to the apparent enhancing abnormality on the prio r CT. No other suspicious focal lesions. Spleen: No focal abnormalities. Normal size and contour, measuring 9.8 cm in long axis. Fluid: No ascites. IMPRESSION: Diffuse hepatic steatosis. Subcapsular posterior right lobe 3.0 cm hypoechoic lesion, corresponding to the CT abnormality. The f indings favor focal fatty sparing, versus an atypical hemangioma, although other etiologies such as an adenoma may be possible. Liver protocol multiphasic MRI would be the preferred modality for furthe r imaging characterization.
--- NOTE | 2024-09-18 10:30 | P.PN ---
Date of Service: 09/18/24 Subjective: Feeling better No further nausea/vomiting Continues with lower abdominal pain Feels more like her usual crampy menstrual pain no longer having the dizziness, nausea/vomiting, chills that she had yesterday No new/worsening symptoms today ROS: 10 point ROS as noted above, otherwise negative Physical Exam: GEN: Alert, oriented, NAD CV: Regular rate and rhythm, no edema Pulm: Nonlabored respirations on room air, clear bilaterally ABD: soft, mild tenderness to palpation in RLQ and suprapubic region, nondistended Integumentary: No rashes Neuro: Normal speech, normal affect Problem List: Intractable nausea/vomiting, resolved Lower abdominal pain Possible acute early appendicitis 3cm Liver lesion, incidental CT finding on admission, presents with RLQ pain radiating to LLQ associated with nausea/v omiting. Denies diarrhea/constipation. CT abd/pelvis (09/17): Possible acute early appendicitis. 2.3 cm enhancing lesion within the liver. Prominent low-density area uterine fundus. liver u/s (09/18): Diffuse hepatic steatosis. 3.0 cm hypoechoic right liver lobe lesion. Possible focal fatty sparing vs atypical hemangioma vs adenoma. outpatient MRI for further eval recommended Dr. Holder, general surgeon consulted NPO for now until seen by surgery Surgery recommending repeat CT abd/pelvis without contrast to re-eval appendix UA with leuk est, WBCs, microscopic hematuria - likely effected by currently menstruating continue empiric zosyn (09/18-) continue IV fluids while NPO pain control Reports about a week ago she started to have some lower abdominal painwhich she points to suprapubic region as well having some lower back pain. She states the abdominal pain was enough discomfort to not want her to bend over and pick things up. It is typically unusual for her. She reports trying to get for the last 6 months or so with no luck. Since she was having some abdominal discomfort, as well as she had checked urine testing -she reports using 2 different tests and both were faintly positive. Code: Full Dispo: Home, ~24-48HRS Pending repeat CT, surgical recs Time Spent Managing Pts Care (In Minutes): 55
--- NOTE | 2024-09-18 12:12 | RAD REPORT ---
EXAMINATION: CT Abdomen Pelvis Wo Contrast CLINICAL INDICATION: Female, 24 years old. Abdominal pain. re-eval appendix now after contrast TECHNIQUE: CT abdomen and pelvis was performed, without IV contrast, as per department protocol. Axia l, sagittal and coronal reconstructions were obtained. One or more of the following dose reduction techniques were used: Automated exposure control, adjustment of the mA and kV according to the patien t size, and iterative reconstruction. Unless otherwise specified, incidental findings do not require dedicated imaging follow-up. COMPARISON: 09/17/2024 FINDINGS: The lack of intravenous contrast limits the sensitivity of this exam for evaluation of solid visceral organs, vascular structures, and retroperitoneum. LOWER CHEST: The visualized lung bases are clear. LIVER: Normal in size and contour. No focal lesion. BILIARY SYSTEM: Layering gallbladder mildly hyperdense sludge. No other suspicious abnormalities. SPLEEN: Normal size. No focal lesion. PANCREAS: No mass, ductal dilation, or sean-pancreatic fluid. ADRENALS: Normal; no mass. KIDNEYS AND URETERS: Normal size and contour. No hydronephrosis. URINARY BLADDER: Decompressed limiting evaluation. GASTROINTESTINAL TRACT: No evidence of bowel obstruction, significant free fluid, free air or abscess . APPENDIX: Patulous mid to distal appendix measuring up to 1 cm in caliber, with progressive luminal c ontrast opacification. No adjacent fat stranding, wall thickening, or fluid collections. LYMPH NODES: No lymphadenopathy. MUSCULOSKELETAL: No acute or suspicious osseous abnormality. ADDITIONAL FINDINGS: None. IMPRESSION: Mid to distal appendix is again patulous, measuring up to 10 mm in caliber, however with progressive luminal contrast opacification suggesting patency. No progressive inflammatory changes. No other acute or concerning abnormalities in the abdomen or pelvis, with evaluation limited by lack of IV contrast.
[2024-09-18] MEDS: ACETAMINOPHEN 500 MG TAB PO PRN (17:01)
[2024-09-18] MEDS: MORPHINE 4 MG/ML SYR IV PRN (17:40)
--- NOTE | 2024-09-18 18:14 | CON ---
Date of Consultation: 09/18/2024 Reason For Service: Pelvic and right lower quadrant pain. History Of Present Illness: This is the case of a 24-year-old patient who came to us with an abdomin al pain worse last night. She is on her period. She noticed it was a little bit more than usual, so she came to the ER. When she went to the ER, she was diagnosed with abdominal pain, but the CAT sca n was inconclusive. It shows some enlargement of the appendix that could be chronic because no infla mmation in that area, so we decided to keep her overnight and repeat the CAT scan this morning. She feels a lot better compared with last night. No nausea, no vomiting. No shortness of breath. No ch est pain. Review of Systems: Ten points otherwise unremarkable, although she comes with an abdominal pain yesterday. She is on he r period. She states normally is painful. Allergies: NONE. Social History: Does not smoke. She does not drink alcohol. Family History: Noncontributory. Medical History: Asthma. Surgical History: None. Physical Examination: Vital Signs: Reviewed, afebrile. General: The patient is awake, alert. No distress. HEENT: Pupils are equal and reactive. Anicteric. Neck: Supple. Chest: Clear. Heart: S1, S2 Abdomen: Soft and depressible. No guarding or rebound or peritoneal signs. The pelvic pain she has last night has subsided. Breasts: Deferred. Pelvis: Deferred. Rectal: Deferred. Extremities: Good capillary refill. Laboratory Data: Blood work shows a WBC count of 7.9, hemoglobin 13. Chloride is 110, potassium 3.[address] was repeated from yesterday as an evaluation few hours later since she was in need fo r observation. I discussed the case with the radiologist, Dr. Alex. No evidence of obstruction. Mid to distal appendix that measured about 1 cm in caliber. Progressive luminal contrast opacificati on suggesting patency. No progressive inflammation when compared with the previous CT scan a few jg rs yesterday. Assessment: A 24-year-old patient feels better. We explained to her obviously the options of laparo scopy, but she feels better. The CAT scan does not show any acute pathology, so she wants to try pauly e diet. We are going to do full liquids first and advance as tolerated. If she gets sicker, then norma roth will let me do a diagnostic laparoscopy, possible appendectomy. If not, she is going to follow up with her crime data specialist and follow with me as an outpatient. We will see how she does in the next few hours clinically. For the CAT scan of the abdomen and pelvis, there is a mention of a cystic lesion, it is about 2.3 cm on the CAT scan in the right side of the liver and we encouraged her to discuss t hat with the primary doctor for any other tests indicated, although not emergent at this moment. May have to discuss with the primary doctor. Also, she was advised to discuss the case with the gynecol ogist about low density in the uterine fundus, which may represent a dilated endometrium. SOLOMON/TRISTAN Voice ID: [id number] Report ID: [id number]
[2024-09-19] MEDS: ONDANSETRON 4 MG/2 ML VIAL IV PRN (00:25)
[2024-09-19 05:48] LABS: Absolute Eosinophils 0.5 K/uL (0-0.5); Absolute Lymphocytes (CBC) 1.9 K/uL (0.7-4.9); Absolute Monocytes 0.5 K/uL (0.1-1.3); Absolute Neutrophil 2.7 K/uL (1.8-8.0); Basophils % 0.5 % (0-1.3); Eosinophils % 8.6 % (0-4.4); Hematocrit 38.1 % (36.0-45.0); Lymphocytes % 34.5 % (15.3-44.8); MCH 30.6 pg (27.0-35.0); MCHC 34.1 g/dL (32.0-36.0); MCV 89.7 fL (80-100); MPV 8.4 fL (7.6-11.3); Monocytes % 8.3 % (3.3-12.3); Neutrophils % 48.1 % (41.7-73.7); Nucleated Red Blood Cells % 0.1 % (0-0); Platelets 216 thou/uL (152-406); RBC Red Blood Cell Count 4.25 M/uL (3.86-4.86); Red Cell Distribution Width 12.9 % (12.1-15.2)
[2024-09-19 06:09] LABS: ALT/SGPT 25 U/L (13-56); AST/SGOT 14 U/L (15-37); Albumin 3.2 g/dL (3.4-5.0); Albumin/Globulin Ratio 1.1 (1.1-1.8); Alkaline Phosphatase 53 U/L (45-117); Anion Gap 7.8 mEq/L (5.0-15.0); BUN Blood Urea Nitrogen 6 mg/dL (7-18); Bicarbonate 26 mEq/L (21-32); Bilirubin Total 1.1 mg/dL (0.2-1.0); Globulin 2.9 g/dL (2.3-3.5); Glomerular Filtration Rate 125 ml/min (=/>90); Glucose Level 97 mg/dL (74-106); Magnesium 2.1 mg/dL (1.6-2.4); Potassium 3.8 mEq/L (3.5-5.1); Protein, Total 6.1 g/dL (6.4-8.2); Sodium Level 140 mEq/L (136-145)
[2024-09-19 06:13] LABS: HCG, Quantitative < 1 mIU/mL (1-3)
--- NOTE | 2024-09-19 08:43 | P.PN ---
Date of Service: 09/19/24 Subjective: reports had exacerbation of RLQ pain and nausea/vomiting after liquid diet yesterday last ate/drank last night feels different than her typical pain from menstruation reports at least 2 episodes of emesis overnight multiple BM yesterday afebrile ROS: 10 point ROS as noted above, otherwise negative Physical Exam: GEN: Alert, oriented, NAD CV: Regular rate and rhythm, no edema Pulm: Nonlabored respirations on room air, clear bilaterally ABD: soft, moderate tenderness to palpation in RLQ and mild in suprapubic region, nondistended Problem List: Acute early appendicitis Intractable nausea/vomiting Lower abdominal/Suprapubic pain 3cm Liver lesion, incidental CT finding on admission, presents with RLQ pain radiating to LLQ associated with nausea/vomiting. Denies diarrhea/constipation. CT abd/pelvis (09/17): Possible acute early appendicitis. 2.3 cm enhancing lesion within the liver. Prominent low-density area uterine fundus. liver u/s (09/18): Diffuse hepatic steatosis. 3.0 cm hypoechoic right liver lobe lesion. Possible focal fatty sparing vs atypical hemangioma vs adenoma. Follow up with GI for further work up, outpatient MRI for further eval Dr. Holder, general surgeon consulted UA with leuk est, WBCs, microscopic hematuria - likely effected by currently menstruating continue empiric zosyn (09/18-) repeat CT abd/pelvis (09/18): Mid to distal appendix is again patulous, measuring up to 10 mm in caliber, however with progressive luminal contrast opacification suggesting patency. Patient continues with abdominal pain, +multiples episodes of emesis overnight. She reports new RLQ pain after intake, different from her suprapubic pain. Updated Dr. Holder. Patient made NPO for possible surgery. NPO for possible lap appy. Dr. Holder to re-eval Code: Full Dispo: Home, ~24 hrs Pending surgical re-eval, possible surgery Time Spent Managing Pts Care (In Minutes): 55
[2024-09-19 09:18] LABS: Sqamous Epithelial <5 /HPF (None Seen); Urine Bacteria None Seen /HPF (<20); Urine Bilirubin NEGATIVE (Negative); Urine Blood 3+ (OVER) (Negative); Urine Clarity Extremely Turbid (Clear); Urine Color Colorless (Yellow); Urine Culture Reflex Order NOT NEEDED; Urine Glucose NEGATIVE (Negative); Urine Ketones NEGATIVE (Negative); Urine Microscopic Reflex YN ORDER UMIC; Urine Nitrite NEGATIVE (Negative); Urine Protein NEGATIVE (Negative); Urine RBC >50 /HPF (None Seen); Urine Urobilinogen Normal (Normal)
[2024-09-19] MEDS ORDERED: propofoL 200 MG/20 ML VIAL IV ONE (09:43)
[2024-09-19] MEDS ORDERED: NEOSTIGMINE 1 MG/ML -10 ML VIAL ONE (09:43)
[2024-09-19] MEDS ORDERED: ROCURONIUM 50 MG/5 ML VIAL IV ONE (09:43)
[2024-09-19] MEDS ORDERED: GLYCOPYRROLATE 0.2 MG/ML SYR ONE (09:43)
[2024-09-19] MEDS ORDERED: LIDOCAINE 2% MPF 5 ML VIAL ONE (09:43)
[2024-09-19] MEDS ORDERED: FENTANYL CITR 100 MCG/2 ML ONE (09:43)
[2024-09-19] MEDS ORDERED: ONDANSETRON 4 MG/2 ML VIAL ONE (09:43)
[2024-09-19] MEDS ORDERED: MIDAZOLAM HCL 2 MG/2 ML INJ ONE (09:43)
--- NOTE | 2024-09-19 10:44 | PN ---
Ms. Elena is a 24-year-old patient who comes to us with pelvic and right lower quadrant pain. Yes terday, she saw some improvement and a trial of liquid was started, but overnight she did not do well . Today, the pain is back again in the right lower quadrant. I was contacted by the primary doctor. We kept the patient then n.p.o. this morning and offered her once again diagnostic laparoscopic, po ssible open appendectomy with benefits, alternatives, and risks including, but not limited to, infect ion, bleeding, damage to adjacent structures, anesthesia complication, negative appendix, AR, and johnathan n . She also understands this may not relieve any symptoms. She might need more than one surgi mena intervention. She discussed that with her and she liked the option today that we describ ed above. She understands the importance of following up with her guitar maker hand for her liver l esion in the future and also with the cut off saw tender metal for her uterine also, findings on the CAT scan. S he understood the abdomen/right lower quadrant and pelvic pain today and tenderness. CBC and Chem-7 discussed with the patient. SOLOMON/MODL Voice ID: [id number] Report ID: [id number]
[2024-09-19] MEDS ORDERED: EPHEDRINE SULF 50 MG/ML VIAL ONE (11:00)
[2024-09-19] MEDS ORDERED: MEPERIDINE HCL 25 MG/ML SYR ONE (11:01)
[2024-09-19 11:53] VITALS: O2SAT 97
--- NOTE | 2024-09-19 11:53 | P.BOP ---
Preoperative diagnosis: Acute abdominal pain Postoperative diagnosis: same Primary procedure: Laparoscopic appendectomy Estimated blood loss: <10cc Specimen: appendix Findings: see dicta Anesthesia: General Complications: None Transferred to: Recovery Room Condition: Good
[2024-09-19] MEDS: HYDROCODONE/APAP 5/325 MG TAB PO PRN (12:04)
--- NOTE | 2024-09-19 13:49 | OP ---
Date of Procedure: 09/19/2024 Surgeon: Hammad Holder MD Preoperative Diagnosis: Acute abdominal pain. Postoperative Diagnosis: Acute abdominal pain. Procedure: Laparoscopic appendectomy. Estimated Blood Loss: Less than 10 cc. Specimen: Appendix. Findings: Asymmetrical appendix in size and color. She also have some blood in the pelvis. She is right now on her menstrual period. I will look at the area of the liver at least anteriorly. I coul d not see any masses there, although once again, the CAT scan shows there is a mass and most likely i ntraparenchymal. I looked at the area of the uterus also and I do not see any masses outside the [place]. Once again, she may have some masses deep inside. Complications: None. Indications: This is a case of a lady who comes to us with abdominal pain. Normally she has abdomin al pain for her period. This time it was a little bit worse and then improved going back to her sean od. But this morning the pain came back once again, so I offered her diagnostic lap and possible esther endectomy with benefits, alternatives, and risks including, but not limited to infection, bleeding, d amage to adjacent structures, anesthesia complication, nonhealing wound, NM, and even . She als o understands the possibility of negative appendix. We discussed with her before the findings on the liver, the findings of the uterus, the finding also of may be just blood because she is on her perio d and also the findings of the pathology of the appendix and how it is important for her to follow up in the future to make sure that pathology when the appendix gets removed is examined due to the abno rmal size. The patient signed a consent. Description Of Procedure: The patient brought to the operating room, placed in supine position. Ane sthesia was done without complication. Abdominal area was prepped and draped in usual sterile fashio n. Local anesthesia was applied in the infraumbilical region. Incision was carried down to fascia, which was opened under direct vision. Peritoneum was encountered and opened under direct vision. Vi cryl #1 placed inside the fascia. Victoria trocar was carefully introduced. Pneumoperitoneum was obta ined. At that moment, I proceeded then to take a look at the abdomen. Once again, we did diagnostic lap first. Since we noticed the appendix to be abnormal in shape. I put a 5 mm trocar in the supra pubic area and another 1 in left lower quadrant under direct visualization. This allowed me to do th e diagnostic lap. Ascending, transverse, descending colon I did not see any extraluminal masses. Th e appendix is definitely asymmetrical in shape. I do not see any major stranding, but it is narrowed beginning large in the middle and narrow at the end and with some content that cannot rule out. It does not come to the wall of the appendix itself. No ulcerations seen. Then, we look at the area of the liver, check dimensions and the CAT scan some findings, but at least anteriorly, I cannot see th at mass left or right side, might be much to be intraparenchymal. Stomach was soft and compressible. In the area of the cul-de-sac there is some blood accumulated, most likely coming from the left fal lopian tube. There are no masses seen. Ovaries with no masses seen in the uterus neither. She is o nce again on her menstrual period. So, we went back to the appendix. Due to a thick mesentery, I us ed the LigaSure to take the mesentery down and mobilize the cecum a little bit just to get the append ix released. Then, after that, transect the appendix at the base of the appendix with an Endo-TAL 45 mm nonvascular. Appendix removed from abdominal cavity using EndoCatch through umbilical incision. Irrigation was done in the pelvis and the right lower quadrant until clean. No bleeding. No bowel leak. At that moment, I proceeded to remove the trocars under direct vision. Deflated the pneumoper itoneum. Closed the fascia with #1 Vicryl, irrigated subcutaneous tissue, closed with 3-0 chromic an d skin with deng. Sponge count and instrument counts correct. The patient tolerated the procedur e well. The patient sent to Recovery in stable condition. SOLOMON/MODL Voice ID: [id number] Report ID: [id number]
[2024-09-20 04:42] VITALS: TEMP 98.2
[2024-09-20 06:29] LABS: Albumin 3.1 g/dL (3.4-5.0); Albumin/Globulin Ratio 0.9 (1.1-1.8); Anion Gap 8.4 mEq/L (5.0-15.0); Bilirubin Total 1.1 mg/dL (0.2-1.0); Globulin 3.3 g/dL (2.3-3.5); Magnesium 2.2 mg/dL (1.6-2.4); Potassium 3.4 mEq/L (3.5-5.1); Protein, Total 6.4 g/dL (6.4-8.2)
[2024-09-20 08:40] VITALS: BP 128/60
--- NOTE | 2024-09-20 08:43 | P.DS ---
Admission Date: 09/17/24 Discharge Date: 09/20/24 Disposition: ROUTINE DISCHARGE Discharge Condition: GOOD Reason for Admission: Appendicitis Consultations: General surgery - Dr. Holder Brief History of Present Illness: 24yo F, PMH: asthma Patient presents to the emergency room with abdominal pain. She reports associated nausea vomiting started yesterday. She reports abdominal pain is right lower quadrant, radiates to the left lower quadrant, she denies constipation, diarrhea, fever, recent infection. Laboratory evaluation leukocytosis 11.80, neutrophils 83.2, chemistry unremarkable, urinalysis mild leukocytosis 75, 3+ hematuria. CT shows acute early appendicitis, plan to admit for appendicitis with surgery to consult. Hospital Course: Problem List: Acute early appendicitis, s/p lap appy (09/19) Intractable nausea/vomiting, resolved Lower abdominal/Suprapubic pain 3cm Liver lesion, incidental CT finding Physician discharge instructions: Patient presented with lower abdominal pain associated with nausea/vomiting secondary to acute appendicitis. CT abdomen/pelvis on admission with findings suggestive of possible early acute appendicitis, in addition to a prominent low-density area uterine fundus, and 2.3 cm enhancing lesion within the liver. CT noted equivocal findings for appendicitis. Given the slight uncertainty, a repeat CT was done with oral contrast - which noted similar findings. Dr. Holder, general surgery, was consulted. She initially felt some mild improvement with bowel rest and pain control, so she was PO challenged - which lead to increased pain / nauses/vomitng on 09/18. Patient was re-evaluated by Dr. Holder and underwent lap appy on 09/19. Patient was monitored overnight, feeling better, abdominal pain improved, tolerating diet without issues and deemed stable for discharge. Patient received IV zosyn while hospitalized and is to complete 1 week of oral Augmentin on discharge. Follow up with Dr. Holder in office in 1 week for further management. Continue soft diet for next 3-5 days. Can slowly ease back into regular diet over the next week. Avoid fatty/greasy foods. Initial CT abdomen/pelvis incidentally noted a 2.3 cm lesion within the liver. Liver ultrasound noted a subcapsular posterior right lobe 3.0 cm hypoechoic lesion, also noted diffuse hepatic steatosis. These findings favor focal fatty sparing, versus an atypical hemangioma, although other etiologies such as an adenoma may be possible although less likely. Discussed findings with patient and Dr. Holder. Advised her to follow up with her PCP/GI for further discussion and to consider outpatient MRI for further evaluation. She did report recent urine testing - she reports using 2 different tests and both were faintly positive. CT abdomen on admission did note a prominent low-density area uterine fundus. It is uncertain if this represents dilated endometrium, fibroid or artifact - but can be seen during menstruation, which she is currently having. Intra-operatively, Dr. Holder did note a small amount of blood in the pelvix floor suggestive of reflux through fallopian tube which can occur during menstruation. Patient reported already having an appointment to see gynecology, and recommended to have further discussion / follow up in near future. Medications: Augmentin 875 mg BID x1 week Tylenol #3 as needed for pain Follow up: PCP 3-5 days GI in 2-4 weeks Gynecology in 2-[address] Holder in office in 1 week. Please call to schedule / confirm appointments No heavy lifting > 10lbs for 4-6 weeks. Do not submerge wounds underwater. Ok to shower / get wet 48hrs after surgery Vital Signs/Physical Exam: Temp Pulse Resp BP Pulse Ox 98.2 F 87 16 128/60 94 09/20/24 04:00 09/20/24 08:00 09/20/24 08:00 09/20/24 08:00 09/20/24 08:00 Laboratory Data at Discharge: WBC 5.60 thou/uL (4.3-10.9) 09/19/24 05:18 Hgb 13.0 g/dL (12.0-15.0) 09/19/24 05:18 Hct 38.1 % (36.0-45.0) 09/19/24 05:18 Plt Count 216 thou/uL (152-406) 09/19/24 05:18 Sodium 139 mEq/L (136-145) 09/20/24 05:58 Potassium 3.4 mEq/L (3.5-5.1) L 09/20/24 05:58 BUN 7 mg/dL (7-18) 09/20/24 05:58 Creatinine 0.64 mg/dL (0.55-1.02) 09/20/24 05:58 Glucose 107 mg/dL (74-106) H 09/20/24 05:58 Magnesium 2.2 mg/dL (1.6-2.4) 09/20/24 05:58 Total Bilirubin 1.1 mg/dL (0.2-1.0) H 09/20/24 05:58 AST 11 U/L (15-37) L 09/20/24 05:58 ALT 22 U/L (13-56) 09/20/24 05:58 Alkaline Phosphatase 53 U/L (45-117) 09/20/24 05:58 Lipase 30 U/L (13-75) 09/17/24 16:15 Home Medications: Amox/Clavulanate [Augmentin 875-125 Tab] 1 tab PO BID 7 Days #14 tab 09/20/24 Codeine/APAP [Tylenol W/Codeine #3 tab] 1 tab PO Q6HP PRN #10 tab 09/20/24 New Medications: Codeine/APAP [Tylenol W/Codeine #3 tab] 1 tab PO Q6HP PRN #10 tab PRN Reason: Pain Amox/Clavulanate [Augmentin 875-125 Tab] 1 tab PO BID 7 Days #14 tab Physician Discharge Instructions: Physician discharge instructions: Patient presented with lower abdominal pain associated with nausea/vomiting secondary to acute appendicitis. CT abdomen/pelvis on admission with findings suggestive of possible early acute appendicitis, in addition to a prominent low-density area uterine fundus, and 2.3 cm enhancing lesion within the liver. CT noted equivocal findings for appendicitis. Given the slight uncertainty, a repeat CT was done with oral contrast - which noted similar findings. Dr. Holder, general surgery, was consulted. She initially felt some mild improvement with bowel rest and pain control, so she was PO challenged - which lead to increased pain / nauses/vomitng on 09/18. Patient was re-evaluated by Dr. Holder and underwent lap appy on 09/19. Patient was monitored overnight, feeling better, abdominal pain improved, tolerating diet without issues and deemed stable for discharge. Patient received IV zosyn while hospitalized and is to complete 1 week of oral Augmentin on discharge. Follow up with Dr. Holder in office in 1 week for further management. Continue soft diet for next 3-5 days. Can slowly ease back into regular diet over the next week. Avoid fatty/greasy foods. Initial CT abdomen/pelvis incidentally noted a 2.3 cm lesion within the liver. Liver ultrasound noted a subcapsular posterior right lobe 3.0 cm hypoechoic lesion, also noted diffuse hepatic steatosis. These findings favor focal fatty sparing, versus an atypical hemangioma, althoug h other etiologies such as an adenoma may be possible although less likely. Discussed findings with patient and Dr. Holder. Advised her to follow up with her PCP/GI for further discussion and to consider outpatient MRI for further evaluation. She did report recent urine testing - she reports using 2 different tests and both were faintly positive. CT abdomen on admission did note a prominent low-density area uterine fundus. It is uncertain if this represents dilated endometrium, fibroid or artifact - but can be seen during menstruation, which she is currently having. Intra-operatively, Dr. Holder did note a small amount of blood in the pelvix floor suggestive of reflux through fallopian tube which can occur during menstruation. Patient reported already having an appointment to see gynecology, and recommended to have further discussion / follow up in near future. Medications: Augmentin x1 week [place] 5/325 as needed for pain Follow up: PCP 3-5 days GI in 2-4 weeks Gynecology in 2-[address] Holder in office in 1 week. Please call to schedule / confirm appointments No heavy lifting > 10lbs for 4-6 weeks. Do not submerge wounds underwater. Ok to shower / get wet 48hrs after surgery Followup: Hammad Holder MD [ACTIVE - CAN ADMIT] - 1 Week NONE,NONE [Primary Care Provider] - Time spent managing pt's care (in minutes): 45
[2024-09-20] MEDS: POTASSIUM CL SA 10 MEQ TAB PO ONE (09:02)
== END 2024-09-20 10:43 | disposition home or self-care (01) | DRG 398 ==
LOC: ER 15:11 → ERHOLD 22:33 → 2ND 23:49
PROVIDERS: ADMIT Hospitalist; ATTEND Hospitalist
PROC: 0DTJ4ZZ Resection of Appendix, Percutaneous Endoscopic Approach (ICD-10-PCS; principal; 2024-09-19 09:30)
DX: K35.80 Unspecified acute appendicitis (principal); N30.01 Acute cystitis with hematuria; J45.909 Unspecified asthma, uncomplicated; K76.9 Liver disease, unspecified
CPT/HCPCS: 36415; 74176; 74177; 76705; 80048; 80053; 81001; 83690; 83735; 84702; 84703; 85025; 87086; 87088; 88304; 94010; 96361; 96374; 96375; 99285; A4314; J2003; J2175; J2250; J2405; J2543; J2704; J2710; J2765; J3010; J7030; Q9967